=== PATIENT | female | born 1960 | race Caucasian/White ===

== ENCOUNTER 2020-06-05 14:05 | Outpatient (REF) | payer MEDICARE, MEDICAID, SELFPAY ==
--- NOTE | 2020-06-05 14:10 | XR_ITS ---
EXAMINATION: XR CHEST CLINICAL INFORMATION: Cough COMPARISON: CT chest noncontrast 01/25/2020, chest radiographs 05/04/2019 and 01/17/2018 TECHNIQUE: 2 views of the chest were obtained. FINDINGS: There is opacity right anterior medial base consistent with area of probable subsegmental atelectasis on CT 01/25/2020. Remainder of the lungs are clear with no lobar or segmental airspace consolidation. The heart is normal in size. The vascularity is normal. The costophrenic sulci are clear. The hilar and mediastinal contours are normal. No acute bony abnormality. XR/XR chest 2V IMPRESSION: 1. Opacity right anterior medial base consistent with probable subsegmental atelectasis on CT 01/25/2020. Recommend follow-up chest in 8 weeks to confirm resolution. If persistent, then follow-up CT chest without contrast. 2. Otherwise, no lobar or segmental airspace consolidation, vascular congestion, or effusion.
== END 2020-06-05 14:06 | disposition home or self-care (01) ==
LOC: HO.HMGCX 14:05
PROVIDERS: PCP Internal Medicine; Visit Provider Physician Assistant
DX: R05 Cough (principal); Z20.822 Contact with and (suspected) exposure to COVID-19; R07.81 Pleurodynia
CPT/HCPCS: 36415; 71046; U0003

== ENCOUNTER 2020-11-17 09:30 | Day surgery (SDC) | payer MEDICARE, MEDICAID, SELFPAY ==
[2020-11-13 15:50] VITALS: BMI 30.9
--- NOTE | 2020-11-16 10:43 | P.CONAN_ITS ---
HPI - Anesthesia Eval Consult details Narrative: 60yo F for Upper Endoscopy and Colonoscopy stable cardiac visit 11/2019 for incipient chf with 1 year f/u [facility] Active Problems Active Problems: All Active Problems (Updated 11/13/20 @ 16:05 by Dorothy Alvarez) Cough (Acute) Rib pain on left side (Acute) Past Medical History Medical History (HFpEF) heart failure with preserved ejection fraction Anxiety and depression Asthma Complex partial seizure disorder COVID-19 vaccine series started Dyskinesia Edema of both lower extremities Fatty liver History of seizure Low back pain PFO (patent foramen ovale) Surgical History Surgical History (Updated 11/13/20 @ 15:39 by Dorothy Alvarez) History of esophagogastroduodenoscopy (EGD) History of loop electrical excision procedure (LEEP) Hx of colonoscopy Social History Social History Patient Tobacco Use Status: Current everyday Tobacco user Tobacco use type: Cigarette Cigarette Packs Per Day: 1 Cigarettes Per Day: 20.0 Years Smoked: 30 Meds Allergies Allergy/AdvReac Type Severity Reaction Status Date / Time No Known Allergies Allergy Verified 11/13/20 15:39 [No Known Allergies*] Home Medications Medication Instructions Recorded Confirmed Last Taken Type alprazolam 0.5 mg tablet 0.5 mg PO BID PRN 06/05/20 11/13/20 11/17/20 08:00 History biotin 10,000 mcg capsule 10,000 mcg PO DAILY 06/05/20 11/13/20 Unknown History escitalopram oxalate 20 mg tablet 20 mg PO DAILY 06/05/20 11/13/20 11/17/20 08:00 History gabapentin 600 mg tablet 600 mg PO BEDTIME 06/05/20 11/13/20 Unknown History Anoro Ellipta INHALATION 11/13/20 Unknown History Ingrezza 1 cap PO DAILY 11/13/20 11/13/20 11/17/20 08:00 History albuterol sulfate 2 puff INHALATION Q4-6H PRN 11/13/20 11/13/20 Unknown History aspirin 81 mg PO DAILY 11/13/20 11/13/20 Unknown History cholecalciferol (vitamin D3) 50 mcg PO DAILY 11/13/20 11/13/20 Unknown History [Vitamin D3] gabapentin 300 mg PO BID 11/13/20 11/13/20 11/17/20 08:00 History oxcarbazepine 1 tab PO BID 11/13/20 11/13/20 11/17/20 08:00 History Exam Exam Date and Time: November 16, 2020 1043 Height,Weight and Vital Signs: Height 5 ft 4 in Weight 81.647 kg Narrative Narrative: Stress/Mibi nml perfusion 08/2019 Echo 07/2019 Mormal LV sys and diastolic function Mild MR Normal RV sys pressure No pericardial effusion No evidence of PFO EKG 06/2019 Normal sinus rhythm RBBB Cannot r/o inferior infarct (old) T wave abnormality, consider lateral ischemia No signif change from 04/2019 Assessment and Plan Assessment Anesthesia Assessment: Chart Reviewed
[2020-11-17 10:02] VITALS: BP 113/69; PULSE 77; RESP 16; TEMP 36.1; O2SAT 91
--- NOTE | 2020-11-17 10:08 | HO.ANESPROP2 ---
[facility] Active Problems Active Problems: All Active Problems (Updated 11/13/20 @ 16:05 by Dorothy Alvarez) Cough (Acute) Rib pain on left side (Acute) Past Medical History Medical History (HFpEF) heart failure with preserved ejection fraction Anxiety and depression Asthma Complex partial seizure disorder COVID-19 vaccine series started Dyskinesia Edema of both lower extremities Fatty liver History of seizure Low back pain PFO (patent foramen ovale) Surgical History Surgical History (Updated 11/13/20 @ 15:39 by Dorothy Alvarez) History of esophagogastroduodenoscopy (EGD) History of loop electrical excision procedure (LEEP) Hx of colonoscopy Social History Social History Patient Tobacco Use Status: Current everyday Tobacco user Tobacco use type: Cigarette Cigarette Packs Per Day: 1 Cigarettes Per Day: 20.0 Years Smoked: 30 Smoked in Last 30 Days: Yes Use of substances other than those prescribed or required for medical reasons: Yes Substance Use Frequency: Occasionally Are you DNR?: No Advance Directives: No Advance Directives Information Provided: No Advance Directives on File: No Meds Allergies Allergy/AdvReac Type Severity Reaction Status Date / Time No Known Allergies Allergy Verified 11/13/20 15:39 [No Known Allergies*] Active Medications: Current Medications Generic Name Dose Route Start Last Admin Trade Name Freq PRN Reason Stop Dose Admin Albuterol Sulfate 2.5 mg 11/17/20 06:17 Albuterol Sulfate (0.083%) 2.5 Mg/3 Ml Vial.Neb INHALE ONCE PRN Shortness of Breath/Wheezing Lactated Ringer's 500 mls @ 20 mls/hr 11/17/20 06:30 Lr IVCONT .Q24H KATHLEEN Home Medications Medication Instructions Recorded Confirmed Last Taken Type alprazolam 0.5 mg tablet 0.5 mg PO BID PRN 06/05/20 11/13/20 11/17/20 08:00 History biotin 10,000 mcg capsule 10,000 mcg PO DAILY 06/05/20 11/13/20 Unknown History escitalopram oxalate 20 mg tablet 20 mg PO DAILY 06/05/20 11/13/20 11/17/20 08:00 History gabapentin 600 mg tablet 600 mg PO BEDTIME 06/05/20 11/13/20 Unknown History albuterol sulfate 2 puff INHALATION Q4-6H PRN 11/13/20 11/13/20 Unknown History aspirin [Aspir-81] 81 mg PO DAILY 11/13/20 11/13/20 Unknown History cholecalciferol (vitamin D3) 50 mcg PO DAILY 11/13/20 11/13/20 Unknown History [Vitamin D3] gabapentin 300 mg PO BID 11/13/20 11/13/20 11/17/20 08:00 History oxcarbazepine 1 tab PO BID 11/13/20 11/13/20 11/17/20 08:00 History umeclidinium-vilanterol [Anoro INHALATION 11/13/20 Unknown History Ellipta] valbenazine [Ingrezza] 1 cap PO DAILY 11/13/20 11/13/20 11/17/20 08:00 History Exam Exam Date and Time: November 17, 2020 1008 Height,Weight and Vital Signs: Height 5 ft 4 in Weight 81.647 kg Last Vital Signs Temp 96.9 F 11/17/20 10:02 Pulse 77 11/17/20 10:02 Resp 16 11/17/20 10:02 BP 113/69 11/17/20 10:02 Pulse Ox 91 L 11/17/20 10:02 Airway Mallampati Class: III TM Dist: >3cm Heart: RRR Lungs: CTA
[2020-11-17] MEDS: Lactated Ringers 500 ML 20 ML IVCONT (10:17)
--- NOTE | 2020-11-17 10:23 | MHC.SHP ---
Pre-Procedural Eval Section A Date of Service: 11/17/20 The patient is an INPATIENT: No Changes since office visit: No Cold of Flu in the past 2 weeks, No New Medical Problems, No Changes in Medication and No Patient answered all questions The History & Physical has been completed within 30 days and I have reviewed it.: Yes Section B Chief Complaint: reflux disease,screening Allergies: Allergies Allergy/AdvReac Type Severity Reaction Status Date / Time No Known Allergies Allergy Verified 11/13/20 15:39 [No Known Allergies*] Plan I have reviewed the history and physical and performed a pertinent physical examination on my patient. No changes have occurred unless specified.
--- NOTE | 2020-11-17 11:00 | PM.OP ---
Brief Operative Note Date of Service: 11/17/20 Pre-op diagnosis: gerd screening Post-op diagnosis: same Procedure: egd, colonoscopy Surgeon: Angelito Adler Anesthesia: MAC Was an Chief Maintenance Supervisor used for this Procedure?: No Estimated blood loss (mL): 2 Pathology: other (bxs antrum,egj and icv) Condition: stable Disposition: PACU
[2020-11-17 11:02] VITALS: BP 98/64; PULSE 68; RESP 16; TEMP 36.5; O2SAT 95
[2020-11-17 11:17] VITALS: BP 116/68; PULSE 58; RESP 18; TEMP 36.2; O2SAT 94
--- NOTE | 2020-11-17 12:05 | OP_ITS ---
SURGEON: Angelito Adler MD INDICATIONS: Gastroesophageal reflux disease and colon cancer screening. PREOPERATIVE DIAGNOSIS: POSTOPERATIVE DIAGNOSIS: PROCEDURE PERFORMED: 1. Upper endoscopy with biopsy. 2. Colonoscopy to the terminal ileum with biopsy. ESTIMATED BLOOD LOSS: COMPLICATIONS: ANESTHESIA: ASSISTANTS: SPECIMENS: MEDICATIONS: Monitored anesthesia care. DESCRIPTION OF PROCEDURE: History and physical performed. The risks and benefits of the procedure were explained to the patient. Informed consent was obtained. The patient was placed in left lateral decubitus position. A digital rectal exam was performed prior to the colonoscopy. The Olympus video gastroscope was introduced into the esophagus, stomach, and duodenum. Examination was performed and the scope was removed. She was repositioned for colonoscopy. The Olympus pediatric video colonoscope was introduced into the rectum and advanced to the cecum without difficulty. The cecum was identified by transillumination, palpation, and identification of ileocecal valve. Abdominal wall pressure was used to assist in advancement of the scope due to looping in the sigmoid. Examination was performed and the scope was removed. She tolerated both procedures well and was taken to recovery area in stable condition. FINDINGS: UPPER ENDOSCOPY: Esophagus: The esophagus was normal. The EG junction showed no esophagitis. Biopsies were obtained from the EG junction, which was slightly irregular. Stomach: Stomach showed no evidence of masses, ulcers, or polyps. Antral biopsies were obtained to rule out H pylori. Duodenum: The bulb and second portion were normal. COLONOSCOPY: The terminal ileum appeared normal. There was some minor nonspecific inflammation at the ileocecal valve, which was biopsied. No polyps were identified. The quality of the prep was good. Retroflexed examination was normal. IMPRESSION: 1. Gastroesophageal reflux disease. 2. Essentially normal colonoscopy. RECOMMENDATIONS: 1. Follow up the biopsy results. 2. Repeat colonoscopy is recommended in 5 years because of family history of colon polyps. MD ILAN Daniels/ROXANNA / [id number]
== END 2020-11-17 11:48 | disposition home or self-care (01) ==
PROVIDERS: PCP Internal Medicine; Visit Provider Internal Medicine Gastroenterology
PROC: (CPT 43239; principal; 2020-11-17 10:40)
DX: Z12.11 Encounter for screening for malignant neoplasm of colon (principal); K21.9 Gastro-esophageal reflux disease without esophagitis; K76.0 Fatty (change of) liver, not elsewhere classified; I50.30 Unspecified diastolic (congestive) heart failure; G40.209 Localization-related (focal) (partial) symptomatic epilepsy and epileptic syndromes with complex partial seizures, not intractable, without status epilepticus; G24.9 Dystonia, unspecified; J45.909 Unspecified asthma, uncomplicated; F32.9 Major depressive disorder, single episode, unspecified; Q21.1 Atrial septal defect; F17.210 Nicotine dependence, cigarettes, uncomplicated; Z79.51 Long term (current) use of inhaled steroids; Z79.82 Long term (current) use of aspirin; Z79.899 Other long term (current) drug therapy; Z83.71 Family history of colonic polyps
CPT/HCPCS: 43239; G0105; 88305; 88342

== ENCOUNTER → 2020-11-23 10:25 | Outpatient (REF) | payer MEDICARE, MEDICAID, SELFPAY ==
--- NOTE | 2020-11-23 10:30 | CA_ITS ---
Transthoracic Echocardiogram Patient (Last, First, Middle): Kayleigh Grossman, Gender: Female Date of : 1960 Age: 60 Procedure Date: 11/23/2020 Procedure Type: Transthoracic Echocardiogram Location: OP Height: 165.1 cm Weight: 81.65 kg BSA: 1.89 m2 Heart Rate: bpm BP: 118 / 69 mmHg Inside Channel Account Manager: DONATO/YUNIEL Referring MD: Saad Bernal MD Symptoms: I51.89 DIASTOLIC DYSFUNCTION I50.30 HFpEF Study Quality: Fair ECG Rhythm: Sinus Conclusions: - The left ventricular systolic function is normal. The calculated ejection fraction is 62% by biplane method. - No obvious valvular pathology seen on this study. - There is mild dilatation of the ascending aorta measuring 4.00 cm. Findings Left Ventricle Normal left ventricular cavity size. There is normal left ventricular wall thickness. The left ventricular systolic function is normal. The calculated ejection fraction is 62% by biplane method. There is no evidence of regional wall motion abnormalities. E/E prime ratio is between 8 and 15 consistent with indeterminate filling pressures. Evidence suggests grade I (mild) diastolic dysfunction. Right Ventricle Normal right ventricular cavity size and systolic function. Atria Both atria are normal in size. Aortic Valve There is a normal trileaflet aortic valve. There is no aortic valve stenosis. There is no aortic valve regurgitation. Mitral Valve The mitral valve appears normal. There is no mitral valve stenosis. Trace to mild mitral regurgitation. Pulmonic Valve The pulmonic valve was not well visualized. Tricuspid Valve Normal tricuspid valve structure. There is mild tricuspid valve regurgitation. The pulmonary artery systolic pressure is normal. Great Vessels There is mild dilatation of the ascending aorta measuring 4.00 cm. Venous The inferior vena cava is normal in size and collapses greater than 50% with inspiration. Pericardium/Pleural There is no evidence of pericardial effusion. Prior Study Comparison Changes noted compared to prior study dated: 08/13/2019. See comments on ascending aorta. Recommendations, Care & Conclusions No obvious valvular pathology seen on this study. Measurements 2D Linear Measurements IVSd: 0.71 0.6-0.9/0.6-1.0 cm LVIDd: 4.75 3.9-5.3/4.2-5.9 cm LVIDd Index: 2.51 2.4-3.2/2.2-3.1 cm/m2 LVIDs: 3.38 2.0-3.6 cm LVPWd: 0.75 0.7-1.1 cm Ao Root: 2.90 2.1-3.5 cm LA Diam: 3.40 2.7-3.8/3.0-4.0 cm LAIDs Index: 1.80 1.5-2.3 cm/m2 LV Mass: 137.60 67-162/88-224 g LV Mass Index: 72.81 43-95/49-115 g/m2 LVOT Diam: 2.00 3.0+(-)1.3 cm 2D Systolic Function EF 4C: 59.10 >55% EF 2C: 65.80 >55% EF BiP: 61.60 >55% Mitral Valve MV Pk E: 0.71 MV PK A: 0.67 MV Decel Time: 289.00 E/A: 1.10 E'Lateral: 9.68 E'Medial: 5.87 E/E' Med: 12.10 E/E' Lat: 7.30 PHT: 85.00 MVA PHT: 2.59 Decel [place]: 2.46 Aortic Valve AoV Pk Rigoberto: 1.54 AoV Mn Rigoberto: 1.10 AoV VTI: 0.36 AoV Pk Grad: 9.00 Aov Mn Grad: 5.00 [place] Cont.VTI: 2.92 LVOT LVOT Pk Rigoberto: 1.50 LVOT Mn Rigoberto: 1.00 LVOT VTI: 0.33 LVOT Pk Grad: 9.00 LVOT Mn Grad: 5.00 LVOT Diam: 2.00 LVOT Area: 3.14 Diastolic Function MV Pk E: 0.71 MV Pk A: 0.67 E/A: 1.10 E'Medial: 5.87 E/E' Med: 12.10 E' Laterial: 9.68 E/E' Lat: 7.30 Tricuspid Valve TR Pk Rigoberto: 2.80 TR Pk Grad: 31.00 RA Press: 3.00 RVSP: 34.00 Great Vessels Aorta Ao Root-2D: 2.90 2.0-3.7 cm Ao Asc: 4.00 2.1-3.4 cm Ao Arch: 2.50 Updated in Other Vendor System with Status of Final Ag Cagle MD electronically signed on 11/24/2020 1:05:44 PM with status of Final
== END ==
LOC: HO.CARD 10:25
PROVIDERS: Visit Provider Internal Medicine Cardiovascular Disease
DX: I51.89 Other ill-defined heart diseases (principal); I50.30 Unspecified diastolic (congestive) heart failure
CPT/HCPCS: 93306

== ENCOUNTER → 2020-11-30 09:45 | Outpatient (BNVA) | payer MEDICARE, MEDICAID, SELFPAY | PROVIDERS: PCP Internal Medicine; Visit Provider Internal Medicine Cardiovascular Disease | DX: I50.30 Unspecified diastolic (congestive) heart failure (principal) | CPT/HCPCS: 93005; 99212 ==

== ENCOUNTER 2020-12-13 10:49 | Emergency (ER) | payer MEDICARE, MEDICAID, SELFPAY ==
--- NOTE | ~2020-12-13 | US_ITS ---
EXAMINATION: US VENOUS ULTRASOUND WITH DOPPLER LOWER EXTREMITY, RIGHT CLINICAL INFORMATION: Right lower extremity pain. Assess for occult DVT. COMPARISON: None TECHNIQUE: Ultrasound of the deep veins is performed from the hip to the calf with compression sonography and color and pulse Doppler assessment. Spectral analysis with color-flow imaging is performed. FINDINGS: There is normal venous compression and respiratory variation and augmented flow. The visualized common femoral vein, superficial femoral vein, profunda femoral vein, popliteal vein, and the trifurcation region shows no evidence of deep venous thrombosis. No popliteal fossa cyst demonstrated. US/US venous duplex LE RT IMPRESSION: No DVT demonstrated in the right lower extremity.
[2020-12-13 10:59] VITALS: BP 125/85; PULSE 69; RESP 17; TEMP 36.9; O2SAT 96; BMI 30.9
--- NOTE | 2020-12-13 11:55 | ED.LOWEXIN ---
HPI - Extremity Injury (Lower) General Chief Complaint: Extremity Injury, Lower Stated Complaint: R LEG PAIN Time Seen by Provider: 12/13/20 11:29 History of Present Illness HPI Narrative: Patient complains of right leg pain mostly in the back of the leg of both the thigh and the calf which began today, there is no injury there has been no fever there is no redness or rash, she has no difficulty ambulating there is no numbness weakness or tingling Related Data Home Medications Medication Instructions Recorded Confirmed alprazolam 0.5 mg tablet 0.5 mg PO BID PRN 06/05/20 11/30/20 biotin 10,000 mcg capsule 10,000 mcg PO DAILY 06/05/20 11/30/20 escitalopram oxalate 20 mg tablet 20 mg PO DAILY 06/05/20 11/30/20 gabapentin 600 mg tablet 600 mg PO BEDTIME 06/05/20 11/30/20 albuterol sulfate 90 mcg/actuation 2 puff INHALATION Q4-6H PRN 11/13/20 11/30/20 aerosol inhaler aspirin 81 mg tablet,delayed 81 mg PO DAILY 11/13/20 11/30/20 release cholecalciferol (vitamin D3) 50 50 mcg PO DAILY 11/13/20 11/30/20 mcg (2,000 unit) capsule (Vitamin D3) umeclidinium 62.5 mcg-vilanterol INHALATION 11/13/20 11/30/20 25 mcg/actuation powdr for inhalation (Anoro Ellipta) oxcarbazepine 300 mg tablet 300 mg PO BID 11/30/20 11/30/20 valbenazine 80 mg capsule 80 mg PO DAILY 11/30/20 11/30/20 (Ingrezza) Previous Rx's Medication Instructions Recorded furosemide 20 mg tablet (Lasix) 20 mg PO DAILY 90 Days #100 tab 12/06/20 Allergies Allergy/AdvReac Type Severity Reaction Status Date / Time No Known Allergies Allergy Verified 12/13/20 10:59 [No Known Allergies*] Review of Systems Review of Systems: Positive for right leg pain Negatives are no fever no chills no dizziness no weakness no fainting no chest pain no shortness of breath no pain with a deep breath no abdominal pain no nausea or vomiting no skin rash no numbness weakness or tingling no joint swelling no back pain Yes all other systems are reviewed and are negative PMFSH Past Medical History Source: nursing notes reviewed Medical History (Updated 12/13/20 @ 14:08 by MARGARITA Ray) (HFpEF) heart failure with preserved ejection fraction Anxiety and depression Asthma Complex partial seizure disorder COVID-19 vaccine series started Dyskinesia Edema of both lower extremities Fatty liver History of seizure Low back pain PFO (patent foramen ovale) Surgical History History of esophagogastroduodenoscopy (EGD) History of loop electrical excision procedure (LEEP) Hx of colonoscopy Social History Social History Patient Tobacco Use Status: Current everyday Tobacco user Tobacco use type: Cigarette Cigarette Packs Per Day: 1 Cigarettes Per Day: 20.0 Years Smoked: 30 Advance Directives: Yes Advance Directives Information Provided: Yes Advance Directives on File: No Physical Exam Vital Signs: Vital Signs: Last Vital Signs Temp 98.4 F 12/13/20 10:59 Pulse 69 12/13/20 10:59 Resp 17 12/13/20 10:59 BP 125/85 12/13/20 10:59 Pulse Ox 96 12/13/20 10:59 Body Mass Index 30.9 General appearance is no distress Head is normocephalic atraumatic Neck is supple The chest is clear to auscultation bilateral no pleuritic pain with deep breath Abdomen soft nontender Extremities full range of motion x4 The right leg exam there is no swelling no redness no wounds it is neurovascular intact distal, there is tenderness to the posterior lower and popliteal areas, the knee is not swollen there is full range of motion in hip knee and ankle and she is walking without a limp Course Course Course Narrative: Patient with normal exam of the right lower extremity complaining of a new onset of posterior leg pain is sent ultrasound to rule out DVT The ultrasound was negative patient is well-appearing walks easily no sign of any infection and she is discharged with no evidence of DVT, joint infection, ischemic limb, no evidence of cellulitis Discharge Plan Discharge Clinical Impression: Leg pain, right Patient Disposition: Home, Self-Care Additional Instructions: Your ultrasound was normal with no clot or no other emergent abnormality Your exam did not show any sign of joint infection or skin infection and no sign of any serious condition now Follow with primary doctor, if pain continues or specially of swelling develops you may need a 2nd ultrasound to confirm that there is no blood clot Prescriptions: No Action furosemide [Lasix] 20 mg tablet 20 mg PO DAILY 90 Days Qty: 100 RF: 1 Anoro Ellipta 62.5-25 mcg/actuation blister with device inhalation RF: 0 albuterol sulfate 90 mcg/actuation Hfa Aerosol Inhaler 2 puff inhalation Q4-6H PRN (Reason: Shortness Of Breath Or Wheezing) RF: 0 aspirin 81 mg Tablet,Delayed Release (Dr/Ec) 81 mg PO DAILY RF: 0 cholecalciferol (vitamin D3) [Vitamin D3] 50 mcg (2,000 unit) Capsule 50 mcg PO DAILY RF: 0 oxcarbazepine 300 mg tablet 300 mg PO BID RF: 0 Ingrezza 80 mg capsule 80 mg PO DAILY RF: 0 gabapentin 600 mg tablet 600 mg PO BEDTIME RF: 0 escitalopram oxalate 20 mg tablet 20 mg PO DAILY RF: 0 alprazolam 0.5 mg tablet 0.5 mg PO BID PRN (Reason: Anxiety) RF: 0 biotin 10,000 mcg capsule 10,000 mcg PO DAILY RF: 0 Interventions: ED Discharge Assessment Last Done: 12/13/20 14:12 Discharge Date/Time: 12/13/20 14:12
== END 2020-12-13 14:12 | disposition home or self-care (01) ==
PROVIDERS: Emergency Provider Emergency Medicine; PCP Internal Medicine
DX: M79.604 Pain in right leg (principal); I50.31 Acute diastolic (congestive) heart failure; Z79.82 Long term (current) use of aspirin; Z79.899 Other long term (current) drug therapy
CPT/HCPCS: 93971; 99283; 99284

== ENCOUNTER 2021-04-15 14:21 | Emergency (ER) | payer MEDICARE, MEDICAID, SELFPAY ==
--- NOTE | ~2021-04-15 | XR_ITS ---
EXAMINATION: XR RIBS, RIGHT CLINICAL INFORMATION: Trauma. COMPARISON: Chest x-ray 06/05/2020 TECHNIQUE: 3 views of the right ribs were obtained. Chest one view FINDINGS: Lungs are clear. No consolidation, pneumothorax, or pleural effusion. The cardiomediastinal silhouette and pulmonary vasculature are normal. Osseous structures are unremarkable. Ribs are intact. No fractures are identified. XR/XR ribs RT min 3V w CXR1V IMPRESSION: Unremarkable chest exam. No visible right rib fractures seen.
--- NOTE | ~2021-04-15 | XR_ITS ---
EXAMINATION: XR SHOULDER, RIGHT CLINICAL INFORMATION: Fall. Injury. COMPARISON: None TECHNIQUE: AP external rotation, Grashey, scapular Y, and axillary views of the right shoulder. FINDINGS: There is a displaced, comminuted distal clavicular fracture with multiple fracture fragments. A superior fracture fragment measures up to 1.8 cm. Associated widening of the acromioclavicular joint space. No glenohumeral fracture, joint space narrowing, or marginal osteophytes. No osseous erosion. XR/XR shoulder RT min 2V IMPRESSION: Displaced and comminuted distal right clavicular fracture.
[2021-04-15 14:30] VITALS: BP 121/65; PULSE 78; RESP 18; TEMP 36.9; O2SAT 96; BMI 30.9
--- NOTE | 2021-04-15 16:16 | ED.FALL ---
HPI - Fall General Chief Complaint: Fall Stated Complaint: fall r arm inj and r side Time Seen by Provider: 04/15/21 16:03 Source: patient Mode of arrival: ambulatory Limitations: no limitations History of Present Illness HPI Narrative: 61-year-old female with a history of congestive heart failure, seizure disorder, asthma, anxiety and depression here with complaints of fall. Patient tells me just prior to arrival she tripped going up the stairs striking her right shoulder and right chest wall. There was no head injury or loss of consciousness. She is here complaining of chest wall pain and shoulder pain. No neck pain, back pain, abdominal pain, headache, vision changes, vomiting or diarrhea. No anticoagulation use Related Data Home Medications Medication Instructions Recorded Confirmed alprazolam 0.5 mg tablet 0.5 mg PO BID PRN 06/05/20 11/30/20 biotin 10,000 mcg capsule 10,000 mcg PO DAILY 06/05/20 11/30/20 escitalopram oxalate 20 mg tablet 20 mg PO DAILY 06/05/20 11/30/20 gabapentin 600 mg tablet 600 mg PO BEDTIME 06/05/20 11/30/20 albuterol sulfate 90 mcg/actuation 2 puff INHALATION Q4-6H PRN 11/13/20 11/30/20 aerosol inhaler aspirin 81 mg tablet,delayed 81 mg PO DAILY 11/13/20 11/30/20 release cholecalciferol (vitamin D3) 50 50 mcg PO DAILY 11/13/20 11/30/20 mcg (2,000 unit) capsule (Vitamin D3) umeclidinium 62.5 mcg-vilanterol INHALATION 11/13/20 11/30/20 25 mcg/actuation powdr for inhalation (Anoro Ellipta) oxcarbazepine 300 mg tablet 300 mg PO BID 11/30/20 11/30/20 valbenazine 80 mg capsule 80 mg PO DAILY 11/30/20 11/30/20 (Ingrezza) Previous Rx's Medication Instructions Recorded furosemide 20 mg tablet (Lasix) 20 mg PO DAILY 90 Days #100 tab 02/27/21 oxycodone-acetaminophen 5 mg-325 1 tab PO Q8H PRN #10 tab 04/15/21 mg tablet (Percocet) Allergies Allergy/AdvReac Type Severity Reaction Status Date / Time No Known Allergies Allergy Verified 12/13/20 10:59 [No Known Allergies*] Review of Systems Review of Systems: Yes all other systems are reviewed and are negative Constitutional: Constitutional: Reports no additional constitutional complaints, Denies body ache(s), Denies chills, Denies fever(s), Denies headache(s) and Denies weakness Eyes: Eyes: Reports no additional eye complaints and Denies change in vision ENT: Reports system reviewed and no additional complaints, except as documented, Denies dizziness, Denies headache(s), Denies nasal congestion, Denies nasal discharge and Denies neck pain Cardiovascular: Cardiovascular: Reports no additional cardiovascular complaints, Reports chest pain, Denies leg edema and Denies dyspnea Respiratory: Respiratory: Reports no additional respiratory complaints, Denies cough and Denies dyspnea Gastrointestinal: Gastrointestinal: Reports no additional gastrointestinal complaints, Denies abdominal pain, Denies diarrhea, Denies nausea and Denies vomiting Genitourinary: Genitourinary: Reports no additional female genitourinary complaints and Denies urinary incontinence Musculoskeletal: Musculoskeletal: Reports no additional musculoskeletal complaints, Denies back pain, Reports arthralgias, Denies joint swelling, Denies neck pain, Denies numbness and Denies tingling Integumentary/Breasts: Skin/Breast: Reports system reviewed and no additional complaints, except as docu and Denies rash Neurologic: Reports system reviewed and no additional complaints, except as documented, Denies Abnormal speech present, Denies dizziness, Denies headache(s), Denies numbness, Denies tingling and Denies weakness PMFSH Past Medical History Attestation statement: The following information was validated with the patient. Source: old records reviewed and nursing notes reviewed Medical History (HFpEF) heart failure with preserved ejection fraction Anxiety and depression Asthma Complex partial seizure disorder COVID-19 vaccine series started Dyskinesia Edema of both lower extremities Fatty liver History of seizure Low back pain PFO (patent foramen ovale) Surgical History History of esophagogastroduodenoscopy (EGD) History of loop electrical excision procedure (LEEP) Hx of colonoscopy Social History Social History Patient Tobacco Use Status: Current everyday Tobacco user Tobacco use type: Cigarette Cigarette Packs Per Day: 1 Cigarettes Per Day: 20.0 Years Smoked: 30 Advance Directives: No Advance Directives Information Provided: No Physical Exam Vital Signs: Vital Signs: Last Vital Signs Temp 98.4 F 04/15/21 14:30 Pulse 78 04/15/21 14:30 Resp 18 04/15/21 14:30 BP 121/65 04/15/21 14:30 Pulse Ox 96 04/15/21 14:30 Body Mass Index 30.9 Const: General: cooperative, healthy appearing, comfortable and no acute distress Orientation/consciousness: patient oriented x3 Limitations: no limitations HENMT: Head: Yes normal to inspection Ears: hearing grossly normal bilaterally General nose exam: Normal external nose present Face and sinus: Yes normal facial exam Mouth: Normal oral and palatal mucosa present Throat: Yes posterior oropharynx normal Eyes: General: appearance normal, both eyes and all related structures Pupils: Equal, round and reactive pupils present Neck: Neck: Yes normal visual inspection Chest: Other: There is tenderness, mild the most is noted over the right upper chest wall and and teary or shoulder. There is also tenderness over the right proximal humerus. Limited range of motion of the right upper extremity due to pain. There is also tenderness to the right lateral chest wall with no ecchymosis or crepitus Chest palpation & inspection: normal inspection of the chest Resp: Effort & Inspection: normal respiratory effort Auscultation: clear to auscultation bilaterally Cardio: Rate: regular rate Rhythm: regular rhythm Peripheral pulses: Peripheral pulses 2+ throughout GI: Inspection: Yes normal to inspection Palpation (GI): Soft to palpation and nontender Auscultation: normal bowel sounds Back/Spine/Pelvis: Thoracic/Lumbar Spine: thoracic and lumbar spine normal to inspection Skin: General skin exam: no rashes or lesions noted Neuro: General: patient oriented x3, no focal motor deficits and normal sensation to monofilament Cranial nerves: Yes CN's II-XII intact bilaterally, Yes Equal, round and reactive pupils present, Yes Bilaterally intact EOM present, Yes Nystagmus not present and Yes Normal facial strength present Cognition (Neuro): normal cognition Speech: No Abnormal speech present Gait exam (Neuro): Normal gait present Motor exam (neuro): 5/5 motor strength present throughout Sensory Exam: Normal double simultaneous stimulation for sensation Extrem: General: Yes normal to inspection, Yes no pedal edema and Yes no calf tenderness Course Course Course Narrative: Mechanical fall here with right shoulder and right chest wall pain. Will check images, provide analgesia and reassess 1715- chest x-ray and ribs are normal. Right shoulder shows a distal comminuted right clavicle fracture. Patient was placed a sling. Will refer to Orthopedics as outpatient. Pain is better controlled. Reviewed worrisome signs and symptoms of when to return to the emergency department. Comfortable discharge home. Procedures Procedure Narrative Procedure Narrative: sling MDM - Fall Medical Records Attestation: I reviewed the patient's medical records. Lab Data Attestation: I reviewed the patient's lab results. Imaging Data right ribs/chest -xray: Attestation: I personally reviewed and interpreted this imaging study as follows: Radiologist's impression: [address] [address] XRay Report Signed Patient: Kayleigh Grossman MR#: [id number] : 1960 Acct:[id number] Age/Sex: 61 / F ADM Date: 04/15/21 Loc: .ED Attending Dr: Ordering Physician: Bridgett Herring NP Date of Service: 04/15/21 Procedure(s): XR ribs RT min 3V w CXR1V Accession Number(s): [id number] cc: Bridgett Herring NP~ EXAMINATION: XR RIBS, RIGHT CLINICAL INFORMATION: Trauma. COMPARISON: Chest x-ray 06/05/2020 TECHNIQUE: 3 views of the right ribs were obtained. Chest one view FINDINGS: Lungs are clear. No consolidation, pneumothorax, or pleural effusion. The cardiomediastinal silhouette and pulmonary vasculature are normal. Osseous structures are unremarkable. Ribs are intact. No fractures are identified. XR/XR ribs RT min 3V w CXR1V IMPRESSION: Unremarkable chest exam. No visible right rib fractures seen. right shoulder x-ray: Attestation: I personally reviewed and interpreted this imaging study as follows: Radiologist's impression: EXAMINATION: XR SHOULDER, RIGHT CLINICAL INFORMATION: Fall. Injury.? COMPARISON: None? TECHNIQUE: AP external rotation, Grashey, scapular Y, and axillary views of the right shoulder. FINDINGS: There is a displaced, comminuted distal clavicular fracture with multiple fracture fragments. A superior fracture fragment measures up to 1.8 cm. Associated widening of the acromioclavicular joint space. No glenohumeral fracture, joint space narrowing, or marginal osteophytes. No osseous erosion.? XR/XR shoulder RT min 2V IMPRESSION: Displaced and comminuted distal right clavicular fracture. Discharge Plan Discharge Clinical Impression: Chest wall contusion Fracture, clavicle Qualifiers: Encounter type: initial encounter Clavicle location: lateral end Fracture type: closed Fracture alignment: displaced Laterality: right Qualified Code(s): S42.031A - Displaced fracture of lateral end of right clavicle, initial encounter for closed fracture Patient Disposition: Home, Self-Care Instructions: Clavicle Fracture (ED), Rib Contusion (ED) Additional Instructions: sling for comfort ice to the area call Orthopedics for follow-up Prescriptions: New oxycodone-acetaminophen [Percocet] 5-325 mg tablet 1 tab PO Q8H PRN (Reason: pain) Qty: 10 RF: 0 No Action furosemide [Lasix] 20 mg tablet 20 mg PO DAILY 90 Days Qty: 100 RF: 1 Anoro Ellipta 62.5-25 mcg/actuation blister with device inhalation RF: 0 albuterol sulfate 90 mcg/actuation Hfa Aerosol Inhaler 2 puff inhalation Q4-6H PRN (Reason: Shortness Of Breath Or Wheezing) RF: 0 aspirin 81 mg Tablet,Delayed Release (Dr/Ec) 81 mg PO DAILY RF: 0 cholecalciferol (vitamin D3) [Vitamin D3] 50 mcg (2,000 unit) Capsule 50 mcg PO DAILY RF: 0 oxcarbazepine 300 mg tablet 300 mg PO BID RF: 0 Ingrezza 80 mg capsule 80 mg PO DAILY RF: 0 gabapentin 600 mg tablet 600 mg PO BEDTIME RF: 0 escitalopram oxalate 20 mg tablet 20 mg PO DAILY RF: 0 alprazolam 0.5 mg tablet 0.5 mg PO BID PRN (Reason: Anxiety) RF: 0 biotin 10,000 mcg capsule 10,000 mcg PO DAILY RF: 0 Referrals: Ian Means MD [Physician] - 2 days Discharge Date/Time: 04/15/21 17:13
[2021-04-15] MEDS: Acetaminophen 325 MG TABLET 650 MG PO (16:35)
[2021-04-15] MEDS: oxyCODONE HCl Immed Release 5 MG TABLET PO (16:36)
== END 2021-04-15 17:13 | disposition home or self-care (01) ==
PROVIDERS: Emergency Provider Internal Medicine; PCP Internal Medicine
DX: S42.031A Displaced fracture of lateral end of right clavicle, initial encounter for closed fracture (principal); S20.211A Contusion of right front wall of thorax, initial encounter; W10.8XXA Fall (on) (from) other stairs and steps, initial encounter; Y93.89 Activity, other specified; Y92.018 Other place in single-family (private) house as the place of occurrence of the external cause; Y99.9 Unspecified external cause status
CPT/HCPCS: 71101; 73030; 99283

== ENCOUNTER 2021-05-14 08:48 | Outpatient (REF) | payer MEDICARE, MEDICAID, SELFPAY ==
--- NOTE | ~2021-05-14 | XR_ITS ---
EXAMINATION: XR CLAVICLE, RIGHT CLINICAL INFORMATION: Fracture of unspecified clavicle. COMPARISON: XR right shoulder 04/15/2021. TECHNIQUE: AP and AP angled views of the right clavicle. XR/XR clavicle RT FINDINGS AND IMPRESSION: The displaced comminuted fracture of the distal clavicle with widening of the acromioclavicular joint is unchanged in appearance. There is no significant callus formation.
== END 2021-05-14 08:49 | disposition home or self-care (01) ==
LOC: HO.HOSX 08:48
PROVIDERS: Visit Provider Physician Assistant
DX: S42.031D Displaced fracture of lateral end of right clavicle, subsequent encounter for fracture with routine healing (principal)
CPT/HCPCS: 73000; 99202

== ENCOUNTER 2021-06-11 07:48 | Outpatient (REF) | payer MEDICARE, MEDICAID, SELFPAY ==
--- NOTE | ~2021-06-11 | XR_ITS ---
EXAMINATION: XR CLAVICLE, RIGHT CLINICAL INFORMATION: Fracture distal clavicle. Follow-up COMPARISON: Right clavicle 05/14/2021 TECHNIQUE: Two views of the right clavicle. FINDINGS: There is minimally displaced distal clavicular fracture with osteopenia. There is no callus formation or sclerosis seen yet. Mild widening of the AC joint is present. XR/XR clavicle RT IMPRESSION: There is no callus formation visualized in the comminuted distal clavicular fracture with mild AC separation.. There is osteopenia involving the fractured distal clavicle. No major change since 05/14/2021.
== END 2021-06-11 07:49 | disposition home or self-care (01) ==
LOC: HO.HOSX 07:48
PROVIDERS: Visit Provider Physician Assistant
DX: S42.031D Displaced fracture of lateral end of right clavicle, subsequent encounter for fracture with routine healing (principal)
CPT/HCPCS: 73000; 99212

== ENCOUNTER 2021-07-11 08:17 | Outpatient (REF) | payer MEDICARE, MEDICAID, SELFPAY ==
--- NOTE | ~2021-07-11 | US_ITS ---
EXAMINATION: US ABDOMEN COMPLETE CLINICAL INFORMATION: Right upper quadrant pain. COMPARISON: Ultrasound abdomen 11/18/2018. TECHNIQUE: Real-time imaging of the abdominal viscera. FINDINGS: PANCREAS: Normal. ABDOMINAL AORTA: The proximal, mid, and distal segments are normal in caliber. INFERIOR VENA CAVA: Visualized portions are normal. LIVER: The liver is normal in size. The liver contour is normal. Liver echotexture is slightly increased. No focal hepatic lesion. There is no intrahepatic biliary duct dilatation seen. GALLBLADDER: The gallbladder is physiologically distended. Multiple mobile gallstones are present. The gallbladder wall appears slightly thickened, focal area measuring up to 0.9 cm. The public health technologist does not report patient is tender the gallbladder. There is no pericholecystic fluid. COMMON BILE DUCT: Normal in caliber measuring 0.4 cm in diameter. RIGHT KIDNEY: There are small cysts, largest measuring 1 cm. No hydronephrosis or renal calculi. The kidney measures 9.9 cm in maximum dimension. LEFT KIDNEY: There are small cysts, largest measuring 1.9 x 1.1 x 1.3 cm. No hydronephrosis or renal calculi. The kidney measures 10.7 cm in maximum dimension. SPLEEN: Normal. The spleen measures 9.6 cm in maximum dimension. FREE FLUID: None. US/US abdomen complete IMPRESSION: Gallstones. Area of gallbladder wall thickening. Possible cholecystitis should be excluded. Slightly echogenic liver probably representing fatty infiltration. Bilateral renal cysts.
== END 2021-07-11 08:18 | disposition home or self-care (01) ==
LOC: HO.US 08:17
PROVIDERS: PCP Internal Medicine; Visit Provider Nurse Practitioner Adult Health
DX: R10.11 Right upper quadrant pain (principal)
CPT/HCPCS: 76700

== ENCOUNTER → 2021-08-10 10:43 | Outpatient (BNVA) | payer MEDICARE, MEDICAID, SELFPAY | PROVIDERS: PCP Internal Medicine; Referring Provider Internal Medicine; Visit Provider Surgery | DX: K80.00 Calculus of gallbladder with acute cholecystitis without obstruction (principal) | CPT/HCPCS: 99202 ==

== ENCOUNTER 2021-11-26 06:56 | Day surgery (SDC) | payer MEDICARE, MEDICAID, SELFPAY ==
--- NOTE | 2021-11-23 09:46 | HO.ANESPROP2 ---
Documented by User: Maia Waters NP 11/23/21 09:53 HPI - Anesthesia Eval Consult details Narrative: 61yo F for Cholecystectomy Laparoscopic possible open Follows [facility] [place], due 11/2021. Per Sherlyn Collins, ok to proceed with surgery if patient without new concerning cardiac symptoms. [facility] Active Problems Active Problems: All Active Problems (Updated 08/10/21 @ 15:43 by Heri Younger MD) Cholecystitis, acute with cholelithiasis (Acute) Closed fracture of distal clavicle (Acute) (HFpEF) heart failure with preserved ejection fraction (Acute) Cough (Acute) Rib pain on left side (Acute) Past Medical History Medical History (HFpEF) heart failure with preserved ejection fraction Anxiety and depression Asthma Complex partial seizure disorder COVID-19 vaccine series started Dyskinesia Edema of both lower extremities Fatty liver History of seizure Low back pain PFO (patent foramen ovale) Family History Family History Mother Pancreatic cancer Surgical History Surgical History History of esophagogastroduodenoscopy (EGD) History of loop electrical excision procedure (LEEP) Hx of colonoscopy Social History Social History Patient Tobacco Use Status: Current everyday Tobacco user Tobacco use type: Cigarette Cigarette Packs Per Day: 1 Cigarettes Per Day: 20.0 Years Smoked: 30 Patient Interested in Nicotine Replacement: Yes Patient Given Instructions on How to Stop Smoking: Yes Date Education Initiated: 11/26/21 Second Hand Smoke Exposure: Yes Use of substances other than those prescribed or required for medical reasons: Yes Substance Use Frequency: Weekly Are you DNR?: No Advance Directives: No Advance Directives Information Provided: Yes Recently lost weight without trying: No 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al status: 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 Meds Allergies Allergy/AdvReac Type Severity Reaction Status Date / Time No Known Allergies Allergy Verified 08/10/21 11:21 [No Known Allergies*] Home Medications Medication Instructions Recorded Confirmed Last Taken Type alprazolam 0.5 mg tablet 0.5 mg PO BID PRN Anxiety 06/05/20 08/10/21 11/17/20 08:00 History biotin 10,000 mcg capsule 10,000 mcg PO DAILY 06/05/20 08/10/21 Unknown History escitalopram oxalate 20 mg tablet 20 mg PO DAILY 06/05/20 08/10/21 11/17/20 08:00 History gabapentin 600 mg tablet 600 mg PO BEDTIME 06/05/20 08/10/21 Unknown History albuterol sulfate 90 mcg/actuation 2 puff inhalation Q4-6H PRN 11/13/20 08/10/21 Unknown History aerosol inhaler Shortness Of Breath Or Wheezing aspirin 81 mg tablet,delayed 81 mg PO DAILY 11/13/20 08/10/21 Unknown History release cholecalciferol (vitamin D3) 50 50 mcg PO DAILY 11/13/20 08/10/21 Unknown History mcg (2,000 unit) capsule (Vitamin D3) umeclidinium 62.5 mcg-vilanterol inhalation 11/13/20 08/10/21 Unknown History 25 mcg/actuation powdr for inhalation (Anoro Ellipta) oxcarbazepine 300 mg tablet 300 mg PO BID 11/30/20 08/10/21 Unknown History valbenazine 80 mg capsule 80 mg PO DAILY 11/30/20 08/10/21 Unknown History (Ingrezza) Exam Exam Date and Time: November 23, 2021 0946 Narrative Narrative: ECHO 11/2020 Conclusions: - The left ventricular systolic function is normal.? The ? calculated ejection fraction is 62% by biplane method. ? - No obvious valvular pathology seen on this study.? - There is mild dilatation of the ascending aorta measuring 4.00 cm.? ?? Assessment and Plan Assessment Anesthesia Assessment: Chart Reviewed Documented by User: Alexandra Babb MD 11/26/21 09:42 PMFSH Past Medical History Medical History (HFpEF) heart failure with preserved ejection fraction Anxiety and depression Asthma Complex partial seizure disorder COVID-19 vaccine series started Dyskinesia Edema of both lower extremities Fatty liver History of seizure Low back pain PFO (patent foramen ovale) Family History Family History Mother Pancreatic cancer Surgical History Surgical History History of esophagogastroduodenoscopy (EGD) History of loop electrical excision procedure (LEEP) Hx of colonoscopy History of Problems with Anesthesia: No Social History Social History Patient Tobacco Use Status: Current everyday Tobacco user Tobacco use type: Cigarette Cigarette Packs Per Day: 1 Cigarettes Per Day: 20.0 Years Smoked: 30 Patient Interested in Nicotine Replacement: Yes Patient Given Instructions on How to Stop Smoking: Yes Date Education Initiated: 11/26/21 Second Hand Smoke Exposure: Yes Use of substances other than those prescribed or required for medical reasons: Yes Substance Use Frequency: Weekly Are you DNR?: No Advance Directives: No Advance Directives Information Provided: Yes Recently lost weight without trying: No 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al status: 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 Meds Allergies Allergy/AdvReac Type Severity Reaction Status Date / Time No Known Allergies Allergy Verified 08/10/21 11:21 [No Known Allergies*] Home Medications Medication Instructions Recorded Confirmed Last Taken Type alprazolam 0.5 mg tablet 0.5 mg PO BID PRN Anxiety 06/05/20 08/10/21 11/17/20 08:00 History biotin 10,000 mcg capsule 10,000 mcg PO DAILY 06/05/20 08/10/21 Unknown History escitalopram oxalate 20 mg tablet 20 mg PO DAILY 06/05/20 08/10/21 11/17/20 08:00 History gabapentin 600 mg tablet 600 mg PO BEDTIME 06/05/20 08/10/21 Unknown History albuterol sulfate 90 mcg/actuation 2 puff inhalation Q4-6H PRN 11/13/20 08/10/21 Unknown History aerosol inhaler Shortness Of Breath Or Wheezing aspirin 81 mg tablet,delayed 81 mg PO DAILY 11/13/20 08/10/21 Unknown History release cholecalciferol (vitamin D3) 50 50 mcg PO DAILY 11/13/20 08/10/21 Unknown History mcg (2,000 unit) capsule (Vitamin D3) umeclidinium 62.5 mcg-vilanterol inhalation 11/13/20 08/10/21 Unknown History 25 mcg/actuation powdr for inhalation (Anoro Ellipta) oxcarbazepine 300 mg tablet 300 mg PO BID 11/30/20 08/10/21 Unknown History valbenazine 80 mg capsule 80 mg PO DAILY 11/30/20 08/10/21 Unknown History (Ingrezza) Exam Airway Mallampati Class: III TM Dist: >3cm Neck ROM: Full Partial: Upper Loose/Missing/Broken Teeth: Yes and Upper (Missing upper central and left incisors) Heart: RRR Lungs: CTA Assessment and Plan Assessment Anesthesia Assessment: Anesthesia Plan Discussed Final Anesthetic Review History of Problems with Anesthesia: No NPO: Yes ASA Class: III Final Preanesthetic Review: Meds/Allgs Chart Reviewed, Consent Obtained/Reviewed and Anes Risks/Benef Reviewed Patient Risk: Intermediate Procedure Risk: Intermediate Anesthetic Plan Anesthetic Plan: GA Disposition: Standard PACU
--- NOTE | 2021-11-26 | ECG_ITS ---
Test Reason : CHF ASTHMA Blood Pressure : / mmHG Vent. Rate : 065 BPM Atrial Rate : 065 BPM P-R Int : 158 ms QRS Dur : 138 ms QT Int : 450 ms P-R-T Axes : 029 001 004 degrees QTc Int : 468 ms Normal sinus rhythm Right bundle branch block Abnormal ECG When compared with ECG of 04-JUL-2019 21:00, QT has shortened Referred By: Maia Waters Electronically Signed By:LOLIS LORENZ MD
[2021-11-26 07:45] LABS: Hematocrit 44.5 % (37.0-47.0); Hemoglobin 14.4 g/dl (12.0-16.0); Mean Corpuscular HGB Conc 32.4 g/dl (31.0-35.0); Mean Corpuscular Hemoglobin 30.1 pg (27.0-33.0); Mean Corpuscular Volume 93.1 fL (80.0-98.0); Mean Platelet Volume 9.6 fL (9.4-12.3); Platelet Count 407 X10*3/uL (160-400); Red Blood Count 4.78 X10*6/uL (4.20-5.50); Red Cell Distribution Width 14.9 % (11.0-16.0); White Blood Count 7.2 X10*3/uL (4.8-10.8)
[2021-11-26 07:53] VITALS: BMI 32.5
[2021-11-26 07:56] VITALS: BP 133/77; PULSE 62; RESP 18; TEMP 36.6; O2SAT 97
[2021-11-26 08:00] LABS: Anion Gap 12 (12-20); Blood Urea Nitrogen 17 mg/dL (9-16); Calcium 8.8 mg/dL (8.4-10.2); Carbon Dioxide 28 mmol/L (22-29); Chloride 104 mmol/L (96-108); Estimated Glomerular Filt Rate 58; Glucose Fasting 98 mg/dL (60-99); Potassium 4.5 mmol/L (3.3-5.1); Sodium 139 mmol/L (135-145)
[2021-11-26] MEDS: Acetaminophen 325 MG TABLET 650 MG PO (08:36)
[2021-11-26] MEDS: Lactated Ringers 1,000 ML 50 ML IVCONT (08:37)
--- NOTE | 2021-11-26 09:12 | P.HPSUR_ITS ---
Pre-Procedural Eval Section A Date of Service: 11/26/21 The patient is an INPATIENT: No Changes since office visit: Yes Patient answered all questions; No Cold of Flu in the past 2 weeks, No New Medical Problems and No Changes in Medication The History & Physical has been completed within 30 days and I have reviewed it.: No Section B Chief Complaint: cholecystitis Details of Present Illness: Abdominal pain in the RUQ associated with fatty food intolerance, gallstones and thickened gallbladder wall consistent with cholecystitis Relevant Family History (Specify if Yes): No Relevant Social History: None Present Medications: see Short Stay Collaborative assessment Medical History: Significant History (HFpEF, Seizure disorder) History of Previous Operations: No relevant previous surgery Allergies: Allergies Allergy/AdvReac Type Severity Reaction Status Date / Time No Known Allergies Allergy Verified 08/10/21 11:21 [No Known Allergies*] Review of Systems Sugical H&P ROS: Negative: Constitution, Cardiovascular, Respiratory, Neurological, Psychiatric, Hem-Onc, Allergic/Immunologic, Genitourinary, Musculoskeletal, Integumentary, Endocrine and Eyes/Ears/Nose/Throat and Yes, Specify: Gastrointestinal (abdominal pain) Exam Surgical H&P Exam: Normal: HEENT, Normal: Heart, Normal: Lungs, Normal: Extre mities, Normal: Abdomen, Normal: Skin and Normal: Neurological Plan Diagnosis/Plan: Unchanged I have reviewed the history and physical and performed a pertinent physical examination on my patient. No changes have occurred unless specified.
--- NOTE | 2021-11-26 10:57 | W.PM.OPN ---
Operative Note Operative Note Date of Service: 11/26/21 Narrative: Preoperative diagnosis: Chronic cholecystitis, cholelithiasis Postoperative diagnosis: Same Procedure: Laparoscopic cholecystectomy Surgeon: Heri Younger MD Bisque Brusher: MORIS Bush, YOLIS Miles Anesthesia: General endotracheal Indications for procedure: 61-year-old female patient presenting with complaints of abdominal pain in the right upper quadrant and epigastrium found to have gallstones in the gallbladder. Patient exam reveals some mild tenderness in the right upper quadrant suggestive biliary colic, chronic cholecystitis. She presents today for laparoscopic cholecystectomy. Operative findings: Distended gallbladder with multiple small gallstones within the gallbladder. Specimen: gallbladder Estimated blood loss:<1 ml Complications: none Procedure details: Patient was brought to the OR and placed in a supine position. After administering general anesthesia the patient's abdomen was prepped with ChloraPrep and draped in a sterile fashion. Local anesthesia consisting of 0.75% Sensorcaine without epinephrine was infiltrated in a periumbilical region. A 5 mm incision was made above the umbilicus in a transverse fashion. The Veress needle was then inserted while elevating abdominal cavity with towel clips. After positive drop test the abdomen was insufflated to a pressure of 15 mm of mercury. The Veress needle was then removed and a 5 mm trocar inserted. The camera was inserted in the abdomen explored. A 12 mm trocar was then placed in the epigastrium. Two 5 mm trocars placed in the right upper quadrant by the group fitness assistant department head. The patient was placed in reverse Trendelenburg positioning and rotated to the left. The gallbladder was grasped with the fundus and retracted cephalad by the group fitness assistant department head. The infundibulum was then grasped and retracted away from the liver bed, also by the group fitness assistant department head. The Dolphin dissected was then used by the surgeon to dissect the peritoneum off the infundibulum to reveal the junction with the cystic duct. Cystic artery was noted slightly medial and posterior to the cystic duct. After obtaining a critical view the cystic duct was doubly clipped and divided. The cystic artery was then doubly clipped and divided. The gallbladder was then dissected off the liver bed using electrocautery with an L hook. Hemostasis was assured all times using the electrocautery. When the gallbladder is completely dissected off the liver bed was placed in an Endo-Catch bag and brought out through the epigastric incision. The gallbladder was sent to pathology for further examination. The abdomen was then re-examined. The liver bed was irrigated and suctioned dry. No bleeding or bile leak could be identified. CO2 was then evacuated and all trocars removed. Fascia was closed at the epigastric incision using a [id number] 0 Polysorb suture. Skin was closed in all incisions using a subcuticular 4 0 Polysorb suture by both the surgeon and group fitness assistant department head. Sterile dressings consisting of Steri-Strips, 2 x 2 gauze, and Tegaderm were then applied. The patient tolerated the procedure well. Sponge instrument and needle counts reported as correct. The patient was transferred to PACU in stable condition.
[2021-11-26 11:08] VITALS: BP 168/81; PULSE 72; RESP 20; TEMP 36.9; O2SAT 97
[2021-11-26 11:13] VITALS: BP 159/77; PULSE 82; RESP 18; O2SAT 94
[2021-11-26] MEDS: fentaNYL citrate/PF 100 MCG/2 ML VIAL 50 MCG IVPUSH (11:13)
[2021-11-26 11:18] VITALS: BP 149/74; PULSE 68; RESP 14; O2SAT 92
[2021-11-26 11:23] VITALS: BP 142/74; PULSE 67; RESP 16; O2SAT 93
[2021-11-26 11:38] VITALS: BP 129/75; PULSE 68; RESP 16; TEMP 36.9; O2SAT 96
== END 2021-11-26 11:59 | disposition home or self-care (01) ==
PROVIDERS: Nurse Practitioner; PCP Internal Medicine; Visit Provider Surgery
PROC: 0FT44ZZ Resection of Gallbladder, Percutaneous Endoscopic Approach (ICD-10-PCS; CPT 47562; principal; 2021-11-26 08:40)
DX: K80.10 Calculus of gallbladder with chronic cholecystitis without obstruction (principal); K76.0 Fatty (change of) liver, not elsewhere classified; G40.209 Localization-related (focal) (partial) symptomatic epilepsy and epileptic syndromes with complex partial seizures, not intractable, without status epilepticus; G24.9 Dystonia, unspecified; I50.30 Unspecified diastolic (congestive) heart failure; Q21.1 Atrial septal defect; F41.8 Other specified anxiety disorders; J45.909 Unspecified asthma, uncomplicated; Z79.899 Other long term (current) drug therapy; Z79.82 Long term (current) use of aspirin; F17.210 Nicotine dependence, cigarettes, uncomplicated
CPT/HCPCS: 47562; 36415; 80048; 85027; 88304; 93005; J0131; J1100; J1885; J2250; J2405; J3010

== ENCOUNTER → 2021-12-03 09:18 | Outpatient (REF) | payer MEDICARE, MEDICAID, SELFPAY ==
--- NOTE | 2021-12-03 09:21 | CA_ITS ---
Transthoracic Echocardiogram Patient (Last, First, Middle): Kayleigh Grossman, Gender: Female Date of : 1960 Age: 61 Procedure Date: 12/03/2021 Procedure Type: Transthoracic Echocardiogram Location: OP Height: 165.1 cm Weight: 81.65 kg BSA: 1.89 m2 Heart Rate: bpm BP: 120 / 70 mmHg Safety Trainer: TO Referring MD: Saad Bernal MD Student Accounts Coordinator: Saad Bernal MD Symptoms: I50.30 - Unspecified diastolic (congestive) heart failure Study Quality: Fair ECG Rhythm: Sinus Conclusions: - 1. Normal LV systolic function with impaired relaxation filling pattern next 2. Normal cardiac valvular Doppler 3. Mildly dilated ascending aorta at 4.1 cm 4. Normal RV systolic pressure 5. No gross pericardial effusion Findings Left Ventricle Normal left ventricular size, thickness, and systolic function. The visually estimated ejection fraction is between 60-65%. Spectral Doppler is indicative of an impaired relaxation filling pattern. E/E prime ratio is between 8 and 15 consistent with indeterminate filling pressures. Right Ventricle Normal right ventricular cavity size and systolic function. Atria The left atrium is likely dilated. There is no evidence of interatrial shunt. The right atrium is normal in size. Aortic Valve Normal aortic valve structure and function. There is no aortic valve stenosis. There is no aortic valve regurgitation. Mitral Valve Normal mitral valve structure and function. There is trace mitral valve regurgitation. There is no mitral valve stenosis. Pulmonic Valve The pulmonic valve is likely normal. There is trace to mild pulmonic valve regurgitation. Tricuspid Valve Normal tricuspid valve structure. There is mild tricuspid valve regurgitation. The right ventricular systolic pressure is normal. The right ventricular systolic pressure is 33 mmHg. Normal right atrial pressure. There is no evidence of pulmonary hypertension. Great Vessels The pulmonary artery was not well visualized. There is mild dilatation of the ascending aorta measuring 4.10 cm. Venous The inferior vena cava is normal in size and collapses greater than 50% with inspiration. Pericardium/Pleural There is no evidence of pericardial effusion. Prior Study Comparison No significant change compared to prior study dated: 11/23/2020. Measurements 2D Linear Measurements IVSd: 1.08 0.6-0.9/0.6-1.0 cm LVIDd: 4.81 3.9-5.3/4.2-5.9 cm LVIDd Index: 2.54 2.4-3.2/2.2-3.1 cm/m2 LVIDs: 2.99 2.0-3.6 cm LVPWd: 1.09 0.7-1.1 cm LA Diam: 3.30 2.7-3.8/3.0-4.0 cm LAIDs Index: 1.75 1.5-2.3 cm/m2 LV Mass: 237.94 67-162/88-224 g LV Mass Index: 125.89 43-95/49-115 g/m2 LVOT Diam: 2.00 3.0+(-)1.3 cm 2D Systolic Function EF 4C: 69.80 >55% EF 2C: 63.90 >55% EF BiP: 66.00 >55% Mitral Valve MV Pk E: 0.55 MV PK A: 0.55 MV Decel Time: 276.00 E/A: 1.00 E'Lateral: 9.36 E'Medial: 4.79 E/E' Med: 11.40 E/E' Lat: 5.90 PHT: 81.00 MVA PHT: 2.72 Decel [place]: 1.99 Aortic Valve AoV Pk Rigoberto: 1.78 AoV Mn Rigoberto: 1.10 AoV VTI: 0.34 AoV Pk Grad: 13.00 Aov Mn Grad: 6.00 CAMILLA Cont.VTI: 2.47 LVOT LVOT Pk Rigoberto: 1.31 LVOT Mn Rigoberto: 0.85 LVOT VTI: 0.27 LVOT Pk Grad: 7.00 LVOT Mn Grad: 3.00 LVOT Diam: 2.00 LVOT Area: 3.14 Diastolic Function MV Pk E: 0.55 MV Pk A: 0.55 E/A: 1.00 E'Medial: 4.79 E/E' Med: 11.40 E' Laterial: 9.36 E/E' Lat: 5.90 Right Ventricle TAPSE (mm): 23.00 TVS' Rigoberto: 12.10 Tricuspid Valve TR Pk Rigoberto: 2.76 TR Pk Grad: 30.00 RA Press: 3.00 RVSP: 33.00 Great Vessels Aorta Sinus of Valsalva: 3.44 2.0-3.[address] [place]: 2.77 1.7-3.4 cm Ao Asc: 4.10 2.1-3.4 cm Updated in Other Vendor System with Status of Final Saad Bernal MD electronically signed on 12/03/2021 12:09:12 PM with status of Final
== END ==
LOC: HO.CARD 09:18
PROVIDERS: PCP Internal Medicine; Visit Provider Internal Medicine Cardiovascular Disease
DX: I50.30 Unspecified diastolic (congestive) heart failure (principal)
CPT/HCPCS: 93306

== ENCOUNTER → 2021-12-13 08:33 | Outpatient (BNVA) | payer MEDICARE, MEDICAID, SELFPAY | PROVIDERS: PCP Internal Medicine; Referring Provider Internal Medicine; Visit Provider Internal Medicine Cardiovascular Disease | DX: I50.30 Unspecified diastolic (congestive) heart failure (principal); I45.10 Unspecified right bundle-branch block | CPT/HCPCS: 99212 ==

== ENCOUNTER → 2022-02-11 10:14 | Outpatient (BNVA) | payer MEDICARE, MEDICAID, SELFPAY | PROVIDERS: PCP Internal Medicine; Visit Provider Hospitalist | DX: J44.9 Chronic obstructive pulmonary disease, unspecified (principal); F17.200 Nicotine dependence, unspecified, uncomplicated; R91.8 Other nonspecific abnormal finding of lung field; Z71.6 Tobacco abuse counseling | CPT/HCPCS: 99202 ==

== ENCOUNTER 2022-02-14 08:08 | Outpatient (REF) | payer MEDICARE, MEDICAID, SELFPAY | END 2022-02-14 08:09 | disposition home or self-care (01) | LOC: HO.LNP 08:08 | PROVIDERS: Visit Provider Hospitalist | DX: J21.9 Acute bronchiolitis, unspecified (principal) | CPT/HCPCS: 87116 ==

== ENCOUNTER 2022-03-05 15:16 | Outpatient (REF) | payer MEDICARE, MEDICAID, SELFPAY ==
--- NOTE | ~2022-03-05 | US_ITS ---
EXAMINATION: US VENOUS ULTRASOUND WITH DOPPLER LOWER EXTREMITY, RIGHT CLINICAL INFORMATION: Right lower extremity edema COMPARISON: None TECHNIQUE: Ultrasound of the deep veins is performed from the hip to the calf with compression sonography and color and pulse Doppler assessment. Spectral analysis with color-flow imaging is performed. FINDINGS: There is normal venous compression and respiratory variation and augmented flow. The visualized common femoral vein, superficial femoral vein, profunda femoral vein, popliteal vein, and the trifurcation region shows no evidence of deep venous thrombosis. There is no significant popliteal fossa cyst. If the patient's symptoms persist, followup ultrasound in 5 days 7 days might be of value to exclude proximal propagation from a non-visualized calf vein. US/US venous duplex LE RT IMPRESSION: No DVT demonstrated in the right lower extremity.
== END 2022-03-05 15:17 | disposition home or self-care (01) ==
LOC: HO.US 15:16
PROVIDERS: PCP Internal Medicine; Visit Provider Emergency Medicine
DX: R60.0 Localized edema (principal)
CPT/HCPCS: 93971

== ENCOUNTER 2022-08-23 07:59 | Outpatient (RCR) | payer MEDICARE, MEDICAID, SELFPAY | END 2022-09-13 13:45 | disposition home or self-care (01) | LOC: HO.WCC 07:59 | PROVIDERS: PCP Internal Medicine; Referring Provider Nurse Practitioner Family; Visit Provider Physician Assistant | DX: E11.622 Type 2 diabetes mellitus with other skin ulcer (principal); L97.822 Non-pressure chronic ulcer of other part of left lower leg with fat layer exposed; L03.116 Cellulitis of left lower limb; L20.84 Intrinsic (allergic) eczema; R60.0 Localized edema; E11.22 Type 2 diabetes mellitus with diabetic chronic kidney disease; I13.0 Hypertensive heart and chronic kidney disease with heart failure and stage 1 through stage 4 chronic kidney disease, or unspecified chronic kidney disease; I50.22 Chronic systolic (congestive) heart failure; N18.30 Chronic kidney disease, stage 3 unspecified; F17.210 Nicotine dependence, cigarettes, uncomplicated; F10.90 Alcohol use, unspecified, uncomplicated; Z79.2 Long term (current) use of antibiotics; Z79.899 Other long term (current) drug therapy | CPT/HCPCS: 11042; 11045; 99212 ==

== ENCOUNTER 2022-10-15 11:00 | Outpatient (RCR) | payer MEDICARE, MEDICAID, SELFPAY | END 2022-12-05 15:01 | disposition home or self-care (01) | LOC: HO.PT 11:00 | PROVIDERS: PCP Internal Medicine; Visit Provider Physician Assistant | DX: Z98.890 Other specified postprocedural states (principal) | CPT/HCPCS: 97110; 97112; 97162; 97530 ==

== ENCOUNTER 2022-12-16 08:20 | Outpatient (AMB) | payer MEDICARE, MEDICAID, SELFPAY ==
--- NOTE | 2022-12-16 08:22 | A.OFFVIS_ITS ---
Intake Vital Signs 12/16/22 08:23 Height 5 ft 4 in Weight 189 lb 2.506 oz BMI 32.5 BP 104/74 Blood Pressure Location Lt brachial Position Sitting Pulse 69 Pulse Source Monitor Intake Visit Reasons: 1 yr w/ ekg Intake Note: 1 year follow up w/ EKG. Glycerin Operator Required: No Accompanied by: Self / Same As Patient Allergies latex Allergy (Mild, Verified 12/16/22 08:24) Rash Medication List - Last Reconciled 12/16/22 by Saad Bernal MD albuterol sulfate 90 mcg/actuation 2 puffs inhalation Q4-6H PRN alprazolam 0.5 mg PO BID PRN aspirin 81 mg PO DAILY biotin 10,000 mcg PO DAILY calcium carbonate (Calcium) 600 mg PO DAILY cholecalciferol (vitamin D3) (Vitamin D3) 50 mcg PO DAILY deutetrabenazine (Austedo) 36 mg PO ONCE diphenhydramine HCl (Benadryl Allergy) 25 mg PO BEDTIME PRN empagliflozin (Jardiance) 10 mg PO DAILY escitalopram oxalate 20 mg PO DAILY jrllvrjfety-vzeodluia-jlvwpxdp 100-62.5-25 mcg (Trelegy Ellipta) 1 inh inhalation DAILY 30 days furosemide 20 mg PO DAILY gabapentin mg PO TID mesalamine ER 1.5 grams PO DAILY oxcarbazepine 300 mg PO BID spironolactone 25 mg PO DAILY umeclidinium-vilanterol 62.5-25 mcg/actuation (Anoro Ellipta) inhalation HPI HPI Comments History of Present Illness Details Kayleigh comes for follow-up. She has been doing well from cardiac perspective. In May she had a accidental fall and fractured ankle, status post surgery. She is currently undergoing rehab and walking and has some pain. However she denies any worsening shortness of breath. Denies orthopnea, PND, worsening leg edema. Takes all medication. She was started recently on Aldactone therapy. She has had no hospitalization for heart failure. [facility] Medical History (HFpEF) heart failure with preserved ejection fraction Anxiety and depression Asthma Bronchiolitis Complex partial seizure disorder COPD (chronic obstructive pulmonary disease) COVID-19 vaccine series started Dyskinesia Edema of both lower extremities Fatty liver History of seizure Low back pain PFO (patent foramen ovale) Pulmonary nodules Tobacco dependence Surgical History History of ankle surgery History of esophagogastroduodenoscopy (EGD) History of loop electrical excision procedure (LEEP) Hx of colonoscopy Family History Mother Pancreatic cancer Social History Alcohol intake: current Alcohol intake frequency: holidays/special occasions only Patient Tobacco Use Status: Current everyday Tobacco user Tobacco use type: Cigarette Cigarette Packs Per Day: 1 Cigarettes Per Day: 20.0 Years Smoked: 30 +/- Second Hand Smoke Exposure: Yes Substance Use Type: Marijuana 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al status: 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 Review of Systems Const Denies weakness ENT Denies dizziness Card Denies chest pain, Denies chest pain with activity, Denies syncope, Denies rapid heart rate, Denies pedal edema, Denies edema, Denies leg edema, Denies lightheadedness, Denies palpitations, Denies dyspnea, Denies dyspnea on exertion and Denies orthopnea Resp Denies cough, Denies dyspnea and Denies dyspnea on exertion GI Denies hematochezia and Denies change in stool character Musc Denies abnormal gait, Denies muscle cramps, Denies muscle weakness, Denies numbness, Denies radiating pain into limb and Denies tingling Neuro Denies abnormal gait, Denies dizziness, Denies syncope, Denies numbness, Denies tingling and Denies weakness Endo Denies palpitations Physical Exam Vital Signs: Last Vital Signs Pulse 69 12/16/22 08:23 BP 104/74 12/16/22 08:23 BMI result Body Mass Index 32.5 Const General: cooperative, comfortable, no acute distress, alert and awake Nutritional Appearance: obese Orientation/consciousness: patient oriented x3 Limitations: no limitations Neck Neck: Yes trachea midline, Yes supple and Yes no JVD Resp Effort & Inspection: normal respiratory effort Auscultation: clear to auscultation bilaterally Cardio Jugular venous distension: no JVD Palpation: normal PMI Rate: regular rate Rhythm: regular rhythm Heart sounds: S1 normal heart sound present, S2 normal heart sound present, no click, no gallops, no murmurs and no rubs GI Auscultation: normal bowel sounds Skin General skin exam: no rashes or lesions noted Neuro General: patient oriented x3 and no focal motor deficits Extrem General: Yes no clubbing, cyanosis or edema, Yes pedal edema, Yes venous stasis dermatitis and Yes other (Bilateral mild varicosities) Psych Appearance: grossly normal Office Procedures EKG Details: EKG shows normal sinus rhythm with right bundle-branch block at 69 beats per minute [id number], Complete Assessment & Plan Assessment & Plan (1) (HFpEF) heart failure with preserved ejection fraction: Code(s): I50.30 - Unspecified diastolic (congestive) heart failure Plan: Heart failure preserved ejection fraction. Clinically euvolemic and well comp ensated. Continue current therapy. Continue manage her COPD aggressively as well. Clinically plan to continue current diuretic regimen on a daily basis. Daily weight monitoring avoidance of salt loading was discussed. Continue neurohormonal modulation with Jardiance as well as Aldactone therapy. Semi annual renal function test should be pursued. Recommend to participate in regular physical activity. Smoking cessation was discussed. Will follow up in the clinic in 1 year's time after an echocardiogram. Thank you for allowing me to partake in the care Orders: Orders CA echo transthoracic complete 50 Weeks I50.30 - Unspecified diastolic (congestive) heart failure Medications: Refilled empagliflozin (Jardiance) 10 mg PO DAILY 90 tabs 3RF I50.30 - Unspecified lincoln stolic (congestive) heart failure Coding Level of Care Code Est Pt Level 4 (74501) Diagnoses (HFpEF) heart failure with preserved ejection fraction I50.30 CPT Codes EKG - CPT: 76017-[id number], Complete ([id number])
[2022-12-16 08:23] VITALS: BP 104/74; PULSE 69; BMI 32.5
== END 2022-12-16 08:40 | disposition home or self-care (01) ==
PROVIDERS: Visit Provider Internal Medicine Cardiovascular Disease
DX: I50.30 Unspecified diastolic (congestive) heart failure (principal)
CPT/HCPCS: 93010; 99214

== ENCOUNTER → 2022-12-16 08:20 | Outpatient (BNVA) | payer MEDICARE, MEDICAID, SELFPAY | PROVIDERS: Visit Provider Internal Medicine Cardiovascular Disease | DX: I50.30 Unspecified diastolic (congestive) heart failure (principal) | CPT/HCPCS: 93005; 99212 ==

== ENCOUNTER 2023-01-01 09:46 | Outpatient (AMB) | payer MEDICARE, MEDICAID, SELFPAY ==
[2023-01-01 09:58] VITALS: BP 126/70; PULSE 74; O2SAT 95; BMI 31.8
--- NOTE | 2023-01-01 09:58 | A.OFFVIS_ITS ---
Intake Vital Signs 01/01/23 09:58 Height 5 ft 4 in Weight 185 lb BMI 31.8 BP 126/70 Blood Pressure Location Lt brachial Position Sitting Pulse 74 Pulse Source Pulse Oximeter Pulse Oximetry (%) 95 Oxygen Delivery Method Room Air Intake Visit Reasons: asthma Long Goods Drier Required: No Allergies latex Allergy (Mild, Verified 01/01/23 10:00) Rash HPI HPI Comments History of Present Illness Details The patient is a 62 year woman with a known history of tobacco dependency in addition to COPD who was referred to us for evaluation of an abnormal CT scan of the chest. Apparently the patient has had pulmonary nodules now for many years. Ultimately she was placed on Anoro with good response. She has a rescue inhaler that she does not use. More recently in January 14 she did undergo a repeat CT scan of the chest at [facility]. I personally reviewed the CT scan myself with the patient. It appears that she does have evidence of tree-in-bud which in this case appears to be bronchiolitis. This involving the upper lung zones in addition to the right middle lobe. The right middle lobe appears to have some degree of atelectasis in addition to more extensive airspace disease. We talked about the differential. The patient understands that smoking related interstitial lung conditions is in the differential. In addition to smoldering infections. The patient is not expectorating significant amount of mucus. The patient denies any weight loss or night sweats. Denies any hemoptysis. No evidence of any concerning findings suggest a malignant process. It also appears that the treating budding or bronchiolitis was also present last year. At this point will try to maximize her respiratory therapy by adding an inhaled cortical steroid to minimize the bronchiolitis component. The patient also needs to work on her smoking cessation. She is motivated to quitting although she understands that she is going to have a hard time. We did talk about the Nicotrol inhaler and she is willing to try that. Initially she can alternate a regular cigarette with the Nicotrol inhaler and hopefully wean off completely from the cigarette smoke. The patient also will try to provide us with a sputum sample for AFB in culture to further assess for non tuberculosis mycobacterial infections which can manifest in this form. 01/01/2023 the patient is here for pulmonary follow-up visit. She is still smoking. She has had a hard time because her psychiatric medications were changed. She also has significant stresses in her home. She was not able to quit. I did send of the Nicotrol inhaler although I am not sure is going to be covered. I do believe will be a good option for her since she likes the habit of holding on to the cigarette. The patient also had a recent CT scan of the chest at [facility]. I do not have the results as of yet. I am going to be able to look at him later on. The patient has had pulmonary nodules and has a question of smoldering infection. We were able to send a sputum culture for AFB back last year and was negative for AFB which is reassuring although not 100%. The patient has been using the Trelegy inhaler and this has been more effective for her breathing. She does take it with good adherence. At this point the patient did fall she hurt her right wrist. She did not have any x-rays. I did put in for some x-rays she can have that looked at. Otherwise patient is to follow-up with her primary care doctor regarding that. [facility] Medical History (Updated 01/01/23 @ 12:27 by Jerry Choi MD) (HFpEF) heart failure with preserved ejection fraction Anxiety and depression Asthma Bronchiolitis Complex partial seizure disorder COPD (chronic obstructive pulmonary disease) COVID-19 vaccine series started Dyskinesia Edema of both lower extremities Fatty liver History of seizure Low back pain PFO (patent foramen ovale) Pulmonary nodules Tobacco dependence Wrist fracture, right Surgical History History of ankle surgery History of esophagogastroduodenoscopy (EGD) History of loop electrical excision procedure (LEEP) Hx of colonoscopy Family History Mother Pancreatic cancer Social History Alcohol intake: current Alcohol intake frequency: holidays/special occasions only Patient Tobacco Use Status: Current everyday Tobacco user Tobacco use type: Cigarette Cigarette Packs Per Day: 1 Cigarettes Per Day: 20.0 Years Smoked: 30 +/- Second Hand Smoke Exposure: Yes Substance Use Type: Marijuana 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al status: 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 Review of Systems Const Denies fever(s) and Denies weight loss Eyes Denies change in vision and Denies itchy eyes ENT Denies change in voice and Denies lip swelling Card Denies chest pain and Denies dyspnea Resp Denies chest congestion, Reports cough, Denies hemoptysis and Denies dyspnea GI Reports no additional complaints Musc Reports as per HPI, Reports arthralgias and Reports joint swelling Skin/Breast Denies rash Neuro Reports no additional complaints Psych Reports anxiety Lucius/Lymph Denies easy bleeding, Denies easy bruising and Denies lymphadenopathy Aller/Immun Denies itchy eyes and Denies lip swelling Physical Exam Vital Signs: Last Vital Signs Pulse 74 01/01/23 09:58 BP 126/70 01/01/23 09:58 Pulse Ox 95 01/01/23 09:58 Oxygen Delivery Method Room Air 01/01/23 09:58 BMI result Body Mass Index 31.8 Const General: comfortable HEENT Head: Yes normal to inspection Eyes General: appearance normal, both eyes and all related structures Neck Neck: Yes supple Chest Chest palpation & inspection: normal inspection of the chest Resp Effort & Inspection: normal respiratory effort Auscultation: no rales, no rhonchi, no wheezes and diminished lung sounds Cardio Rate: regular rate Rhythm: regular rhythm Heart sounds: S1 normal heart sound present and S2 normal heart sound present GI Auscultation: normal bowel sounds Skin General skin exam: no rashes or lesions noted Extrem General: Yes no clubbing, cyanosis or edema Right upper extremity: wrist Details: tenderness, swelling and warmth; no deformity Assessment & Plan Assessment & Plan (1) Bronchiolitis: Code(s): J21.9 - Acute bronchiolitis, unspecified (2) COPD (chronic obstructive pulmonary disease): Code(s): J44.9 - Chronic obstructive pulmonary disease, unspecified (3) Tobacco dependence: Code(s): F17.200 - Nicotine dependence, unspecified, uncomplicated (4) Cough: Code(s): R05 - Cough (5) Pulmonary nodules: Code(s): R91.8 - Other nonspecific abnormal finding of lung field Plan continue Trelegy MAYTE as needed Start nicotrol inhaler Sputum for AFB negative x 1 wrist Xray noted a scafoid fracture, will refer to Ortho F/U 8-12 months Orders: Orders XR wrist RT 2V Today W19.XXXA - Unspecified fall, initial encounter Medications: New nicotine (Nicotrol) 1 inh inhalation Q2-4H 30 days PRN 168 ea 0RF nicotine cravings Coding Level of Care Code Est Pt Level 4 (88165) Diagnoses Bronchiolitis J21.9 COPD (chronic obstructive pulmonary disease) J44.9 Tobacco dependence F17.200 Cough R05 Pulmonary nodules R91.8 Time Spent (min) 18
== END 2023-01-01 10:10 | disposition home or self-care (01) ==
PROVIDERS: PCP Internal Medicine; Visit Provider Hospitalist
DX: J44.9 Chronic obstructive pulmonary disease, unspecified (principal); F17.200 Nicotine dependence, unspecified, uncomplicated; R05.9 Cough, unspecified; R91.8 Other nonspecific abnormal finding of lung field
CPT/HCPCS: 99214

== ENCOUNTER 2023-01-01 09:46 | Outpatient (REF) | payer MEDICARE, MEDICAID, SELFPAY ==
--- NOTE | ~2023-01-01 | XR_ITS ---
EXAMINATION: XR WRIST, RIGHT CLINICAL INFORMATION: Fall 3 weeks ago with wrist pain COMPARISON: None available. TECHNIQUE: PA, lateral, and oblique views of the right wrist. FINDINGS: There is a transverse fracture of the waist of the right scaphoid bone. The fracture does not extend to the proximal or distal articular surface. There is a normal volar tilt of the distal radial articular surface. XR/XR wrist RT 2V IMPRESSION: Transverse fracture of the waist of the right scaphoid bone. Close follow-up to confirm healing is needed, as this patient is at risk for osteonecrosis of the proximal pole of the right scaphoid.
== END 2023-01-01 09:47 | disposition home or self-care (01) ==
LOC: HO.XRAY 09:46
PROVIDERS: PCP Internal Medicine; Visit Provider Hospitalist
DX: J21.9 Acute bronchiolitis, unspecified (principal); R91.8 Other nonspecific abnormal finding of lung field; J44.9 Chronic obstructive pulmonary disease, unspecified; R05.9 Cough, unspecified; F17.210 Nicotine dependence, cigarettes, uncomplicated
CPT/HCPCS: 73100; 99212

== ENCOUNTER 2023-01-08 05:03 | Outpatient (REF) | payer MEDICARE, MEDICAID, SELFPAY ==
--- NOTE | ~2023-01-08 | XR_ITS ---
EXAMINATION: XR WRIST, RIGHT CLINICAL INFORMATION: Right wrist pain. COMPARISON: Right wrist 01/01/2023. TECHNIQUE: 4 views of the right wrist. FINDINGS: Again seen is a transverse fracture through the scaphoid. No new fracture is seen. No definite healing is seen when compared to the study of one week ago. XR/XR wrist RT w scaphoid IMPRESSION: Scaphoid fracture. No definite interval healing is seen.
== END 2023-01-08 05:04 | disposition home or self-care (01) ==
LOC: HO.HOSX 05:03
PROVIDERS: Visit Provider Orthopaedic Surgery
DX: S62.001A Unspecified fracture of navicular [scaphoid] bone of right wrist, initial encounter for closed fracture (principal); W17.2XXA Fall into hole, initial encounter; Y93.9 Activity, unspecified; Y92.9 Unspecified place or not applicable; Y99.9 Unspecified external cause status
CPT/HCPCS: 73110

== ENCOUNTER 2023-01-08 10:34 | Outpatient (AMB) | payer MEDICARE, MEDICAID, SELFPAY ==
--- NOTE | 2023-01-08 10:49 | A.OFFVIS_ITS ---
Intake Vital Signs 01/08/23 11:09 Height 5 ft 4 in Weight 184 lb BMI 31.6 Intake Visit Reasons: FC- FX wrist RT scaphoid Intake Note: Kayleigh is a 62 yr old left hand dominant female who presents today for a new problem visit for evaluation of her right scaphoid fracture from approx the beginning of December. States she fell in a hole her dog had dug, injuring her hand/wrist. States she did not seek medical help at the time. States she was seen by her supervisor model making who ordered xrays of her hand. Currently states she has persistent aches and soreness. Reports she purchased a brace and had also been taking advil and tylenol. Patient mentioned she also has numbness that started after falling. Allergies latex Allergy (Mild, Verified 01/08/23 11:11) Rash HPI FC- FX wrist RT scaphoid HPI Details Kayleigh is a 62 year old right hand dominant woman who presents with a right scaphoid fracture, from tripping in a hole her dog had dug, DOI: ~3-4 weeks ago, around the beginning of December She says she did not initially seek medical attention following this. Her supervisor model making ordered a wrist X-ray on 01/01/23. She is a smoker and has Osteoporosis. She says she just received medication to help her stop smoking. She sees her supervisor model making for COPD and bronchiolitis She complains of a persistent aching pain and stiffness in her wrist. She is seen today wearing a brace she purchased herself OTC. She reports having anxiety and Tardive dyskinesia [facility] Medical History (Updated 01/08/23 @ 11:37 by Duc Jessica) (HFpEF) heart failure with preserved ejection fraction Anxiety and depression Asthma Bronchiolitis Complex partial seizure disorder COPD (chronic obstructive pulmonary disease) COVID-19 vaccine series started Dyskinesia Edema of both lower extremities Fatty liver History of seizure Low back pain PFO (patent foramen ovale) Pulmonary nodules Tobacco dependence Wrist fracture, right Surgical History History of ankle surgery History of esophagogastroduodenoscopy (EGD) History of loop electrical excision procedure (LEEP) Hx of colonoscopy Family History Mother Pancreatic cancer Social History Alcohol intake: current Alcohol intake frequency: holidays/special occasions only Patient Tobacco Use Status: Current everyday Tobacco user Tobacco use type: Cigarette Cigarette Packs Per Day: 1 Cigarettes Per Day: 20.0 Years Smoked: 30 +/- Second Hand Smoke Exposure: Yes Substance Use Type: Marijuana 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al status: 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 Review of Systems Const All systems reviewed & are unremarkable except as noted in HPI and below Physical Exam Vital Signs: BMI result Body Mass Index 31.6 Const General: cooperative, healthy appearing and no acute distress Orientation/consciousness: patient oriented x3 HEENT Head: Yes normocephalic and Yes atraumatic Eyes EOM: EOMs intact bilaterally Resp Effort & Inspection: normal respiratory effort and able to speak in complete sentences Cardio Jugular venous distension: no JVD Skin General skin exam: turgor normal Rashes: no rashes Neuro General: patient oriented x3 Extrem Other: Evaluation of Right Upper Extremity: The patient is alert, oriented, and in no acute distress Neuro: Median, Ulnar, Radial nerves motor and sensory intact and sensation is normal to the tips of all digits Vascular: Cap refill brisk ROM: She can make a fist and extend all her digits Skin: No lacerations or abrasions. General: No Erythema or evidence of infection. Mild snuffbox tenderness No scaphoid tubercle tenderness She is see today in [facility] velcro wrist splint she purchased OTC Minimal swelling No tenderness over the distal radius DRUJ or distal ulna. Radiographs: 3 views of the right wrist + a scaphoid view were taken and viewed by me today in clinic. They show a right scaphoid waste fracture, minimally displaced with satisfactory fracture alignment and no change in fracture alignment since 01/01/23. Psych Appearance: grossly normal Affect: normal affect Attitude: cooperative Office Procedures Fracture Care Details: Scaphoid fracture care 65693 Fracture Billing Code: Fracture Billing Code Assessment & Plan Assessment & Plan (1) Fracture of scaphoid of right wrist: Code(s): S62.001A - Unspecified fracture of navicular [scaphoid] bone of right wrist, initial encounter for closed fracture Plan Assessment & Plan: 1. Right scaphoid waste fracture, minimally displaced From a fall, DOI: early 12/2022 She is seen today wearing an OTC brace she purchased herself I educated her about this condition. She is a smoker and has a hx of COPD, anxiety, & Osteoporosis. She reports having recently seen her supervisor model making and just received medication to help her quit smoking I discussed the risks of smoking and its effects on fracture healing, she says she will do her best to stop smoking at this time He discussed operative and non operative treatment options length. She very much would like to try to avoid surgery. We will try treating this non operatively, but she does understand there is a risk that she may ultimately come to operative treatment of this fracture. She was placed in a short arm thumb spica cast I discussed activity modifications, she is to lift nothing heavier than a cellphone until fracture healing She is to avoid any heavy lifting activities, activities prone to falling, or placing her wrist under load She will do her best to stop smoking effective immediately She will follow up in 4 weeks, with X-rays 3V R wrist + scaphoid, OOP I explained that she will likely need at least 10-12 weeks until fracture healing, and possibly longer. Scribed for Candie Dudley MD by Duc Jessica, ophthalmic medical technician, on 01/08/23 at 11:35 AM, EST. Orders: Orders XR wrist RT w scaphoid Today M25.531 - Pain in right wrist Coding Level of Care Code New Pt Level 4 (63822) Diagnoses Fracture of scaphoid of right wrist S62.001A CPT Codes Fracture Care - Fracture Billing Code: Fracture Billing Code ([id number])
[2023-01-08 11:09] VITALS: BMI 31.6
== END 2023-01-08 12:12 | disposition home or self-care (01) ==
PROVIDERS: PCP Internal Medicine; Visit Provider Orthopaedic Surgery
DX: S62.001A Unspecified fracture of navicular [scaphoid] bone of right wrist, initial encounter for closed fracture (principal)
CPT/HCPCS: 25622; 99214

== ENCOUNTER 2023-02-04 09:10 | Outpatient (AMB) | payer MEDICARE, MEDICAID, SELFPAY ==
--- NOTE | 2023-02-04 09:21 | MHC.OFFVIS ---
Intake Vital Signs 02/04/23 09:23 Height 5 ft 4 in Weight 184 lb BMI 31.6 Intake Visit Reasons: ov-FX wrist RT scaphoid Intake Note: Kayleigh 62 yr old female presents today for her follow up visit for her Right scaphoid waste fracture, minimally displaced, from a fall, DOI: early 12/2022. Cast removed and Xrays updated in office. States she has soreness since cast was removed. Allergies latex Allergy (Mild, Verified 02/04/23 09:26) Rash HPI ov-FX wrist RT scaphoid HPI Details The patient is a 62-year-old jopai-boxn-ewxwuiix woman with COPD. She has a right nondisplaced scaphoid waist fracture from the beginning of December 2022 which she sustained in a fall after stepping into a hole. This was 1st diagnosed with us on 01/08/2023. She also has COPD and is a 1 [id number]-umn-znn smoker. She is being treated non operatively and was placed in a short-arm thumb spica cast as she very much would like to avoid surgery. I counseled her at last visit about the importance of smoking cessation. However she feels very stressed out about events in her life and is still a 1 pack per day smoker. She has tardive dyskinesia, which she says is improving since her medications were changed. She is pleased about that. [facility] Medical History (Updated 01/08/23 @ 11:37 by Duc Jessica) Wrist fracture, right Pulmonary nodules Tobacco dependence COPD (chronic obstructive pulmonary disease) Bronchiolitis Dyskinesia Complex partial seizure disorder History of seizure (HFpEF) heart failure with preserved ejection fraction Edema of both lower extremities PFO (patent foramen ovale) Anxiety and depression Low back pain Fatty liver Asthma COVID-19 vaccine series started Surgical History History of ankle surgery History of loop electrical excision procedure (LEEP) History of esophagogastroduodenoscopy (EGD) Hx of colonoscopy Family History Mother Pancreatic cancer Social History (Reviewed 02/04/23 @ 09:26 by Fariha Galvez [facility]) Alcohol intake: current Alcohol intake frequency: holidays/special occasions only Patient Tobacco Use Status: Current everyday Tobacco user Tobacco use type: Cigarette Cigarette Packs Per Day: 1 Cigarettes Per Day: 20.0 Years Smoked: 30 +/- Second Hand Smoke Exposure: Yes Substance Use Type: Marijuana 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al status: 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 Sensation was intact to all digits. She can make a fist and extend all of her digits. Her skin is in good condition, though her cast had gotten wet. She is not particularly tender over the scaphoid tubercle, proximally over the scaphoid or in the snuffbox. Radiographs three views of the patient's right wrist plus a scaphoid view were reviewed by me today in clinic. These are new radiographs. They still show evidence of a minimally displaced scaphoid waist fracture. Office Procedures Fracture Care Details: Fracture care [id number] if not already done. Fracture Billing Code: Fracture Billing Code Assessment & Plan Assessment & Plan (1) Fracture of scaphoid of right wrist: Code(s): S62.001A - Unspecified fracture of navicular [scaphoid] bone of right wrist, initial encounter for closed fracture Plan Assessment & Plan: 1. Right scaphoid waste fracture, minimally displaced From a fall, DOI: early 12/2022 For seen in our office on 01/08/2023 and placed in a short-arm cast at that time. I educated her about this condition. She is a smoker and has a hx of COPD, anxiety, & Osteoporosis. She is very discouraged and stressed out. She says she is still smoking a pack a day. I discussed the risks of smoking and its effects on fracture healing, she says she will do her best to stop smoking at this time He discussed operative and non operative treatment options length. She very much would like to try to avoid surgery. We will try treating this non operatively, but she does understand there is a risk that she may ultimately come to operative treatment of this fracture. She was placed in a short arm cast I discussed activity modifications, she is to lift nothing heavier than a cellphone until fracture healing She is to avoid any heavy lifting activities, activities prone to falling, or placing her wrist under load She will do her best to stop smoking effective immediately She will follow up in 4 weeks, with X-rays 3V R wrist + scaphoid, OOP I explained that she will likely need at least 10-12 weeks until fracture healing, and possibly longer. Again I also explained this ultimately may not go on to heal with her active smoking. Screw fixation would be helpful. Orders: Orders XR wrist RT w scaphoid Today M25.531 - Pain in right wrist Coding Level of Care Code Global (39315) Diagnoses Fracture of scaphoid of right wrist S62.001A CPT Codes Fracture Care - Fracture Billing Code: Fracture Billing Code ([id number])
[2023-02-04 09:23] VITALS: BMI 31.6
== END 2023-02-04 10:39 | disposition home or self-care (01) ==
PROVIDERS: PCP Internal Medicine; Visit Provider Orthopaedic Surgery
DX: S62.001A Unspecified fracture of navicular [scaphoid] bone of right wrist, initial encounter for closed fracture (principal)
CPT/HCPCS: 99024

== ENCOUNTER 2023-02-04 11:15 | Outpatient (REF) | payer MEDICARE, MEDICAID, SELFPAY ==
--- NOTE | ~2023-02-04 | XR_ITS ---
EXAMINATION: XR WRIST, RIGHT CLINICAL INFORMATION: Right wrist pain. COMPARISON: Right wrist 01/08/2023, 01/01/2023. TECHNIQUE: 4 views of the right wrist. FINDINGS: Redemonstration of a transverse fracture through the scaphoid, similar in appearance with mild sclerosis along the fracture line. Moderate degenerative changes first carpometacarpal joint with joint space narrowing and hypertrophic change. XR/XR wrist RT w scaphoid IMPRESSION: Healing transverse fracture of the scaphoid.
== END 2023-02-04 11:16 | disposition home or self-care (01) ==
LOC: HO.HOSX 11:15
PROVIDERS: Visit Provider Orthopaedic Surgery
DX: S62.001D Unspecified fracture of navicular [scaphoid] bone of right wrist, subsequent encounter for fracture with routine healing (principal); M25.531 Pain in right wrist; J44.9 Chronic obstructive pulmonary disease, unspecified; F17.210 Nicotine dependence, cigarettes, uncomplicated; Z71.6 Tobacco abuse counseling; X58.XXXD Exposure to other specified factors, subsequent encounter
CPT/HCPCS: 73110

== ENCOUNTER 2023-03-12 12:51 | Outpatient (REF) | payer MEDICARE, MEDICAID, SELFPAY ==
--- NOTE | ~2023-03-12 | XR_ITS ---
EXAMINATION: XR wrist RT w scaphoid CLINICAL INFORMATION: Reason for Exam M25.531 - Pain in right wrist COMPARISON: Wrist radiographs 02/04/2023 TECHNIQUE: Four views of the wrist FINDINGS: Redemonstration of a mildly displaced fracture through the waist of the scaphoid without definite bridging bony callus formation. Joint spaces are maintained without significant degenerative change. No soft tissue abnormality. XR/XR wrist RT w scaphoid IMPRESSION: Redemonstration of a mildly displaced fracture through the waist of the scaphoid without definite bridging bony callus formation.
== END 2023-03-12 12:52 | disposition home or self-care (01) ==
LOC: HO.HOSX 12:51
PROVIDERS: Visit Provider Orthopaedic Surgery
DX: S62.001D Unspecified fracture of navicular [scaphoid] bone of right wrist, subsequent encounter for fracture with routine healing (principal); M25.531 Pain in right wrist; X58.XXXD Exposure to other specified factors, subsequent encounter
CPT/HCPCS: 73110

== ENCOUNTER 2023-03-12 14:39 | Outpatient (AMB) | payer MEDICARE, MEDICAID, SELFPAY ==
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
[2023-03-12 14:52] VITALS: BMI 31.6
== END 2023-03-12 15:38 | disposition home or self-care (01) ==
PROVIDERS: PCP Internal Medicine; Visit Provider Orthopaedic Surgery
DX: S62.001A Unspecified fracture of navicular [scaphoid] bone of right wrist, initial encounter for closed fracture (principal)
CPT/HCPCS: 99024

== ENCOUNTER 2023-06-24 10:08 | Outpatient (AMB) | payer MEDICARE, MEDICAID, SELFPAY ==
--- NOTE | 2023-06-24 10:11 | MHC.OFFVIS ---
Intake Vital Signs 06/24/23 10:13 Height 5 ft 4 in Weight 185 lb BMI 31.8 Pulse 84 Pulse Source Pulse Oximeter Pulse Oximetry (%) 93 Oxygen Delivery Method Room Air Intake Visit Reasons: asthma Operator Supply Required: No Allergies latex Allergy (Mild, Verified 06/24/23 10:14) Rash HPI HPI Comments History of Present Illness Details The patient is a 63 year woman with a known history of tobacco dependency in addition to COPD who was referred to us for evaluation of an abnormal CT scan of the chest. Apparently the patient has had pulmonary nodules now for many years. Ultimately she was placed on Anoro with good response. She has a rescue inhaler that she does not use. More recently in January 14 she did undergo a repeat CT scan of the chest at [facility]. I personally reviewed the CT scan myself with the patient. It appears that she does have evidence of tree-in-bud which in this case appears to be bronchiolitis. This involving the upper lung zones in addition to the right middle lobe. The right middle lobe appears to have some degree of atelectasis in addition to more extensive airspace disease. We talked about the differential. The patient understands that smoking related interstitial lung conditions is in the differential. In addition to smoldering infections. The patient is not expectorating significant amount of mucus. The patient denies any weight loss or night sweats. Denies any hemoptysis. No evidence of any concerning findings suggest a malignant process. It also appears that the treating budding or bronchiolitis was also present last year. At this point will try to maximize her respiratory therapy by adding an inhaled cortical steroid to minimize the bronchiolitis component. The patient also needs to work on her smoking cessation. She is motivated to quitting although she understands that she is going to have a hard time. We did talk about the Nicotrol inhaler and she is willing to try that. Initially she can alternate a regular cigarette with the Nicotrol inhaler and hopefully wean off completely from the cigarette smoke. The patient also will try to provide us with a sputum sample for AFB in culture to further assess for non tuberculosis mycobacterial infections which can manifest in this form. 01/01/2023 the patient is here for pulmonary follow-up visit. She is still smoking. She has had a hard time because her psychiatric medications were changed. She also has significant stresses in her home. She was not able to quit. I did send of the Nicotrol inhaler although I am not sure is going to be covered. I do believe will be a good option for her since she likes the habit of holding on to the cigarette. The patient also had a recent CT scan of the chest at [facility]. I do not have the results as of yet. I am going to be able to look at him later on. The patient has had pulmonary nodules and has a question of smoldering infection. We were able to send a sputum culture for AFB back last year and was negative for AFB which is reassuring although not 100%. The patient has been using the Trelegy inhaler and this has been more effective for her breathing. She does take it with good adherence. At this point the patient did fall she hurt her right wrist. She did not have any x-rays. I did put in for some x-rays she can have that looked at. Otherwise patient is to follow-up with her primary care doctor regarding that. 06/24/2023 the patient is here for a pulmonary follow-up visit. The patient has been struggling with smoking. She still enjoying the smoking. She gets very anxious when she stops smoking. She did try the Nicotrol inhaler but that was not helpful. She is tried multiple prescription medications for smoking cessation without any benefit. I did provide her with a pamphlet where she can call and seek further smoking cessation counseling through a [facility] program. She also recently was diagnosed with tardive dyskinesia and she is struggling with the diagnosis. The patient did have a CT scan done at [facility] which we personally reviewed. The patient does have evidence of numerous micronodular densities in distribution consistent with respiratory bronchiolitis. Likely respiratory bronchiolitis interstitial lung disease which is interstitial lung disease related to her smoking. The patient understands that if this is capped untreated by her continues smoking then she can develop inflammation of the lungs and potentially lung fibrosis. Will continue to evolve monitor the evolution of this process. She is participating in the screening CT scans at [facility]. The patient is responding well to Trelegy inhaler. She does use it once a day. She also has a rescue inhaler. She does have a cough productive in nature typically in the morning consistent with her smoker's cough. [facility] Medical History (Updated 02/06/24 @ 12:27 by Jerry Choi MD) Wrist fracture, right Pulmonary nodules Tobacco dependence COPD (chronic obstructive pulmonary disease) Bronchiolitis Dyskinesia Complex partial seizure disorder History of seizure (HFpEF) heart failure with preserved ejection fraction Edema of both lower extremities PFO (patent foramen ovale) Anxiety and depression Low back pain Fatty liver Asthma COVID-19 vaccine series started Surgical History History of ankle surgery History of loop electrical excision procedure (LEEP) History of esophagogastroduodenoscopy (EGD) Hx of colonoscopy Family History Mother Pancreatic cancer Social History Alcohol intake: current Alcohol intake frequency: holidays/special occasions only Comment: hematoma mid chest & broken collar bone Patient Tobacco Use Status: Current everyday Tobacco user Tobacco use type: Cigarette Cigarette Packs Per Day: 1 Cigarettes Per Day: 20.0 Years Smoked: 30 +/- Second Hand Smoke Exposure: Yes Substance Use Type: Marijuana 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al status: 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 Review of Systems Const Denies fever(s) and Denies weight loss Eyes Denies change in vision and Denies itchy eyes ENT Denies change in voice and Denies lip swelling Card Denies chest pain and Denies dyspnea Resp Reports chest congestion, Reports cough, Denies hemoptysis and Denies dyspnea GI Reports no additional complaints Musc Reports as per HPI, Reports abnormal gait, Reports arthralgias and Reports joint swelling Skin/Breast Denies rash Neuro Reports no additional complaints and Reports abnormal gait Psych Reports anxiety Lucius/Lymph Denies easy bleeding, Denies easy bruising and Denies lymphadenopathy Aller/Immun Denies itchy eyes and Denies lip swelling Physical Exam Vital Signs: Last Vital Signs Pulse 84 06/24/23 10:13 Pulse Ox 93 06/24/23 10:13 Oxygen Delivery Method Room Air 06/24/23 10:13 BMI result Body Mass Index 31.8 Const General: comfortable HEENT Head: Yes normal to inspection Eyes General: appearance normal, both eyes and all related structures Neck Neck: Yes supple Chest Chest palpation & inspection: normal inspection of the chest Resp Effort & Inspection: normal respiratory effort Auscultation: no rales, no rhonchi, no wheezes and diminished lung sounds Cardio Rate: regular rate Rhythm: regular rhythm Heart sounds: S1 normal heart sound present and S2 normal heart sound present GI Auscultation: normal bowel sounds Skin General skin exam: no rashes or lesions noted Extrem General: Yes no clubbing, cyanosis or edema Right upper extremity: wrist Details: tenderness, swelling and warmth; no deformity Assessment & Plan Assessment & Plan (1) Bronchiolitis: Comment: RB ILD related to smoking Code(s): J21.9 - Acute bronchiolitis, unspecified (2) COPD (chronic obstructive pulmonary disease): Code(s): J44.9 - Chronic obstructive pulmonary disease, unspecified Qualifiers: COPD type: chronic bronchitis Chronic bronchitis type: mixed simple and mucopurulent Qualified Code(s): J41.8 - Mixed simple and mucopurulent chronic bronchitis (3) Tobacco dependence: Code(s): F17.200 - Nicotine dependence, unspecified, uncomplicated (4) Cough: Code(s): R05 - Cough Qualifiers: Cough type: chronic Qualified Code(s): R05.3 - Chronic cough (5) Pulmonary nodules: Code(s): R91.8 - Other nonspecific abnormal finding of lung field Plan continue Trelegy MAYTE as needed stopped nicotrol inhaler infotmation provided for smoking cessation program CT chest 12/2023 as per [facility] F/U 8-10 months Coding Level of Care Code Est Pt Level 4 (76015) Diagnoses Bronchiolitis J21.9 Mixed simple and mucopurulent chronic bronchitis J41.8 COPD type: chronic bronchitis Chronic bronchitis type: mixed simple and mucopurulent Tobacco dependence F17.200 Chronic cough R05.3 Cough type: chronic Pulmonary nodules R91.8 Time Spent (min) 18
[2023-06-24 10:13] VITALS: PULSE 84; O2SAT 93; BMI 31.8
== END 2023-06-24 10:52 | disposition home or self-care (01) ==
PROVIDERS: PCP Internal Medicine; Visit Provider Hospitalist
DX: J21.9 Acute bronchiolitis, unspecified (principal); J41.8 Mixed simple and mucopurulent chronic bronchitis; F17.200 Nicotine dependence, unspecified, uncomplicated; R05.3 Chronic cough; R91.8 Other nonspecific abnormal finding of lung field
CPT/HCPCS: 99214

== ENCOUNTER → 2023-06-24 10:08 | Outpatient (BNVA) | payer MEDICARE, MEDICAID, SELFPAY | PROVIDERS: PCP Internal Medicine; Visit Provider Hospitalist | DX: J21.9 Acute bronchiolitis, unspecified (principal); J41.8 Mixed simple and mucopurulent chronic bronchitis; R91.8 Other nonspecific abnormal finding of lung field; R05.3 Chronic cough; F17.210 Nicotine dependence, cigarettes, uncomplicated | CPT/HCPCS: 99212 ==

== ENCOUNTER 2023-07-07 09:26 | Outpatient (AMB) | payer MEDICARE, MEDICAID, SELFPAY ==
--- NOTE | 2023-07-07 10:43 | AM.OFFWIN_ITS ---
Intake Vital Signs 07/07/23 11:00 Height 5 ft 4 in Weight 177 lb BMI 30.4 BP 130/86 Blood Pressure Location Lt brachial Position Sitting Pulse 71 Pulse Source Pulse Oximeter Temp 97.4 F Temp Source Temporal Artery Scan Pulse Oximetry (%) 96 Oxygen Delivery Method Room Air Intake Visit Reasons: EP ?Bladder Infection Intake Note: pt is here today for bladder infection started 2 weeks ago Patient Tobacco Use Status: Current everyday Tobacco user Allergies latex Allergy (Mild, Verified 07/07/23 11:03) Rash Do you need a note to return to daycare/school/sports/work: No HPI HPI Comments History of Present Illness Details Patient presents to the walk-in today for sick visit Complaining of 2 weeks of suprapubic abdominal pain and urgency. History of UTI and states this feels same. She also reports that she had been taking amoxicillin for the last 3 weeks for dental work. She just completed the amoxicillin. She reports 2 weeks of vaginal itching consistent with previous yeast infections. She has been using [id number] vaginal suppositories and creams without improvement of her symptoms. She reports that she takes diuretics and pees frequently therefore she is losing the vaginal suppositories before they can be effective. She denies fevers, chills, body aches. Denies vaginal bleeding or hematuria. [facility] Medical History (Updated 07/07/23 @ 11:34 by Tena Mckeon APRN, FELT WASHING MACHINE TENDER) Wrist fracture, right Pulmonary nodules Tobacco dependence COPD (chronic obstructive pulmonary disease) Bronchiolitis Dyskinesia Complex partial seizure disorder History of seizure (HFpEF) heart failure with preserved ejection fraction Edema of both lower extremities PFO (patent foramen ovale) Anxiety and depression Low back pain Fatty liver Asthma COVID-19 vaccine series started Surgical History History of ankle surgery History of loop electrical excision procedure (LEEP) History of esophagogastroduodenoscopy (EGD) Hx of colonoscopy Family History Mother Pancreatic cancer Social History Alcohol intake: current Alcohol intake frequency: holidays/special occasions only Comment: hematoma mid chest & broken collar bone Patient Tobacco Use Status: Current everyday Tobacco user Tobacco use type: Cigarette Cigarette Packs Per Day: 1 Cigarettes Per Day: 20.0 Years Smoked: 30 +/- Second Hand Smoke Exposure: Yes Substance Use Type: Marijuana 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al status: 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 Answers questions appropriately. Fully engaged in examination. Skin: warm, dry, intact HEENT: Normocephalic. Hearing intact. Cardiac: External chest normal in appearance. Respiratory: No cough, audible wheezing or stridor. Abdomen: without gross distension. Soft, nontender in all quadrants MS: No obvious swelling or deformities. No CVA tenderness Neurological: Oriented to person, place, time and situation. Thought process intact. Psychiatric: Appropriate mood and affect. Good judgment and insight. Patient declines vaginal exam Results AMB Urinalysis, Automated UA Leukoctes 15 Jerome/uL Last Edit by Letha Cartagena CMA on 07/07/23 10:44 UA Nitrite Positive Last Edit by Letha Cartagena CMA on 07/07/23 10:44 UA Urobilinogen 0.2 mg/dL Last Edit by Letha Cartagena CMA on 07/07/23 10:44 UA Protein 30 mg/dL Last Edit by Letha Cartagena CMA on 07/07/23 10:44 UA pH 6.0 Last Edit by Letha Cartagena CMA on 07/07/23 10:44 UA Blood 10 Jaydon/uL Last Edit by Letha Cartagena CMA on 07/07/23 10:44 UA Specific [place] 1.020 Last Edit by Letha Cartagena CMA on 07/07/23 10:44 UA Ketone Negative Last Edit by Letha Cartagena CMA on 07/07/23 10:44 UA Bilirubin 0 mg/dL Last Edit by Letha Cartagena CMA on 07/07/23 10:44 UA Glucose 500 mg/dL Last Edit by Letha Cartagena CMA on 07/07/23 10:44 Results Reviewed Results Reviewed: Laboratory Last Values Urine pH (Auto) 6.0 07/07/23 10:43 Specific [place] (Auto) 1.020 07/07/23 10:43 Urine Protein (Auto) 30 mg/dL 07/07/23 10:43 Glucose (UA)(Auto) 500 mg/dL 07/07/23 10:43 Urine Ketones (Auto) Negative 07/07/23 10:43 Urine Blood (Auto) 10 [place]/uL 07/07/23 10:43 Urine Nitrite (Auto) Positive 07/07/23 10:43 Urine Bilirubin (Auto) 0 mg/dL 07/07/23 10:43 Urine Urobilinogen (Auto) 0.2 mg/dL 07/07/23 10:43 Leukocyte Esterase (Auto) 15 Jerome/uL 07/07/23 10:43 Assessment & Plan Assessment & Plan (1) UTI (urinary tract infection): Code(s): N39.0 - Urinary tract infection, site not specified Plan Patient presents to the walk-in for complaints of UTI symptoms and yeast infection, no signs of systemic illness. UA reviewed, consistent with UTI. Urine sent for culture and sensitivity. Keflex 500 mg p.o. b.i.d. x7 days Fluconazole 150 mg Q 3 days x2 doses. All questions and concerns are answered, patient agrees with plan. Follow up with PCP or return here for any new or worsening symptoms Orders: Orders AMB Urinalysis Automated Today Z13.9 - Encounter for screening, unspecified UA CC w/rflx Micro + Cult Today N39.0 - Urinary tract infection, site not specified Medications: New phenazopyridine (Pyridium) 100 mg PO TID PRN 20 tabs 0RF pain cephalexin 500 mg PO BID 14 caps 0RF fluconazole 150 mg PO Q3D 2 tabs 0RF 2 doses Coding Level of Care Code Est Pt Level 3 (93858) Diagnoses UTI (urinary tract infection) N39.0
[2023-07-07 11:00] VITALS: BP 130/86; PULSE 71; TEMP 36.3; O2SAT 96; BMI 30.4
== END 2023-07-07 12:19 | disposition home or self-care (01) ==
PROVIDERS: PCP Internal Medicine; Visit Provider Registered Nurse Emergency
DX: N39.0 Urinary tract infection, site not specified (principal)
CPT/HCPCS: 81003; 99213

== ENCOUNTER 2023-07-07 14:05 | Outpatient (REF) | payer MEDICARE, MEDICAID, SELFPAY ==
[2023-07-07 14:15] LABS: Appearance Urine Cloudy; Color Urine Yellow; Glucose Urine UA 500 mg/dL (Negative); Leukocyte Esterase Urine Small (1+) (Negative); Nitrite Urine Positive (Negative); UMIC TRIGGER UACC YES; Urine Blood Trace (Negative); Urine Ketones Negative (Negative); Urine Protein 30 (1+) mg/dL (Neg-Trace)
[2023-07-07 14:22] LABS: Bacteria Urine 4+ (None Seen); Hyaline Casts Urine 0-2 /LPF (0-2); UACC Culture Trigger YES; WBC Urine >50 /HPF (0-5)
== END 2023-07-07 14:06 | disposition home or self-care (01) ==
LOC: HO.LNP 14:05
PROVIDERS: Visit Provider Registered Nurse Emergency
DX: N39.0 Urinary tract infection, site not specified (principal)
CPT/HCPCS: 81001; 87086; 87088; 87186

== ENCOUNTER 2023-07-24 08:53 | Outpatient (AMB) | payer MEDICARE, MEDICAID, SELFPAY ==
--- NOTE | 2023-07-24 08:54 | AM.OFFWIN_ITS ---
Intake Vital Signs 07/24/23 08:55 Height 5 ft 4 in Weight 183 lb BMI 31.4 BP 118/72 Blood Pressure Location Rt brachial Position Sitting Pulse 73 Pulse Source Pulse Oximeter Temp 98.4 F Temp Source Oral Pulse Oximetry (%) 95 Oxygen Delivery Method Room Air Intake Visit Reasons: EST/left foot/ankle swelling (lobby) Intake Note: Pt is here c/o left foot discomfort. Pt states a chair fell on her three days ago which caused her to trip and fall. Patient Tobacco Use Status: Current everyday Tobacco user Allergies latex Allergy (Mild, Verified 07/24/23 08:56) Rash Do you need a note to return to daycare/school/sports/work: No HPI HPI Comments History of Present Illness Details 63 y/o female patient who presents to [facility] clinic with c/o left lower extremity swelling and pain-full. The swelling started Friday, she had a wooden chair fell on her foot Friday. She noticed the swelling then and believes it might be getting worse. Denies SOB, CP. Rates the pain at 9/10 on pain scale. Pt with h/o Heart Failure and currently managed by Cardiology. She is also takin g Furosemide daily. [facility] Medical History (Updated 07/07/23 @ 11:34 by Tena Mckeon APRN, FRONT END DEVELOPER) Wrist fracture, right Pulmonary nodules Tobacco dependence COPD (chronic obstructive pulmonary disease) Bronchiolitis Dyskinesia Complex partial seizure disorder History of seizure (HFpEF) heart failure with preserved ejection fraction Edema of both lower extremities PFO (patent foramen ovale) Anxiety and depression Low back pain Fatty liver Asthma COVID-19 vaccine series started Surgical History History of ankle surgery History of loop electrical excision procedure (LEEP) History of esophagogastroduodenoscopy (EGD) Hx of colonoscopy Family History Mother Pancreatic cancer Social History Alcohol intake: current Alcohol intake frequency: holidays/special occasions only Comment: hematoma mid chest & broken collar bone Patient Tobacco Use Status: Current everyday Tobacco user Tobacco use type: Cigarette Cigarette Packs Per Day: 1 Cigarettes Per Day: 20.0 Years Smoked: 30 +/- Second Hand Smoke Exposure: Yes Substance Use Type: Marijuana 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al status: 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 Review of Systems Const All systems reviewed & are unremarkable except as noted in HPI and below Physical Exam Vital Signs: Last Vital Signs Temp 98.4 F 07/24/23 08:55 Pulse 73 07/24/23 08:55 BP 118/72 07/24/23 08:55 Pulse Ox 95 07/24/23 08:55 Oxygen Delivery Method Room Air 07/24/23 08:55 BMI result Body Mass Index 31.4 Const Orientation/consciousness: patient oriented x3 Cardio Rate: regular rate Rhythm: regular rhythm Neuro General: patient oriented x3 and gait normal Extrem Left lower extremity: lower leg Details: erythema, tenderness, pitting edema Details: 3+ and warmth and ankle (ROM limited with pain) Details: tenderness, swelling and pitting edema Details: pitting and 3+ Psych Speech and movement: Clear speech present Attitude: cooperative Assessment & Plan Assessment & Plan (1) Peripheral edema: Code(s): R60.0 - Localized edema Plan: - Continue on Lasix - Elevate (2) Left leg pain: Code(s): M79.605 - Pain in left leg Plan: - Clutches - wrapped on Dago bandage - If Fx present, will place STAT referral to Orthopedics. Orders: Orders XR foot LT 2V Today M79.605 - Pain in left leg XR ankle LT 2V Today M79.672 - Pain in left foot Coding Level of Care Code Est Pt Level 3 (29803) Diagnoses Peripheral edema R60.0 Left leg pain M79.605 Time Spent (min) 15
[2023-07-24 08:55] VITALS: BP 118/72; PULSE 73; TEMP 36.9; O2SAT 95; BMI 31.4
== END 2023-07-24 09:53 | disposition home or self-care (01) ==
PROVIDERS: PCP Internal Medicine; Visit Provider Nurse Practitioner Family
DX: R60.0 Localized edema (principal); M79.605 Pain in left leg
CPT/HCPCS: 99213

== ENCOUNTER 2023-07-24 09:12 | Outpatient (REF) | payer MEDICARE, MEDICAID, SELFPAY ==
--- NOTE | ~2023-07-24 | XR_ITS ---
EXAMINATION: XR LEFT ANKLE XR LEFT FOOT CLINICAL INFORMATION: Left ankle and left foot pain. History of trauma. COMPARISON: None. TECHNIQUE: AP and oblique views of the left ankle were obtained. AP, lateral and oblique views of the left foot were obtained. FINDINGS: There is a displaced impacted likely comminuted fracture involving the midshaft of the fifth metatarsal. There is 8 mm displacement at the fracture site and 5 mm overlap of fracture fragments. No intra-articular extension or dislocation. There is surrounding soft tissue swelling. Ankle mortise is maintained. Talar dome is intact. No ankle joint effusion. Diffuse subcutaneous edema of the lower leg and ankle. XR/XR foot LT 2V IMPRESSION: Displaced impacted fracture involving mid shaft of the fifth metatarsal.
--- NOTE | ~2023-07-24 | XR_ITS ---
EXAMINATION: XR LEFT ANKLE XR LEFT FOOT CLINICAL INFORMATION: Left ankle and left foot pain. History of trauma. COMPARISON: None. TECHNIQUE: AP and oblique views of the left ankle were obtained. AP, lateral and oblique views of the left foot were obtained. FINDINGS: There is a displaced impacted likely comminuted fracture involving the midshaft of the fifth metatarsal. There is 8 mm displacement at the fracture site and 5 mm overlap of fracture fragments. No intra-articular extension or dislocation. There is surrounding soft tissue swelling. Ankle mortise is maintained. Talar dome is intact. No ankle joint effusion. Diffuse subcutaneous edema of the lower leg and ankle. XR/XR ankle LT 2V IMPRESSION: Displaced impacted fracture involving mid shaft of the fifth metatarsal.
== END 2023-07-24 09:13 | disposition home or self-care (01) ==
LOC: HO.HMGCX 09:12
PROVIDERS: PCP Internal Medicine; Visit Provider Nurse Practitioner Family
DX: M79.605 Pain in left leg (principal); M79.672 Pain in left foot
CPT/HCPCS: 73600; 73620

== ENCOUNTER 2023-08-01 12:13 | Outpatient (REF) | payer MEDICARE, MEDICAID, SELFPAY ==
--- NOTE | ~2023-08-01 | XR_ITS ---
EXAMINATION: XR FOOT, LEFT CLINICAL INFORMATION: Pain in left foot. COMPARISON: 07/24/2023. TECHNIQUE: AP, lateral, and oblique views of the left foot. FINDINGS: Redemonstration of a displaced, impacted, likely comminuted fracture of the mid shaft of the fifth metatarsal with displacement and overlap of fracture fragments redemonstrated. Fracture does not appear to extend to articular surfaces. Surrounding soft tissue swelling. XR/XR foot LT min 3V IMPRESSION: Redemonstration of displaced, impacted, likely comminuted fracture of the mid shaft of the fifth metatarsal with displacement and overlap of fracture fragments redemonstrated.
== END 2023-08-01 12:14 | disposition home or self-care (01) ==
LOC: HO.HOSX 12:13
PROVIDERS: Visit Provider Physician Assistant
DX: M79.672 Pain in left foot (principal); S92.352D Displaced fracture of fifth metatarsal bone, left foot, subsequent encounter for fracture with routine healing; W20.8XXA Other cause of strike by thrown, projected or falling object, initial encounter; Y93.9 Activity, unspecified; Y92.9 Unspecified place or not applicable; Y99.9 Unspecified external cause status
CPT/HCPCS: 73630; 99212

== ENCOUNTER 2023-08-01 14:21 | Outpatient (AMB) | payer MEDICARE, MEDICAID, SELFPAY ==
--- NOTE | 2023-08-01 14:41 | A.OFFVIS_ITS ---
Intake Vital Signs 08/01/23 14:42 Height 5 ft 4 in Weight 183 lb BMI 31.4 Intake Visit Reasons: FC- LT Foot fx Intake Note: [place]rell 63 yr old female presents today for a new patient visit for her left foot fracture. States on 07/26/23 a chair fell on her foot. [place] pain, seen in ED and was told she has a fracture. States she was given crutches however she has a balance problem and feels she will fall again due to use of crutches. Currently states she has pain 2/10. States she has purchased a cane to help her walk. Allergies latex Allergy (Mild, Verified 08/01/23 14:46) Rash HPI FC- LT Foot fx HPI Details 63-year-old female who presents to the [facility] today for evaluation of left foot injury . She states she was pulling a blanket when a chair fell on her foot, 07/26/23. She was seen at ED where she was given crutches. She currently states she has pain and swelling in her foot and rates the pain as 2 on the scale of 0-10. She uses Aleve and elevation for her pain. She reports she had imbalance with using the crutches and feels as if she will fall again due to them. She is using a cane to ambulate. [facility] Medical History (Updated 08/05/23 @ 16:15 by Pricila Pérez PA-C) Wrist fracture, right Pulmonary nodules Tobacco dependence COPD (chronic obstructive pulmonary disease) Bronchiolitis Dyskinesia Complex partial seizure disorder History of seizure (HFpEF) heart failure with preserved ejection fraction Edema of both lower extremities PFO (patent foramen ovale) Anxiety and depression Low back pain Fatty liver Asthma COVID-19 vaccine series started Surgical History History of ankle surgery History of loop electrical excision procedure (LEEP) History of esophagogastroduodenoscopy (EGD) Hx of colonoscopy Family History Mother Pancreatic cancer Social History Alcohol intake: current Alcohol intake frequency: holidays/special occasions only Comment: hematoma mid chest & broken collar bone Patient Tobacco Use Status: Current everyday Tobacco user Tobacco use type: Cigarette Cigarette Packs Per Day: 1 Cigarettes Per Day: 20.0 Years Smoked: 30 +/- Second Hand Smoke Exposure: Yes Substance Use Type: Marijuana 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al status: 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 Review of Systems Const All systems reviewed & are unremarkable except as noted in HPI and below Physical Exam Vital Signs: BMI result Body Mass Index 31.4 Const General: cooperative, healthy appearing, comfortable, no acute distress, well developed and alert Orientation/consciousness: patient oriented x3 HEENT Head: Yes normal to inspection, Yes normocephalic and Yes atraumatic Eyes General: appearance normal, both eyes and all related structures Resp Effort & Inspection: normal respiratory effort and able to speak in complete sentences Cardio Rate: regular rate Peripheral pulses: Peripheral pulses 2+ throughout GI Palpation (GI): Soft to palpation Skin Lesions: no lesions Rashes: no rashes Neuro General: patient oriented x3 Extrem Other: Left foot: Skin intact. There is some bruising of the lateral edge of the left foot. There is tenderness at the base of the 5th metatarsal. Sensation intact. EHL intact. No pain along the mediolateral malleolus. Neurovascularly intact. Office Procedures Fracture Care Fracture Billing Code: Fracture Billing Code Results Reviewed Results Reviewed: Xrays were obtained in the office today and personally reviewed by me of the left show fracture involving mid shaft of the fifth metatarsal. Assessment & Plan Assessment & Plan (1) Fracture of 5th metatarsal: Code(s): S92.353A - Displaced fracture of fifth metatarsal bone, unspecified foot, initial encounter for closed fracture Qualifiers: Encounter type: initial encounter Fracture type: closed Fracture alignment: displaced Laterality: left Qualified Code(s): S92.352A - Displaced fracture of fifth metatarsal bone, left foot, initial encounter for closed fracture Plan She was fit for a short boot which she will weight bear as tolerated. She can remove the boot for hygiene and resting. I did stress the importance of icing and elevating and how smoking can delay bone healing which she does express understanding. I would like to see her back in 6 weeks with x-rays, sooner if needed. Orders: Orders XR foot LT min 3V 08/01/23 M79.672 - Pain in left foot Patient Instructions: Scribed for Telly-Sole Pérez PA-C, by Jax Abhang, manager medical writing, on 08/01/2023 at 2:30 PM Pricila VILLASENOR PA-C, have personally reviewed and agree with the information entered by the scribe. Coding Level of Care Code New Pt Level 3 (17217) Diagnoses Closed displaced fracture of fifth metatarsal bone of left foot, initial encounter S92.352A Encounter type: initial encounter Fracture type: closed Fracture alignment: displaced Laterality: left CPT Codes Fracture Care - Fracture Billing Code: Fracture Billing Code ([id number])
[2023-08-01 14:42] VITALS: BMI 31.4
== END 2023-08-01 14:57 | disposition home or self-care (01) ==
PROVIDERS: PCP Internal Medicine; Visit Provider Physician Assistant
DX: S92.352A Displaced fracture of fifth metatarsal bone, left foot, initial encounter for closed fracture (principal); W20.8XXA Other cause of strike by thrown, projected or falling object, initial encounter
CPT/HCPCS: 99214

== ENCOUNTER → 2023-11-21 07:40 | Outpatient (REF) | payer MEDICARE, MEDICAID, SELFPAY ==
--- NOTE | 2023-11-21 07:46 | CA_ITS ---
Transthoracic Echocardiogram Patient (Last, First, Middle): Kayleigh Grossman, Gender: Female Date of : 1960 Age: 63 Procedure Date: 11/21/2023 Procedure Type: Transthoracic Echocardiogram Location: OP Height: 162.56 cm Weight: 83.01 kg BSA: 1.88 m2 Heart Rate: 57 bpm BP: 122 / 70 mmHg Bundle Sorter: SB Referring MD: Saad Bernal MD Symptoms: I50.30 - Unspecified diastolic (congestive) heart failure Study Quality: Adequate w contrast ECG Rhythm: Bradycardia Conclusions: - The left ventricular systolic function is normal. The visually estimated ejection fraction is between 65-70%. - No obvious valvular pathology seen on this study. - There is mild dilatation of the ascending aorta measuring 4.10 cm. Findings Procedure Information Contrast agent, definity, is being given per protocol without apparent complications. The quality of the study was technically difficult. The study quality is limited by lung artifact. Left Ventricle Normal left ventricular cavity size. There is mildly increased left ventricular wall thickness. The left ventricular systolic function is normal. The visually estimated ejection fraction is between 65-70%. There is no evidence of regional wall motion abnormalities. Diastolic function is normal for age. Right Ventricle Mildly increased right ventricular cavity size. There is normal right ventricular systolic function. Atria Both atria are normal in size. Aortic Valve There is a normal trileaflet aortic valve. There is no aortic valve stenosis. There is no aortic valve regurgitation. Mitral Valve The mitral valve appears normal. There is trace mitral valve regurgitation. There is no mitral valve stenosis. Pulmonic Valve There is trace to mild pulmonic valve regurgitation. Tricuspid Valve There is mild tricuspid valve regurgitation. There is no evidence of pulmonary hypertension. Great Vessels The aortic arch is normal in size. There is mild dilatation of the ascending aorta measuring 4.10 cm. Venous The inferior vena cava is normal in size and collapses greater than 50% with inspiration. Pericardium/Pleural There is a trivial pericardial effusion. Prior Study Comparison No significant change compared to prior study dated: 12/03/2021. Recommendations, Care & Conclusions No obvious valvular pathology seen on this study. Measurements 2D Linear Measurements IVSd: 1.16 0.6-0.9/0.6-1.0 cm LVIDd: 4.71 3.9-5.3/4.2-5.9 cm LVIDd Index: 2.51 2.4-3.2/2.2-3.1 cm/m2 LVIDs: 2.71 2.0-3.6 cm LVPWd: 1.03 0.7-1.1 cm LA Diam: 3.30 2.7-3.8/3.0-4.0 cm LAIDs Index: 1.76 1.5-2.3 cm/m2 LV Mass: 232.98 67-162/88-224 g LV Mass Index: 123.93 43-95/49-115 g/m2 LVOT Diam: 1.90 3.0+(-)1.3 cm 2D Systolic Function EF 4C: 63.70 >55% EF 2C: 80.40 >55% EF BiP: 73.70 >55% Mitral Valve MV Pk E: 0.54 MV PK A: 0.40 MV Decel Time: 259.00 E/A: 1.30 E'Lateral: 7.51 E'Medial: 5.22 E/E' Med: 10.30 E/E' Lat: 7.10 PHT: 76.00 MVA PHT: 2.89 Decel Wharton: 2.07 Aortic Valve AoV Pk Rigoberto: 1.33 AoV Pk Grad: 7.00 CAMILLA: 2.58 LVOT LVOT Pk Rigoberto: 1.23 LVOT Mn Rigoberto: 0.81 LVOT VTI: 0.26 LVOT Pk Grad: 6.00 LVOT Mn Grad: 3.00 LVOT Diam: 1.90 LVOT Area: 2.84 Diastolic Function MV Pk E: 0.54 MV Pk A: 0.40 E/A: 1.30 E'Medial: 5.22 E/E' Med: 10.30 E' Laterial: 7.51 E/E' Lat: 7.10 Right Ventricle TAPSE (mm): 19.50 TVS' Rigoberto: 10.20 Tricuspid Valve TR Pk Rigoberto: 2.42 TR Pk Grad: 23.00 RA Press: 3.00 RVSP: 26.00 Great Vessels Aorta Sinus of Valsalva: 3.10 2.0-3.5 cm Ao Asc: 4.10 2.1-3.4 cm Ao Arch: 3.30 Pulmonary Valve PV Pk Rigoberto: 1.15 Peak PV Grad: 5.00 Updated in Other Vendor System with Status of Final Ag Cagle MD electronically signed on 11/22/2023 1:53:15 PM with status of Final
== END ==
LOC: HO.CARD 07:40
PROVIDERS: PCP Internal Medicine; Visit Provider Internal Medicine Cardiovascular Disease
DX: I50.30 Unspecified diastolic (congestive) heart failure (principal)
CPT/HCPCS: 93306; Q9957

== ENCOUNTER → 2023-11-21 07:46 | Outpatient (BNV) | payer MEDICARE, MEDICAID, SELFPAY | PROVIDERS: PCP Internal Medicine; Visit Provider Internal Medicine | DX: I36.1 Nonrheumatic tricuspid (valve) insufficiency (principal) | CPT/HCPCS: 93306 ==

== ENCOUNTER 2023-11-26 09:48 | Outpatient (AMB) | payer MEDICARE, MEDICAID, SELFPAY ==
[2023-11-26 09:51] VITALS: BP 128/84; PULSE 62; BMI 31.6
--- NOTE | 2023-11-26 09:51 | A.OFFVIS_ITS ---
Vital Signs 11/26/23 09:51 Height 5 ft 4 in Weight 184 lb 1.376 oz BMI 31.6 BP 128/84 Blood Pressure Location Lt brachial Position Sitting Pulse 62 Pulse Source Pulse Oximeter Intake Visit Reasons: Osteoporosis/confirmed Intake Note: Patient present today for Osteoporosis follow up visit. 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 Accompanied by: Self / Same As Patient Allergies latex Allergy (Mild, Verified 11/26/23 09:57) Rash Medication List - Last Reconciled 11/26/23 by Filiberto Alonso MD albuterol sulfate 90 mcg/actuation 2 puffs inhalation Q4-6H PRN alprazolam 0.5 mg PO BID PRN aspirin 81 mg PO DAILY biotin 10,000 mcg PO DAILY calcium carbonate (Calcium 600) 600 mg PO DAILY cephalexin 500 mg PO BID cholecalciferol (vitamin D3) (Vitamin D3) 50 mcg PO DAILY diphenhydramine HCl (Benadryl Allergy) 25 mg PO BEDTIME PRN escitalopram oxalate 20 mg PO DAILY Farxiga (dapagliflozin propanediol) 5 mg PO DAILY NS fluconazole 150 mg PO Q3D 2 doses lcjbrjpmiwe-qaukzmrzk-qefpkmmw 100-62.5-25 mcg (Trelegy Ellipta) 1 inh inhalation DAILY 30 days hecyeogcdjr-yttoryjfo-sdmrqrbs 100-62.5-25 mcg (Trelegy Ellipta) 1 ea inhalation DAILY furosemide 20 mg PO DAILY gabapentin mg PO TID ketoconazole 2% 1 appl topical mesalamine ER 1.5 grams PO DAILY nicotine (Nicotrol) 1 inh inhalation Q2-4H PRN 30 days oxcarbazepine 300 mg PO BID phenazopyridine (Pyridium) 100 mg PO TID PRN spironolactone 25 mg PO DAILY valbenazine (Ingrezza) 80 mg PO DAILY HPI Comments Details: 63 YO Female withis seen in consultation at the request of PCP for Osteoporosis. First diagnosed in 4 yrs ago . Patient was previously seen at [facility] endocrine. She was seen by Dr. Lockett who did a very extensive secondary workup which was negative Received treatment in the past with Reclast , 2 yrs ago Tolerated treatment well without complication. There is a history of pathologic fracture compression fractures of the lumbar thoracic junction. There also was a history of fracture of the clavicle 1 yr ago after falling . No ONJ. Has several servings of dietary calcium per day in the form of cheese, milk OJ . Takes Calcium supplement 600 mg BID in divided doses. Takes 2000 IU of Vitamin D daily. Denies ever using PPI, anticoagulant, antiepileptic or glucocorticoid medication. 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 UTD on dental cleanings and sees dentist every 6 months. No planned upcoming dental work or extractions.Extractions completed DXA dated >4 yrs ago : Labs: [facility] Medical History (Updated 11/26/23 @ 09:58 by Filiberto Alonso MD) Osteoporosis Wrist fracture, right Pulmonary nodules Tobacco dependence COPD (chronic obstructive pulmonary disease) Bronchiolitis Dyskinesia Complex partial seizure disorder History of seizure (HFpEF) heart failure with preserved ejection fraction Edema of both lower extremities PFO (patent foramen ovale) Anxiety and depression Low back pain Fatty liver Asthma COVID-19 vaccine series started Surgical History History of ankle surgery History of loop electrical excision procedure (LEEP) History of esophagogastroduodenoscopy (EGD) Hx of colonoscopy Family History Mother Pancreatic cancer Social History Alcohol intake: current Alcohol intake frequency: holidays/special occasions only Comment: hematoma mid chest & broken collar bone Patient Tobacco Use Status: Current everyday Tobacco user Tobacco use type: Cigarette Cigarette Packs Per Day: 1 Cigarettes Per Day: 20.0 Years Smoked: 30 +/- Second Hand Smoke Exposure: Yes Substance Use Type: Marijuana 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al status: 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 Absence of blue sclera. Absence of kyphosis. Thyroid gland is of nl size and weighs 15 gms. There are no thyroid nodules palpated. Lungs CTA. Heart S1 S2 Reg R/R Abdominal exam benign. Muscle strength 5/5 . Examination of spine reveals absence of tenderness on palpation Assessment & Plan Assessment & Plan (1) Osteoporosis: Code(s): M81.0 - Age-related osteoporosis without current pathological fracture Category: Medical Plan: This 63-year-old white female with a history of multiple fragility fractures in the setting of normal bone density suggesting disruption of micro architecture of the bone. By virtue of multiple fragility fractures, patient has severe osteoporosis regardless for bone density. Secondary workup has been negative. Patient is currently on calcium and vitamin-D supplementation. Plan is to talk to the patient about potentially starting anabolic therapy should just with Antony Boss or Oxana. In light of the multiple fragility fractures, patient is a very high risk for subsequent fracture would benefit from anabolic therapy initially to strength in bone followed by anti resorptive therapy in the form of an oral or intravenous bisphosphonate. For now, we will repeat DEXA bone density of hip, spine distal forearm as well as obtain repeat urine NTX. She will continue with the calcium and vitamin-D supplementation Orders: Orders XR DEXA appendicular skeleton Today M81.0 - Age-related osteoporosis without current pathological fracture Collagen Crosslinks NTX Today M81.0 - Age-related osteoporosis without current pathological fracture XR DEXA axial skeleton Today M81.0 - Age-related osteoporosis without current pathological fracture Coding Level of Care Code New Pt Level 4 (18164) Diagnoses Osteoporosis M81.0
== END 2023-11-26 10:38 | disposition home or self-care (01) ==
PROVIDERS: PCP Internal Medicine; Visit Provider Internal Medicine Endocrinology, Diabetes & Metabolism
DX: M81.0 Age-related osteoporosis without current pathological fracture (principal)
CPT/HCPCS: 99204

== ENCOUNTER → 2023-11-26 09:48 | Outpatient (BNVA) | payer MEDICARE, MEDICAID, SELFPAY | PROVIDERS: PCP Internal Medicine; Visit Provider Internal Medicine Endocrinology, Diabetes & Metabolism | DX: M81.0 Age-related osteoporosis without current pathological fracture (principal) | CPT/HCPCS: 99202 ==

== ENCOUNTER 2023-12-04 10:19 | Outpatient (REF) | payer MEDICARE, MEDICAID, SELFPAY ==
[2023-12-10 02:18] LABS: N-Telopeptide 29 (see note); NTXCreaRU 67 mg/dL (20-275)
== END 2023-12-04 10:20 | disposition home or self-care (01) ==
LOC: HO.10HDLNP 10:19
PROVIDERS: Visit Provider Internal Medicine Endocrinology, Diabetes & Metabolism
DX: M81.0 Age-related osteoporosis without current pathological fracture (principal)
CPT/HCPCS: 82523

== ENCOUNTER 2023-12-10 09:15 | Outpatient (REF) | payer MEDICARE, MEDICAID, SELFPAY ==
[2023-12-10 12:11] LABS: B Type Natriuretic Peptide 59 pg/mL (<100)
[2023-12-10 12:19] LABS: Anion Gap 14 (12-20); Blood Urea Nitrogen 14 mg/dL (9-16); Calcium 9.9 mg/dL (8.4-10.2); Carbon Dioxide 27 mmol/L (22-29); Chloride 104 mmol/L (96-108); Estimated Glomerular Filt Rate 53; Glucose Random 84 mg/dL (60-115); Sodium 141 mmol/L (135-145)
== END 2023-12-10 09:16 | disposition home or self-care (01) ==
LOC: HO.LAB 09:15
PROVIDERS: PCP Internal Medicine; Visit Provider Internal Medicine Cardiovascular Disease
DX: I50.30 Unspecified diastolic (congestive) heart failure (principal); I77.810 Thoracic aortic ectasia
CPT/HCPCS: 36415; 80048; 83880; 93005; 99212

== ENCOUNTER 2023-12-10 09:15 | Outpatient (AMB) | payer MEDICARE, MEDICAID, SELFPAY ==
[2023-12-10 09:18] VITALS: BP 120/58; PULSE 71; BMI 31.0
--- NOTE | 2023-12-10 09:18 | A.OFFVIS_ITS ---
Vital Signs 12/10/23 09:18 Height 5 ft 4 in Weight 180 lb 12.465 oz BMI 31.0 BP 120/58 L Blood Pressure Location Lt brachial Position Sitting Pulse 71 Pulse Source Monitor Intake Visit Reasons: fu (rs) Allergies latex Allergy (Mild, Verified 11/26/23 09:57) Rash Medication List - Last Reconciled 12/10/23 by Saad Bernal MD albuterol sulfate 90 mcg/actuation 2 puffs inhalation Q4-6H PRN alprazolam 0.5 mg PO BID PRN aspirin 81 mg PO DAILY biotin 10,000 mcg PO DAILY calcium carbonate (Calcium 600) 600 mg PO DAILY cholecalciferol (vitamin D3) (Vitamin D3) 25 mcg PO DAILY diphenhydramine HCl (Benadryl Allergy) 25 mg PO BEDTIME PRN escitalopram oxalate 20 mg PO DAILY Farxiga (dapagliflozin propanediol) 5 mg PO DAILY NS fluconazole 150 mg PO Q3D 2 doses cqflhwhkrsn-prjknvpwl-fwklyely 100-62.5-25 mcg (Trelegy Ellipta) 1 inh inhalation DAILY 30 days aremfwlmrzx-scwttaoao-ssycfial 100-62.5-25 mcg (Trelegy Ellipta) 1 ea inhalation DAILY furosemide 20 mg PO DAILY gabapentin mg PO TID ketoconazole 2% 1 appl topical mesalamine ER 1.5 grams PO DAILY oxcarbazepine 300 mg PO BID phenazopyridine (Pyridium) 100 mg PO TID PRN spironolactone 25 mg PO DAILY valbenazine (Ingrezza) 80 mg PO DAILY HPI Comments Details: Kayleigh comes for follow-up. She has been doing very well from cardiac perspective. No hospitalization related to heart failure. She does not monitor weight on a regular basis but takes salt her medications. Denies any orthopnea, PND. Unfortunately she continues to smoke and has exertional shortness of breath. No worsening leg edema. No abdominal distension. Denies any exertional chest pain. Recent echocardiogram shows normal LV ejection fraction but with mildly dilated ascending aorta at 4.1 cm. [facility] Medical History (Updated 12/10/23 @ 09:45 by Saad Bernal MD) Osteoporosis Wrist fracture, right Pulmonary nodules Tobacco dependence COPD (chronic obstructive pulmonary disease) Bronchiolitis Dyskinesia Complex partial seizure disorder History of seizure (HFpEF) heart failure with preserved ejection fraction Edema of both lower extremities PFO (patent foramen ovale) Anxiety and depression Low back pain Fatty liver Asthma COVID-19 vaccine series started Surgical History History of ankle surgery History of loop electrical excision procedure (LEEP) History of esophagogastroduodenoscopy (EGD) Hx of colonoscopy Family History Mother Pancreatic cancer Social History Alcohol intake: current Alcohol intake frequency: holidays/special occasions only Comment: hematoma mid chest & broken collar bone Patient Tobacco Use Status: Current everyday Tobacco user Tobacco use type: Cigarette Cigarette Packs Per Day: 1 Cigarettes Per Day: 20.0 Years Smoked: 30 +/- Second Hand Smoke Exposure: Yes Substance Use Type: Marijuana 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al status: 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 Review of Systems Const Denies weakness ENT Denies dizziness Card Denies chest pain, Denies chest pain with activity, Denies syncope, Denies rapid heart rate, Denies pedal edema, Denies edema, Denies leg edema, Denies lightheadedness, Denies palpitations, Denies dyspnea, Denies dyspnea on exertion and Denies orthopnea Resp Denies cough, Denies dyspnea and Denies dyspnea on exertion GI Denies hematochezia and Denies change in stool character Musc Denies abnormal gait, Denies muscle cramps, Denies muscle weakness, Denies numbness, Denies radiating pain into limb and Denies tingling Neuro Denies abnormal gait, Denies dizziness, Denies syncope, Denies numbness, Denies tingling and Denies weakness Endo Denies palpitations Physical Exam Vital Signs: Last Vital Signs Pulse 71 12/10/23 09:18 BP 120/58 L 12/10/23 09:18 BMI result Body Mass Index 31.0 Const General: cooperative, comfortable, no acute distress, alert and awake Nutritional Appearance: obese Orientation/consciousness: patient oriented x3 Limitations: no limitations Neck Neck: Yes trachea midline, Yes supple and Yes no JVD Resp Effort & Inspection: normal respiratory effort Auscultation: clear to auscultation bilaterally Cardio Jugular venous distension: no JVD Palpation: normal PMI Rate: regular rate Rhythm: regular rhythm Heart sounds: S1 normal heart sound present, S2 normal heart sound present, no click, no gallops, no murmurs and no rubs GI Auscultation: normal bowel sounds Skin General skin exam: no rashes or lesions noted Neuro General: patient oriented x3 and no focal motor deficits Extrem General: Yes no clubbing, cyanosis or edema, Yes pedal edema, Yes venous stasis dermatitis and Yes other (Bilateral mild varicosities) Psych Appearance: grossly normal Office Procedures EKG Details: EKG shows normal sinus rhythm with right bundle-branch block [id number], Complete Assessment & Plan Assessment & Plan (1) (HFpEF) heart failure with preserved ejection fraction: Code(s): I50.30 - Unspecified diastolic (congestive) heart failure Category: Medical Plan: Heart failure preserved ejection fraction, has done well with the last year with no worsening heart failure syndrome and/or no hospitalizations. Continue current therapy with Lasix, Farxiga as well as spironolactone therapy. Importance of heart failure management discussed. Daily weight monitoring avoidance of salt loading was discussed. Additional diuretics as need be. Impo rtance of smoking cessation to reduce risk of progressive pulmonary disease which can affect her heart failure syndrome was discussed with her. She is currently not interested. (2) Ascending aorta dilatation: Code(s): I77.810 - Thoracic aortic ectasia Category: Medical Plan: Ascending aortic dilatation 4.1 cm most likely related to multiple risk factors including age as well as smoking and most likely atherosclerotic in nature. Will require echocardiogram on a yearly basis. Smoking cessation was discussed. Avoidance of sudden strenuous isometric exercise was discussed. Follow up in the clinic in 1 year's time, sooner p.r.n.. Thank you for allowing me to partake in her care Orders: Orders B Type Natriuretic Peptide Today I50.30 - Unspecified diastolic (congestive) heart failure CA echo transthoracic complete 1 Year I50.30 - Unspecified diastolic (congestive) heart failure Basic Metabolic Panel Today I50.30 - Unspecified diastolic (congestive) heart failure Coding Level of Care Code Est Pt Level 4 (70995) Diagnoses (HFpEF) heart failure with preserved ejection fraction I50.30 Ascending aorta dilatation I77.810 CPT Codes EKG - CPT: 16332-[id number], Complete ([id number])
== END 2023-12-10 09:45 | disposition home or self-care (01) ==
PROVIDERS: PCP Internal Medicine; Visit Provider Internal Medicine Cardiovascular Disease
DX: I50.30 Unspecified diastolic (congestive) heart failure (principal); I77.810 Thoracic aortic ectasia
CPT/HCPCS: 93010; 99214

== ENCOUNTER 2023-12-31 09:04 | Outpatient (REF) | payer MEDICARE, MEDICAID, SELFPAY ==
--- NOTE | ~2023-12-31 | MM_ITS ---
EXAMINATION: BONE DENSITOMETRY CLINICAL INDICATION: Age-related osteoporosis without current pathological fracture. COMPARISON: This is the patient's baseline examination. TECHNIQUE: Using a [employer] DXA System (software version: 13.1) manufactured by [employer], dual-energy x-ray absorptiometry was performed of the lumbar spine, left hip, and left forearm radius 33%. The images are of good technical quality. Summary results are attached. FINDINGS: LEFT FEMUR, NECK: BMD 0.981 g/cm2, Z-score 0.7, T-score -0.4, normal. LEFT FEMUR, TOTAL: BMD 0.932 g/cm2, Z-score 0.2, T-score -0.6, normal. AP SPINE L1-L3 (excluding L4): The data of L1-L4 has been changed to exclude the L4 vertebral body, because at this level may cause overestimation of lumbar spine density. BMD 1.223 g/cm2, Z-score 1.5, T-score 0.4, normal. LEFT FOREARM RADIUS 33%: BMD 0.819 g/cm2, Z-score 0.8, T-score -0.7, normal. IDENTIFIED RISK FACTORS: Menopause, height loss, history of fracture (adult), osteoporosis, recurrent falls. HISTORY OF FRACTURE: Wrist, other. MEDICATIONS: Calcium, vitamin D. MM/XR DEXA appendicular skeleton IMPRESSION: 1. DIAGNOSIS: Normal bone density based on the lowest T-score value of -0.7 in the forearm radius 33% applying World Health Organization criteria. 2. 10-YEAR FRACTURE RISK PREDICTION, FRAX: According to the guidelines, FRAX calculation should only be performed on patients in the osteopenia bone density category. Therefore, FRAX was not performed on this patient. 3. Treatment Recommendations: NOF guidelines recommend consideration for treatment in postmenopausal women and men age 50 and older presenting with the following: -A hip or vertebral (clinical or morphometric) fracture. -T-score less than or equal to -2.5 at the femoral neck or spine after appropriate evaluation to exclude secondary causes. -Low bone mass at the hip or spine and a 10-year fracture probability by FRAX of greater than or equal to 3% for hip fracture or greater than or equal to 20% for major osteoporotic fracture based on the [place] adapted WHO algorithm. 4. Other Recommendations: All treatment decisions require clinical judgment and consideration of individual patient factors, including patient preferences, comorbidities, previous drug use, risk factors not captured in the FRAX model (e.g. frailty, falls, vitamin D deficiency, increased bone turnover, interval significant decline in bone density) and possible under or overestimation of fracture risk by FRAX. FUTURE SCAN RECOMMENDATION: People with diagnosed cases of osteoporosis or at high risk for fracture should have regular bone mineral density tests. For patients eligible for Medicare, routine testing is allowed once every 2 years. The testing frequency can be increased to one year for patients who have rapidly progressing disease, those who are receiving or discontinuing medical therapy to restore bone mass, or have additional risk factors.
== END 2023-12-31 09:05 | disposition home or self-care (01) ==
LOC: HO.MAMMO 09:04
PROVIDERS: PCP Internal Medicine; Visit Provider Family Medicine
DX: M81.0 Age-related osteoporosis without current pathological fracture (principal)
CPT/HCPCS: 77081

== ENCOUNTER 2024-02-04 10:39 | Outpatient (AMB) | payer MEDICARE, MEDICAID, SELFPAY ==
[2024-02-04 10:43] VITALS: BP 118/70; PULSE 72; O2SAT 96; BMI 32.0
--- NOTE | 2024-02-04 10:43 | A.OFFVIS_ITS ---
Vital Signs 02/04/24 10:43 Height 5 ft 4 in Weight 186 lb 4.65 oz BMI 32.0 BP 118/70 Blood Pressure Location Lt brachial Position Sitting Pulse 72 Pulse Source Pulse Oximeter Pulse Oximetry (%) 96 Oxygen Delivery Method Room Air Intake Visit Reasons: asthma Allergies latex Allergy (Mild, Verified 02/04/24 10:46) Rash HPI Comments Details: The patient is a 63 year woman with a known history of tobacco dependency in addition to COPD who was referred to us for evaluation of an abnormal CT scan of the chest. Apparently the patient has had pulmonary nodules now for many years. Ultimately she was placed on Anoro with good response. She has a rescue inhaler that she does not use. More recently in January 14 she did undergo a repeat CT scan of the chest at [facility]. I personally reviewed the CT scan myself with the patient. It appears that she does have evidence of tree-in-bud which in this case appears to be bronchiolitis. This involving the upper lung zones in addition to the right middle lobe. The right middle lobe appears to have some degree of atelectasis in addition to more extensive airspace disease. We talked about the differential. The patient understands that smoking related interstitial lung conditions is in the differential. In addition to smoldering infections. The patient is not expectorating significant amount of mucus. The patient denies any weight loss or night sweats. Denies any hemoptysis. No evidence of any concerning findings suggest a malignant process. It also appears that the treating budding or bronchiolitis was also present last year. At this point will try to maximize her respiratory therapy by adding an inhaled cortical steroid to minimize the bronchiolitis component. The patient also needs to work on her smoking cessation. She is motivated to quitting although she understands that she is going to have a hard time. We did talk about the Nicotrol inhaler and she is willing to try that. Initially she can alternate a regular cigarette with the Nicotrol inhaler and hopefully wean off completely from the cigarette smoke. The patient also will try to provide us with a sputum sample for AFB in culture to further assess for non tuberculosis mycobacterial infections which can manifest in this form. 01/01/2023 the patient is here for pulmonary follow-up visit. She is still smoking. She has had a hard time because her psychiatric medications were changed. She also has significant stresses in her home. She was not able to quit. I did send of the Nicotrol inhaler although I am not sure is going to be covered. I do believe will be a good option for her since she likes the habit of holding on to the cigarette. The patient also had a recent CT scan of the chest at [facility]. I do not have the results as of yet. I am going to be able to look at him later on. The patient has had pulmonary nodules and has a question of smoldering infection. We were able to send a sputum culture for AFB back last year and was negative for AFB which is reassuring although not 100%. The patient has been using the Trelegy inhaler and this has been more effective for her breathing. She does take it with good adherence. At this point the patient did fall she hurt her right wrist. She did not have any x-rays. I did put in for some x-rays she can have that looked at. Otherwise patient is to follow-up with her primary care doctor regarding that. 06/24/2023 the patient is here for a pulmonary follow-up visit. The patient has been struggling with smoking. She still enjoying the smoking. She gets very anxious when she stops smoking. She did try the Nicotrol inhaler but that was not helpful. She is tried multiple prescription medications for smoking cessation without any benefit. I did provide her with a pamphlet where she can call and seek further smoking cessation counseling through a [facility] program. She a lso recently was diagnosed with tardive dyskinesia and she is struggling with the diagnosis. The patient did have a CT scan done at [facility] which we personally reviewed. The patient does have evidence of numerous micronodular densities in distribution consistent with respiratory bronchiolitis. Likely respiratory bronchiolitis interstitial lung disease which is interstitial lung disease related to her smoking. The patient understands that if this is capped untreated by her continues smoking then she can develop inflammation of the lungs and potentially lung fibrosis. Will continue to evolve monitor the evolution of this process. She is participating in the screening CT scans at [facility]. The patient is responding well to Trelegy inhaler. She does use it once a day. She also has a rescue inhaler. She does have a cough productive in nature typically in the morning consistent with her smoker's cough. 02/04/2024 the patient is here for a pulmonary follow-up visit. Overall she is doing okay. Unfortunately she has not been able to quit smoking. She still motivated does want to quit. She did try Chantix in the past twice. The 1st time was very effective. Then the 2nd time she got nauseous and she could not tolerate it. She never really got depression from. She does have a diagnosed the depression she does have a psychiatrist. Therefore, I do feel comfortable sending the prescription of the Chantix to the pharmacy started pack. However, I did request that she can call her psychiatrist to make sure that is okay with them. In the meantime the patient continues with respiratory therapy. She is responding well to the Trelegy. She has not had to use her rescue inhaler. In addition to that she continues to participate in the lung cancer screening program. However, she no longer going to [facility] since [facility] no longer takes her insurance. Will go ahead and refer her to our program here. The patient follow-up in 6 months. If she develops any issues prior to that she will call for an earlier assessment. She also needs to call to make sure that she continues on the maintenance Chantix when she completes the starter pack. [facility] Medical History (Updated 12/10/23 @ 09:45 by Saad Bernal MD) Osteoporosis Wrist fracture, right Pulmonary nodules Tobacco dependence COPD (chronic obstructive pulmonary disease) Bronchiolitis Dyskinesia Complex partial seizure disorder History of seizure (HFpEF) heart failure with preserved ejection fraction Edema of both lower extremities PFO (patent foramen ovale) Anxiety and depression Low back pain Fatty liver Asthma COVID-19 vaccine series started Surgical History History of ankle surgery History of loop electrical excision procedure (LEEP) History of esophagogastroduodenoscopy (EGD) Hx of colonoscopy Family History Mother Pancreatic cancer Social History Alcohol intake: current Alcohol intake frequency: holidays/special occasions only Comment: hematoma mid chest & broken collar bone Patient Tobacco Use Status: Current everyday Tobacco user Tobacco use type: Cigarette Cigarette Packs Per Day: 1 Cigarettes Per Day: 20.0 Years Smoked: 30 +/- Second Hand Smoke Exposure: Yes Substance Use Type: Marijuana 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al status: 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 Review of Systems Const Denies fever(s) and Denies weight loss Eyes Denies change in vision and Denies itchy eyes ENT Denies change in voice and Denies lip swelling Card Denies chest pain, Denies dyspnea and Reports dyspnea on exertion Resp Denies chest congestion, Reports cough, Denies hemoptysis, Denies dyspnea and Reports dyspnea on exertion GI Reports no additional complaints Musc Reports as per HPI, Reports abnormal gait, Reports arthralgias and Reports joint swelling Skin/Breast Denies rash Neuro Reports no additional complaints and Reports abnormal gait Psych Reports anxiety Lucius/Lymph Denies easy bleeding, Denies easy bruising and Denies lymphadenopathy Aller/Immun Denies itchy eyes and Denies lip swelling Physical Exam Vital Signs: Last Vital Signs Pulse 72 02/04/24 10:43 BP 118/70 02/04/24 10:43 Pulse Ox 96 02/04/24 10:43 Oxygen Delivery Method Room Air 02/04/24 10:43 BMI result Body Mass Index 32.0 Const General: comfortable HEENT Head: Yes normal to inspection Eyes General: appearance normal, both eyes and all related structures Neck Neck: Yes supple Chest Chest palpation & inspection: normal inspection of the chest Resp Effort & Inspection: normal respiratory effort Auscultation: no rales, no rhonchi, no wheezes and diminished lung sounds Cardio Rate: regular rate Rhythm: regular rhythm Heart sounds: S1 normal heart sound present and S2 normal heart sound present GI Auscultation: normal bowel sounds Skin General skin exam: no rashes or lesions noted Extrem General: Yes no clubbing, cyanosis or edema Right upper extremity: wrist Details: tenderness, swelling and warmth; no deformity Assessment & Plan Assessment & Plan (1) Bronchiolitis: Comment: RB ILD related to smoking Code(s): J21.9 - Acute bronchiolitis, unspecified Category: Medical (2) COPD (chronic obstructive pulmonary disease): Code(s): J44.9 - Chronic obstructive pulmonary disease, unspecified Category: Medical Qualifiers: COPD type: chronic bronchitis Chronic bronchitis type: mixed simple and mucopurulent Qualified Code(s): J41.8 - Mixed simple and mucopurulent chronic bronchitis (3) Tobacco dependence: Code(s): F17.200 - Nicotine dependence, unspecified, uncomplicated Category: Medical (4) Cough: Code(s): R05 - Cough Category: Medical Qualifiers: Cough type: chronic Qualified Code(s): R05.3 - Chronic cough (5) Pulmonary nodules: Code(s): R91.8 - Other nonspecific abnormal finding of lung field Category: Medical Plan continue Trelegy MAYTE as needed stopped nicotrol inhaler infotmation provided for smoking cessation program start chantix, she will call her psychiatrist prior to starting it CT chest 12/2023 as per [facility] ont done, will refer to the [facility] LDCT program F/U 6 months Orders: Referrals Lung Cancer Screening Referral R91.8 - Other nonspecific abnormal finding of lung field, W19.XXXA - Unspecified fall, initial encounter Medications: New varenicline (Chantix Starting Month Box) PO PER PKG DIR 42 ea 0RF Coding Level of Care Code Est Pt Level 4 (93414) Diagnoses Bronchiolitis J21.9 Mixed simple and mucopurulent chronic bronchitis J41.8 COPD type: chronic bronchitis Chronic bronchitis type: mixed simple and mucopurulent Tobacco dependence F17.200 Chronic cough R05.3 Cough type: chronic Pulmonary nodules R91.8 Time Spent (min) 16
== END 2024-02-04 11:07 | disposition home or self-care (01) ==
PROVIDERS: PCP Internal Medicine; Visit Provider Hospitalist
DX: J21.9 Acute bronchiolitis, unspecified (principal); J41.8 Mixed simple and mucopurulent chronic bronchitis; F17.200 Nicotine dependence, unspecified, uncomplicated; R05.3 Chronic cough; R91.8 Other nonspecific abnormal finding of lung field
CPT/HCPCS: 99214

== ENCOUNTER → 2024-02-04 10:39 | Outpatient (BNVA) | payer MEDICARE, MEDICAID, SELFPAY | PROVIDERS: PCP Internal Medicine; Visit Provider Hospitalist | DX: J21.9 Acute bronchiolitis, unspecified (principal); J41.8 Mixed simple and mucopurulent chronic bronchitis; R05.3 Chronic cough; R91.8 Other nonspecific abnormal finding of lung field; F17.210 Nicotine dependence, cigarettes, uncomplicated | CPT/HCPCS: 99212 ==

== ENCOUNTER 2024-02-26 09:46 | Outpatient (AMB) | payer MEDICARE, MEDICAID, SELFPAY ==
[2024-02-26 10:08] VITALS: BP 118/80; PULSE 60; BMI 31.7
--- NOTE | 2024-02-26 10:08 | A.OFFVIS_ITS ---
Vital Signs 02/26/24 10:08 Height 5 ft 4 in Weight 184 lb 8.43 oz BMI 31.7 BP 118/80 Blood Pressure Location Lt brachial Position Sitting Pulse 60 Pulse Source Pulse Oximeter Intake Visit Reasons: Osteoporosis-conf Intake Note: Patient present today for Osteoporosis office visit. Procurement Intern Required: No Accompanied by: Self / Same As Patient Allergies latex Allergy (Mild, Verified 02/26/24 10:13) Rash HPI Comments Details: 63 YO Female withis seen in consultation at the request of PCP for Osteoporosis. First diagnosed in 4 yrs ago . Patient was previously seen at [facility] endocrine. She was seen by Dr. Lockett who did a very extensive secondary workup which was negative Received treatment in the past with Reclast , 2 yrs ago Tolerated treatment well without complication. There is a history of pathologic fracture compression fractures of the lumbar thoracic junction. There also was a history of fracture of the clavicle 1 yr ago after falling . No ONJ. Has several servings of dietary calcium per day in the form of cheese, milk OJ . Takes Calcium supplement 600 mg BID in divided doses. Takes 2000 IU of Vitamin D daily. Denies ever using PPI, anticoagulant, antiepileptic or glucocorticoid medication. 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 UTD on dental cleanings and sees dentist every 6 months. No planned upcoming dental work or extractions.Extractions completed DXA dated >4 yrs ago : Labs: Recent DEXA showed normal bone density. Urine NTX is suppressed. No fx since last visit. Does not want phrmacologic treatment [facility] Medical History (Updated 02/26/24 @ 10:39 by Amrita Irwin PA-C) Nicotine dependence, cigarettes, uncomplicated Osteoporosis Wrist fracture, right Pulmonary nodules COPD (chronic obstructive pulmonary disease) Bronchiolitis Dyskinesia Complex partial seizure disorder History of seizure (HFpEF) heart failure with preserved ejection fraction Edema of both lower extremities PFO (patent foramen ovale) Anxiety and depression Low back pain Fatty liver Asthma COVID-19 vaccine series started Surgical History History of ankle surgery History of loop electrical excision procedure (LEEP) History of esophagogastroduodenoscopy (EGD) Hx of colonoscopy Family History Mother Pancreatic cancer Social History Alcohol intake: current Alcohol intake frequency: holidays/special occasions only Comment: hematoma mid chest & broken collar bone Patient Tobacco Use Status: Current everyday Tobacco user Tobacco use type: Cigarette Cigarette Packs Per Day: 1 Cigarettes Per Day: 20.0 Years Smoked: 30 +/- Second Hand Smoke Exposure: Yes Substance Use Type: Marijuana 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al status: 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 Physical Exam Vital Signs: Last Vital Signs Pulse 60 02/26/24 10:08 BP 118/80 02/26/24 10:08 BMI result Body Mass Index 31.7 Assessment & Plan Assessment & Plan (1) Osteoporosis: Code(s): M81.0 - Age-related osteoporosis without current pathological fracture Category: Medical Plan: This 63-year-old white female with a history of multiple fragility fractures in the setting of normal bone density suggesting disruption of micro architecture of the bone. By virtue of multiple fragility fractures, patient has severe osteoporosis regardless for bone density. Secondary workup has been negative. Patient is currently on calcium and vitamin-D supplementation. Plan is to continue the calcium and vitamin-D supplementation. We had a long discussion about pharmacologic therapy considering the previous history of fractures with other present bone density is normal and the bone turnover markers suppressed. At this point, patient returned to the care of her primary care provider who could recheck a bone density in about 2 years time. If there is recurrent fracture or significant decline in the bone density, patient returned back to endocrinology for further discussion about pharmacologic treatment Coding Level of Care Code Est Pt Level 3 (51889) Diagnoses Osteoporosis M81.0
== END 2024-02-26 10:40 | disposition home or self-care (01) ==
PROVIDERS: PCP Internal Medicine; Visit Provider Internal Medicine Endocrinology, Diabetes & Metabolism
DX: M81.0 Age-related osteoporosis without current pathological fracture (principal)
CPT/HCPCS: 99213

== ENCOUNTER → 2024-02-26 09:46 | Outpatient (BNVA) | payer MEDICARE, MEDICAID, SELFPAY | PROVIDERS: PCP Internal Medicine; Visit Provider Internal Medicine Endocrinology, Diabetes & Metabolism | DX: M81.0 Age-related osteoporosis without current pathological fracture (principal) | CPT/HCPCS: 99212 ==

== ENCOUNTER 2024-03-26 09:13 | Outpatient (AMB) | payer MEDICARE, MEDICAID, SELFPAY ==
--- NOTE | 2024-03-26 07:53 | A.OFFVIS_ITS ---
Intake Visit Reasons: Current Smoker Allergies latex Allergy (Mild, Verified 02/26/24 10:13) Rash HPI HPI Current Smoker: Details: Initial visit for this 63yo smoker with a 20PYH. Patient started smoking at age 16 for 47 years at 1/2ppd. . Reports occasional marijuana use. Denies second hand smoke exposure. Denies exposure to chemicals or substances like asbestos. . Denies known family history of lung cancer. Denies personal history of cancers. . Denies chest CT in last year. 12/27/[address] [facility] showed innumerable micronodules stable to a 2021 scan . Denies recent travel outside the [place]. Denies recent respiratory illness or recent hospitalization for respiratory issues. Reports testing positive for COVID. Admits receiving COVID Vaccine. x3. . Denies fever, chills, new/worsening cough, hemoptysis, hoarseness or dysphagia. Denies significant chest pain, significant dyspnea or unintentional weight loss. Patient Lung Cancer Screening Questionnaire reviewed with patient by provider. . Shared Decision Making Completed. Patient meets criteria. Discussed in detail with patient, the risk vs benefit of LDCT screening. Patient consents to proceed with scan. Discussed smoking cessation. [facility] Medical History (Updated 03/26/24 @ 09:22 by Amrita Irwin PA-C) Ascending aorta dilatation Nicotine dependence, cigarettes, uncomplicated Osteoporosis Wrist fracture, right Pulmonary nodules COPD (chronic obstructive pulmonary disease) Bronchiolitis Dyskinesia Complex partial seizure disorder History of seizure (HFpEF) heart failure with preserved ejection fraction Edema of both lower extremities PFO (patent foramen ovale) Anxiety and depression Low back pain Fatty liver Asthma COVID-19 vaccine series started Surgical History (Updated 03/26/24 @ 09:17 by Amrita Irwin PA-C) History of cholecystectomy History of colonoscopy History of ankle surgery History of loop electrical excision procedure (LEEP) History of esophagogastroduodenoscopy (EGD) Family History Mother Pancreatic cancer Social History (Updated 03/26/24 @ 09:22 by Amrita Irwin PA-C) Alcohol intake: current Alcohol intake frequency: holidays/special occasions only Comment: hematoma mid chest & broken collar bone Patient Tobacco Use Status: Current everyday Tobacco user Tobacco use type: Cigarette Cigarettes Per Day: 10 Years Smoked: (onset 16yo, 1/2ppd x 47yrs 20+PYH) Second Hand Smoke Exposure: Yes Substance Use Type: Marijuana 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al status: 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 - Patient meets criteria for LDCT for lung cancer screening purposes and is asymptomatic. - Smoking cessation counseling offered. Patients can always call [phone]. - Will arrange for a LDCT scan of the chest for screening purposes at [facility]. - Risks, benefits, and alternatives were discussed in detail and the patient agrees to proceed. - Risks discussed include but are not limited to: radiation exposure, anxiety during testing and while awaiting results, false negatives, false positives and possibility of additional intervention such as further imaging or surgical procedures for benign disease. - Benefits are obviously detection of lung cancer at an early stage which can lead to improved outcomes. - Discussed the importance of screening program compliance with adherence to yearly LDCT scan as scheduled - or sooner interval scans for personalized screening regimen. - Discussed follow up plan. Our office will send a letter discussing results and if needed set up phone call and office visit based on CT findings. - Patient educated on results categorization and the management decisions for suspicious findings potentially found on the screening LDCT scan. Any patient with a Lung RADS score of 3 or 4 will be reviewed by a multidisciplinary team at [facility] to form a plan of action in regards to scan findings. - If further work up is warranted for a suspicious lung finding this will be followed by the Lung Cancer Screening program in conjunction with the Thoracic Surgery Department at [facility]. - A copy of the office note and LDCT will be sent to the patient's PCP - as well as documentation on any associated further plans of care. - Incidental findings on LDCT are the PCP's responsibility. These findings are indicated with an S finding on the LDCT Assessment. A note discussing the findings will be sent to the PCP who is then responsible for further management. - All questions answered.? Coding Level of Care Code Lung Cancer Screening G0296 Diagnoses Nicotine dependence, cigarettes, uncomplicated F17.210
== END 2024-03-26 09:30 | disposition home or self-care (01) ==
PROVIDERS: PCP Internal Medicine; Visit Provider Physician Assistant Medical
DX: F17.210 Nicotine dependence, cigarettes, uncomplicated (principal)
CPT/HCPCS: G0296

== ENCOUNTER 2024-03-26 09:21 | Outpatient (REF) | payer MEDICARE, MEDICAID, SELFPAY | END 2024-03-26 09:22 | disposition home or self-care (01) | LOC: HO.CT 09:21 | PROVIDERS: PCP Internal Medicine; Visit Provider Physician Assistant Medical | DX: Z12.2 Encounter for screening for malignant neoplasm of respiratory organs (principal); F17.210 Nicotine dependence, cigarettes, uncomplicated | CPT/HCPCS: 71271; G0296 ==

== ENCOUNTER 2024-07-12 14:10 | Outpatient (AMB) | payer MEDICARE, MEDICAID, SELFPAY ==
--- NOTE | 2024-07-12 14:14 | MHC.OFFVIS ---
Vital Signs 07/12/24 14:15 Height 5 ft 4 in Weight 189 lb BMI 32.4 BP 122/80 Blood Pressure Location Rt brachial Position Sitting Intake Visit Reasons: ENP-Movement disorder Intake Note: Patient referred by mike parekh for movement disorder Allergies latex Allergy (Mild, Verified 07/12/24 14:16) Rash Medication List - Last Reconciled 07/12/24 by Madelaine Mccarthy MD albuterol sulfate 90 mcg/actuation 2 puffs inhalation Q4-6H PRN alprazolam 0.5 mg PO BID PRN biotin 10,000 mcg PO DAILY calcium carbonate (Calcium 600) 600 mg PO DAILY cholecalciferol (vitamin D3) (Vitamin D3) 25 mcg PO DAILY diphenhydramine HCl (Benadryl Allergy) 25 mg PO BEDTIME PRN escitalopram oxalate 20 mg PO DAILY Farxiga (dapagliflozin propanediol) 5 mg PO DAILY 90 days NS wmtnayhdwrs-jopshpdea-fppdqyme 100-62.5-25 mcg (Trelegy Ellipta) 1 ea inhalation DAILY furosemide 20 mg PO DAILY gabapentin mg PO TID ketoconazole 2% 1 appl topical mesalamine ER 1.5 grams PO DAILY oxcarbazepine 300 mg PO BID phenazopyridine (Pyridium) 100 mg PO TID PRN spironolactone 25 mg PO DAILY valbenazine (Ingrezza) 80 mg PO DAILY varenicline tartrate (Chantix Starting Month Box) PO PER PKG DIR HPI Comments Details: 64y/o with abnormal movements comes for further evaluation . she has h/o major depression and was on aripiprazole and brexpiprazole. she started noticing abnormal mouth , tongue movements about 5 years ago. Her brexpiprazole was stopped, the movements improved initially .But later it worsened and she was tried on autedo which she did not tolerate. She is currently on ingrezza - 80 mg qd and she does not think it helps. she also reports poor balance and gait and has had multiple falls she has h/o seizures and follows up with . Her last seizure was 5 years ago. she also has hypersomnia. [facility] Medical History (Updated 07/12/24 @ 14:51 by Madelaine Mccarthy MD) Gait disturbance Neuroleptic-induced tardive dyskinesia Ascending aorta dilatation Nicotine dependence, cigarettes, uncomplicated Osteoporosis Wrist fracture, right Pulmonary nodules COPD (chronic obstructive pulmonary disease) Bronchiolitis Dyskinesia Complex partial seizure disorder History of seizure (HFpEF) heart failure with preserved ejection fraction Edema of both lower extremities PFO (patent foramen ovale) Anxiety and depression Low back pain Fatty liver Asthma COVID-19 vaccine series started Surgical History History of cholecystectomy History of colonoscopy History of ankle surgery History of loop electrical excision procedure (LEEP) History of esophagogastroduodenoscopy (EGD) Family History Mother Pancreatic cancer Social History Alcohol intake: current Alcohol intake frequency: holidays/special occasions only Comment: hematoma mid chest & broken collar bone Patient Tobacco Use Status: Current everyday Tobacco user Tobacco use type: Cigarette Cigarettes Per Day: 10 Years Smoked: (onset 16yo, 1/2ppd x 47yrs 20+PYH) Second Hand Smoke Exposure: Yes Substance Use Type: Marijuana 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al status: 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 General: patient oriented x3, moves all extremities and no focal motor deficits Cranial nerves: Yes Facial sensation intact/muscles of mastication intact, Yes Equal, round and reactive pupils present, Yes Bilaterally intact EOM present, Yes Nystagmus not present, Yes Normal facial strength present and Yes Midline tongue present Cognition (Neuro): normal cognition Gait exam (Neuro): Shuffling gait present Motor exam (neuro): 5/5 motor strength present throughout and Normal motor muscle tone present throughout Deep tendon reflexes (DTR's): Right triceps reflex intensity grade: 2+, Left triceps reflex intensity grade: 2+, Rt Biceps (C5, C6): 2+, Left biceps reflex intensity grade: 2+, Right brachioradialis reflex intensity grade: 2+, Left brachioradialis reflex intensity grade: 2+, Right patellar reflex intensity grade: 2+ and Left patellar reflex intensity grade: 2+ Coordination: [id number]-am-[id number] test normal Assessment & Plan Assessment & Plan (1) Neuroleptic-induced tardive dyskinesia: Code(s): G24.01 - Drug induced subacute dyskinesia; T43.505A - Adverse effect of unspecified antipsychotics and neuroleptics, initial encounter Category: Medical (2) Gait disturbance: Comment: dyskinesia, polypharmacy Code(s): R26.9 - Unspecified abnormalities of gait and mobility Category: Medical Plan I will evaluate her with MRI brain Continue ingrezza 80mg qd D/c gabapentin ( was gievn for menopausal hot flashes ) to improve balance Clonazepam 0.25mg qhs Orders: Orders MR head/brain wo con Today R25.9 - Unspecified abnormal involuntary movements Comprehensive Met. Panel Today R26.9 - Unspecified abnormalities of gait and mobility Vitamin B12 and Folate Today R26.9 - Unspecified abnormalities of gait and mobility Complete Blood Count Auto Diff Today R26.9 - Unspecified abnormalities of gait and mobility Vitamin D 25-OH (D2 and D3) Today R26.9 - Unspecified abnormalities of gait and mobility Medications: New clonazepam administer 30 minutes before bedtime 0.5 mg PO BEDTIME 30 tabs 2RF Coding Level of Care Code New Pt Level 4 (33922) Complex EM visit Add On G2211 Diagnoses Neuroleptic-induced tardive dyskinesia G24.01; T43.505A Gait disturbance R26.9 AIMS Questionnaire Abnormal Involuntary Movement Scale Muscles or Facial Expressions (movements of forehead, eyebrows, periorbital area, cheeks, including frowning, blinking, smiling, grimacing): 2 - Mild Lips and Perioral Area (puckering, pouting, smacking): 2 - Mild Jaw (biting, clenching, chewing, mouth opening, lateral movement): 3 - Moderate Tongue (rate only increases in movement both in and out of mouth. NOT inability to sustain movement. Darting in and out of mouth): 3 - Moderate Upper-arms, wrists, hands, fingers (Include choreic movements; rapid, objectively purposeless, irregular, spontaneous. Athetoid movements; slow, irregular, complex, serpentine. DO NOT INCLUDE TREMOR: 1 - Minimal, may be extreme normal Lower- legs, knees, ankles, toes (lateral knee movement, foot tapping, heel dropping, foot squirming, inversion and eversion of foot: 1 - Minimal, may be extreme normal Neck, shoulders, hips (rocking, twisting, squirming, pelvic gyrations: 3 - Moderate Severity of abnormal movements overall: 3 - Moderate Incapacitation due to abnormal movements: 3 - Moderate Patient's awareness of abnormal movements: Aware, moderate distress Current problems with teeth and/or dentures?: Yes Are dentures usually worn?: Yes Edentia?: No Do movements disappear in sleep?: Yes AIMS Score: 27
[2024-07-12 14:15] VITALS: BP 122/80; BMI 32.4
--- OUTSIDE RECORDS SUMMARY | 2024-07-12 16:18 | XMS_ITS | Continuity of Care Document ---
Author Organization [facility] Teddy lt Address [address] [place] [address]- Care Team Providers Care Lacquer Machine Feeder Name Role Phone Heavenly STEARNS, Charbel Pemberton Primary Care Physician [place] [facility] [place](s): 05/21/24 - 06/20/24 [facility] [address], [place] [id number] Encounter Type: Triage Allergies, Adverse Reactions, Alerts Substance Criticality Severity Reaction Reaction Severity Status thiazide diuretics hypercalcemia Active angiotensin converting enzyme inhibitors ANKLE SWELLING Active Latex RASH Active Immunizations Given and Recorded Vaccine Date Status Refusal Reason pneumococcal 20-valent conjugate vaccine 10/18/22 Given [id number] 12y+ bivalent booster vax 05/31/22 Recorded tetanus/diphtheria/pertussis, acel(Tdap) 1 09/05/21 Given tetanus/diphtheria/pertussis, acel(Tdap) 03/20/12 Given SARS-CoV-2 mRNA (usolbjt-dvac-fatsf) vax 09/05/21 Given SARS-CoV-2 (COVID-19) mRNA BNT-162b2 vac 2 05/04/21 Given influenza virus vaccine, inactivated 03/02/21 Bob rded influenza virus vaccine, inactivated 04/20/20 Give n influenza virus vaccine, inactivated 02/25/19 Give n influenza virus vaccine, inactivated 04/06/18 Give n influenza virus vaccine, inactivated 3 02/20/17 Gi mari influenza virus vaccine, inactivated 03/06/16 Give n influenza virus vaccine, inactivated 03/03/14 Give n influenza virus vaccine, inactivated 02/04/13 Give n influenza virus vaccine, inactivated 02/04/13 Give n SARS-CoV-2 (COVID-19) mRNA-1273 vaccine 12/07/20 R ecorded SARS-CoV-2 (COVID-19) mRNA-1273 vaccine 11/03/20 R ecorded pneumococcal 23-valent vaccine 05/04/19 Recorded pneumococcal 23-valent vaccine 06/21/16 Given zoster vaccine, inactivated 09/21/18 Recorded hepatitis B adult vaccine 04/06/18 Given hepatitis B adult vaccine 01/15/18 Given Hepatitis A Adult Vaccine 01/15/18 Given FluLaval (oldterm) 03/20/12 Given FluLaval (oldterm) 4 02/21/10 Given influ virus vac, H1N1, inactive(oldterm) 5 02/20/11 Given Influenza Virus Vaccine (oldterm) 02/14/09 Given Pneumococcal Vaccine (oldterm) 06/18/06 Given tetanus-diphtheria toxoids (Td) 12/11/05 Given 1Result Comment: [facility]-[id number] 2Result Comment: [facility]-[id number] 3Result Comment: [02/20/2017] [facility] [id number] 4Admin Note: Zeenoh CASSIA 5Admin Note: historical Medications aspirin 81 mg oral delayed release tablet 81 mg, 1, tablet, By Mouth, Daily, Maintenance, 05/27/22 2:27:00 PM EST, Partial fill upon patient request if the prescription is for a schedule II opioid drug. Start Date: 05/27/22 Status: Ordered Repeat number: 1 Benadryl 25 mg oral capsule 3 capsule = 75 mg, By Mouth, Daily at bedtime, and 1 capsule in the AM as needed, 0 Refills, Maintenance, 09/05/21 8:47:00 AM EDT, Capsule, Partial fill upon patient request if the prescription is fora schedule II opioid drug. Start Date: 09/05/21 Status: Ordered Repeat number: 1 Compression Stockings See Instructions, # 4 pair, Refills 2, Tot. Refills 2, Maintenance, calf length 20-30 mm Hg dx: symptomatic varicose veins, 01/09/18 9:40:03 AM EDT, Compound Start Date: 01/09/18 Status: Ordered Quantity: 4.0 Unit: pair Repeat number: 3 escitalopram 20 mg oral tablet 1 tablet = 20 mg, By Mouth, Daily, Maintenance, 05/27/22 2:39:00 PM EST, Tablet, Partial fill upon patient request if the prescription is for a schedule II opioid drug. Start Date: 05/27/22 Status: Ordered Repeat number: 1 furosemide 20 mg oral tablet 1, tablet, By Mouth, Daily, # 90 tablet, Refills 3, Maintenance, 04/29/23 10:21:00 AM EST, Route toPharmacy Electronically, [id number], 163, cm, 04/24/23 11:22:00 EST, Height, 86.5, kg, 05/27/22 12:50:00 EST, Dry Weight Start Date: 04/29/23 Status: Ordered Quantity: 90.0 Unit: tablet Repeat number: 1 gabapentin 300 mg oral capsule 600 mg, 2, capsule, By Mouth, 2 times a day, Refills 0, Maintenance, 05/27/22 1:51:00 AM EST, Partialfill upon patient request if the prescription is for a schedule II opioid drug. Start Date: 05/27/22 Status: Ordered Repeat number: 1 Ingrezza 80 mg oral capsule 30 capsule, 0 Refill(s), 0 Refills, 01/14/23 7:34:00 AM EDT, Partial fill upon patient request if the prescription is for a schedule II opioid drug. Start Date: 01/14/23 Status: Ordered Repeat number: 1 Jardiance 10 mg oral tablet 1 tablet = 10 mg, By Mouth, Daily in AM, 0 Refills, Maintenance, 01/10/22 8:58:00 AM EDT, Tablet, Partial fill upon patient request if the prescription is for a schedule II opioid drug. Start Date: 01/10/22 Status: Ordered Repeat number: 1 ketoconazole 2% topical cream 0 Refills, Maintenance, 04/24/23 11:48:00 AM EST, Partial fill upon patient request if the prescription is for a schedule II opioid drug. Start Date: 04/24/23 Status: Ordered Repeat number: 1 mesalamine 0.375 g oral capsule, extended release 4 capsule = 1.5 Gm, By Mouth, Daily in AM, 0 Refills, Maintenance, 05/27/22 1:50:00 AM EST, CR Capsule, Partial fill upon patient request if the prescription is for a schedule II opioid drug. Start Date: 05/27/22 Status: Ordered Repeat number: 1 Nicotine = 21 mg, Topically, Daily, 0 Refills, Maintenance, 05/30/22 8:55:00 AM EST, Patch, Partial fill uponpatient request if the prescription is for a schedule II opioid drug. Start Date: 05/30/22 Status: Ordered Repeat number: 1 OXcarbazepine 300 mg oral tablet 300 mg, 1, tablet, By Mouth, 2 times a day, Refills 0, Maintenance, 07/15/19 10:24:00 AM EST Start Date: 07/15/19 Status: Ordered Repeat number: 1 Oyster [place] 500 mg oral tablet 1 tablet = 500 mg, By Mouth, 2 times a day, Maintenance, 05/27/22 2:28:00 PM EST, Partial fill upon patient request if the prescription is for a schedule II opioid drug. Start Date: 05/27/22 Status: Ordered Repeat number: 1 spironolactone 25 mg oral tablet 1, tablet, By Mouth, Daily, # 30 tablet, Refills 2, Maintenance, 01/29/24 9:07:00 AM EDT, Route to Pharmacy Electronically, [facility]-, 163, cm, 04/24/23 11:22:00 EST, Height, 86.5, kg, 05/27/22 12:50:00 EST, Dry Weight Start Date: 01/29/24 Status: Ordered Quantity: 30.0 Unit: tablet Repeat number: 1 Trelegy Ellipta inhalation powder 1 puffs, Inhalation, Daily, at the same time every day, 0 Refills, Maintenance, 05/27/22 1:50:00 AM EST, Powder, Partial fill upon patient request if the prescription is for a schedule II opioid drug. Start Date: 05/27/22 Status: Ordered Repeat number: 1 Ventolin HFA 108 mcg/inh inhalation aerosol with adapter 2 puffs, Inhalation, Every 4 hours, PRN NEEDED FOR WHEEZING, # 18 Gm, 11 Refills, Maintenance, 05/21/24 10:24:00 AM EST, [facility]-, 163, cm, 04/24/23 11:22:00 EST, Height, 86.5, kg, 05/27/22 12:50:00 EST, Dry Weight Start Date: 05/21/24 Status: Ordered Quantity: 18.0 Unit: g Repeat number: 1 Vitamin D3 1000 intl units oral capsule 1 capsule = 25 mcg, By Mouth, Daily, 0 Refills, Maintenance, 08/24/20 11:00:00 AM EDT, Partial fill upon patient request if the prescription is for a schedule II opioid drug. Start Date: 08/24/20 Status: Ordered Repeat number: 1 Problem List Condition Confirmation Course Effective Dates Status Health Status Informant Arnold-Chiari malformation 1 Confirmed Active Mild ascending aorta dilatation Confirmed Active Benign Essential Hypertension Confirmed Active Chronic dermatitis Confirmed 06/20/09 Active Chronic diastolic heart failure Confirmed Active Cigarette smoker Confirmed Active Closed right trimalleolar fracture Confirmed Active Complex partial seizures DR Emerson Confirmed 12/01/18 Active Alcohol use Confirmed Active Low serum vitamin D Confirmed 07/15/19 Active Diabetes mellitus Confirmed Active Ectatic thoracic aorta 2 Confirmed 11/12/16 Active Xiphoiditis Confirmed Active Lumbar disc disease l4-5 xray 2018 Confirmed Active Diverticulosis, sigmoid 3 Confirmed Active Abnormal electrocardiogram 4 Confirmed Active Essential thrombocytosis Confirmed Active Family history of colon canceruncle colonoscopy /polyps brother akatav8673/2021 5 Confirmed Active GERD (gastroesophageal reflux disease) Confirmed Active Gastroesophageal reflux disease without esophagitis egd 2020 Confirmed Active Generalized anxiety disorder Confirmed Active History of compression fracture of vertebral column/endocrinology reclast 2021 Confirmed Active History of cholecystectomy Confirmed 11/26/21 Active Hyperlipemia Confirmed Active Periorbital dermatitis Confirmed Active Asthma, mild persistent/ ICS intolerant 6, 7 Confirmed Active Mixed simple and mucopurulent chronic bronchitis 8 Confirmed Active Multiple lung nodules /tree bud [facility] 9, 10, 11, 12 Confirmed Active Obese class I Confirmed Active Osteoporosis/Endocrinol ogy Confirmed Active Depression, major, recurrent, in remission panic agoraphobia 13 Confirmed 07/21/07 Active Fatty liver 14, 15, 16, 17, 18 Confirmed 01/10/18 Active Tardive dyskinesia Confirmed Active Tobacco use Confirmed Active 1prior mri brain 2monitor 3colonoscopy FE 16 4QS lead three chronic 5uncle 6intolerant ICS 7mild internmt vs mild persistent; depends upon time of year 8Per pulmonology notes. 9stable no f/u 10stable 2016 11stable recheck 12 mnths 12stable;recheck 12months 13in therapy 14neg ama,sma 15HEP A,B neg 16normal AAT,iron,cerukloplasmin 17hepm c neg 18normal ggt Social History Social History Type Response Smoking Status 10 or more cigarette s (1/2 pack or more)/day in last 30 days; Type: Cigarettes; Previous treatment: Nicotine replacement; Other: 1 ppd; Tobacco use times per day: 1 ppd- previously smoked less . quit several times in between; Started at age: 18; entered on: 05/11/19 Sex Sex Representation Female (finding) Patient Care team information Care Team Personnel Name: Karina BIOMEDICAL ENGINEERING TECHNICIAN, Kirstine Fletcher Position: [facility] PCO Associate Professional Member Role: Lifetime Consulting Provider Address: [address] [place] [id number] Telecom: Name: Charbel Burdick MD Position: [facility] Physician - Primary Care Member Role: PCP Address: [address] [place] [id number] Telecom: Name: Rosmery Schofield RN Position: [facility] AMB Nurse Member Role: Primary Care Nurse Care Team Related Persons Name: DUSTY JIMENEZ OR ANUP Name: ANUP JIMENEZ Insurance Providers Guarantor name: DIDIER JIMENEZ Health Plan Information #: 1 Payer: MEDICARE PART B OUTPT Member Number: NA Policy Number: NA Group Number: NA Health Plan Information #: 2 Payer: [facility] Member Number: NA Policy Number: NA Group Number: NA
--- OUTSIDE RECORDS SUMMARY | 2024-07-12 16:18 | XMS_ITS | Patient Health Record ---
Author Organization [facility] Address [address] [place] [id number] Care Team Providers Care Social Contact Worker Name Role Phone Lala Myers Primary Care Provider Angelito Vergara Jr Unavailable ALLERGIES No Known Allergies REASON FOR REFERRAL No Information MEDICATIONS Medication SIG (Take, Route, Frequency, Duration) Notes Start Date End Date Status MiraLax (colon prep) 8.3 ounce ((238) grams mixed with Gatorade or Crystal Light orally begin at 5:00 p.m. the day before the procedure for 1 day 11/01/2020 Active Ingrezza 80 MG Orally Activ e Potassimin Active Furosemide 20 MG Oral for 60 A ctive Escitalopram Oxalate 20 MG TAKE 1 TABLET BY MOUTH DAILY Oral for 90 Active Trelegy Ellipta 100-62.5-25 MCG/ACT Inhalation for 30 Active Gabapentin 600 MG TAKE 1 TABLET BY CHUYITA TH EVERYDAY AT BEDTIME Oral for 90 Active Anoro Ellipta 62.5-25 MCG/INH INHALE 1 PUFF BY MOUTH DAILY Inhalation for 60 Active Jardiance 10 MG Oral for 36 Ac tive OXcarbazepine 300 MG TAKE 1 TABLET BY MO [facility] TWICE A DAY Oral for 90 Active ALPRAZolam 0.5 MG (Schedule IV Drug) T MASOOD 1 TO 2 TABLETS TWICE A DAY NEEDED Oral for 90 Active Aspirin 81 81 MG 1 tablet Orally Once a day for 30 day(s) Active Biotin Active Vitamin D Active Mesalamine ER 0.375 GM TAKE 4 CAPSULES B Y MOUTH IN THE MORNING ONCE A DAY for 30 Active IMMUNIZATIONS Vaccine Route Administration Date Status Comme nts Influenza Unknown 03/01/2020 Administered Influenza Unknown 04/18/2022 Administered Influenza Unknown 07/28/2023 Refused SOCIAL HISTORY Tobacco Use: Social History Observation Description Date Details (start date - stop date) Current Smoker NA - NA Sex Assigned At : Social History Observation Description Sex Assigned At Unknown Tobacco Use/Smoking Question Answer Notes Patient is a current smoker When did you start smoking? 18 years old How often do you smoke cigarettes? every day How many cigarettes a day do you smoke? 11-20 How soon after you wake up do you smoke your fir st cigarette? within 5 minutes Are you interested in quitting? Not ready to krystal t Alcohol Screen Question Answer Notes Did you have a drink contain ing alcohol in the past year? Yes How often did you have a dri nk containing alcohol in the past year? Never (0 point) How many drinks did you have on a typical day when you were drinking in the past year? 1 or 2 drinks (0 point) How often did you have 6 or more drinks on one occasion in the past year? Never (0 point) Points 0 Interpretation Negative PROBLEMS Problem Type ICD Code Onset Dates Problem Status W/U Status Risk SNOMED Code Notes Problem Colon cancer screening (Z12.11) Active confirmed 502170688 Problem Dysphagia (R13.10) Active confirmed Dys phagia (27349257) Problem Gastroesophageal reflux disease without esophagitis (K21.9) Active confirmed 549649439 Problem GERD (gastroesophageal reflux disease) (K21.9) Active confirmed Gastroesophagea l reflux disease (806405495) Problem Dysphagia, unspecified type (R13.10) Active confirmed 57725889 Problem Diarrhea, unspecified type (R19.7) Active confirmed 95711307 Problem Gastroesophageal reflux disease, unspecified whether esophagitis present (K21.9) Active confirmed 203168247 VITAL SIGNS Temperature 97.7 degrees Fahrenheit 07/28/2023 Blood pressure diastolic 00 mm Hg 07/28/2023 Height 64.5 in 07/28/2023 Blood pressure systolic 000 mm Hg 07/28/2023 Weight 182 lb 8 oz lbs 07/28/2023 BMI 30.84 kg/m2 07/28/2023 Encounters Encounter Location Date Provider Diagnosis [facility] [address] [place] [address] 07/28/2023 Angelito Adler Jr Gastroesophageal reflux disease without esophagitis K21.9 and Diarrhea, unspecified type R19.7 ASSESSMENTS Encounter Date Diagnosis Assessment Notes Treatment Notes Treatment Clinical Notes 07/28/2023 Gastroesophageal ref lux disease without esophagitis (ICD-10 - K21.9) COVID-19 vaccines - what to expect material was printed 07/28/2023 Diarrhea, unspecifie d type (ICD-10 - R19.7) PLAN OF TREATMENT Future Test Test Name Order Date UPPER GI ENDOSCOPY 11/01/2020 COLONOSCOPY 11/01/2020 Next Appt Details Provider Name:Angelito Deena frausto Jr, 07/28/2024 09:40:00 AM, [address] [place] [address], [address], [place], [address], Insurance Providers Payer Name Payer Address Payer Phone Subscriber Number Group Number Insured Name Patient Relationship to Insured Coverage Start Date Coverage End Date MEDICARE OF [place] [address] [place] [address] [phone] [id number] DIDIER JIMENEZ Self - patient is the insured MEDICAID OF [facility] [address] [place] [address] [id number] DIDIER JIMENEZ Self - patient is the insured MEDICAL (GENERAL) HISTORY Medical History History ICD Code Tardive dyskinesia Anxiety/depression asthma Seizure disorder GERD gallstones fatty liver diverticulosis memory loss lumbar disc disease lung nodule - multiple irritable bowel syndrome Hiatal hernia Ascending Aorta Dilatation Arnold- Chiari malformation Chronic diastolic heart failure Agorophobia Essential Thrombocytosis Vitamin D deficiency Prolonged QT interval Subclinical Hypothyroidism Colonoscopy, 12/06, mild active colitis, current therapy mesalamine. EGD 12/06, no H. pylori or Ruelas's esop hagus. Surgical History Surgery Date(Month/Year) ORIF ankle 06/10 Laparoscopic cholecystectomy 12/07
--- OUTSIDE RECORDS SUMMARY | 2024-07-12 16:18 | XMS_ITS ---
Author Organization [facility] Address [address] [place] [address] Care Team Providers Care Loss Claim Clerk Name Role Phone Lala Myers Primary Care Provider UnavailAngelito Kent Jr Unavailable [phone] ALLERGIES No Known Allergies REASON FOR VISIT Patient presents today for gerd MEDICATIONS Medication SIG (Take, Route, Frequency, Duration) Notes Start Date End Date Status MiraLax (colon prep) 8.3 ounce ((238) grams mixed with Gatorade or Crystal Light orally begin at 5:00 p.m. the day before the procedure for 1 day 11/01/2020 Active Furosemide 20 MG Oral for 60 A ctive Trelegy Ellipta 100-62.5-25 MCG/ACT Inhalation for 30 Active Mesalamine ER 0.375 GM TAKE 4 CAPSULES B Y MOUTH IN THE MORNING ONCE A DAY for 30 Active Jardiance 10 MG Oral for 36 Ac tive Vitamin D Active Ingrezza 80 MG Orally Activ e ALPRAZolam 0.5 MG (Schedule IV Drug) T MSAOOD 1 TO 2 TABLETS TWICE A DAY NEEDED Oral for 90 Active Aspirin 81 81 MG 1 tablet Orally Once a day for 30 day(s) Active Biotin Active Potassimin Active Escitalopram Oxalate 20 MG TAKE 1 TABLET BY MOUTH DAILY Oral for 90 Active Gabapentin 600 MG TAKE 1 TABLET BY CHUYITA TH EVERYDAY AT BEDTIME Oral for 90 Active Anoro Ellipta 62.5-25 MCG/INH INHALE 1 PUFF BY MOUTH DAILY Inhalation for 60 Active OXcarbazepine 300 MG TAKE 1 TABLET BY MO UTH TWICE A DAY Oral for 90 Active IMMUNIZATIONS Vaccine Route Administration Date Status Comme nts Influenza Unknown 07/28/2023 Refused SOCIAL HISTORY Tobacco [...] Never (0 point) Points 0 Interpretation Negative VITAL SIGNS Temperature 97.7 degrees Fahrenheit 07/28/19 24 Blood pressure systolic 000 mm Hg 07/28/19 24 Blood pressure diastolic 00 mm Hg 024 Height 64.5 in 07/28/2023 Weight 182 lb 8 oz lbs 07/28/2023 BMI 30.84 kg/m2 07/28/2023 Encounters Encounter Location Date Provider Diagnosis [facility] [address] [place] [address] 07/28/2023 Angelito Adler Jr Gastroesophageal reflux disease without esophagitis K21.9 and Diarrhea, unspecified type R19.7 ASSESSMENTS Encounter Date Diagnosis Assessment Notes Treatment Notes Treatment Clinical Notes 07/28/2023 Gastroesophageal ref lux disease without esophagitis (ICD-10 - K21.9) COVID-19 vaccines - what to expect material was printed 07/28/2023 Diarrhea, unspecifie d type (ICD-10 - R19.7) PLAN OF TREATMENT Treatment Notes Assessment Notes Gastroesophageal reflux dise ase without esophagitis COVID-19 vaccines - what to expect material was printed Next Appt Details Follow Up: 1 Year, Reason: Provider Name:Angelito frausto Jr, 07/28/2024 09:40:00 AM, [address], [address], [place], [address],
--- OUTSIDE RECORDS SUMMARY | 2024-07-12 16:19 | XMS_ITS ---
Author Organization [facility] Address [address] [place] [address] Care Team Providers Care Driller Brake Lining Name Role Phone Lala Myers Primary Care Provider Unavailab Angelito Gilbert Jr REASON FOR VISIT Patient presents today for gerd Encounters Encounter Location Date Provider Diagnosis [facility] [address] [place] [address] 04/21/2023 Angelito Adler Jr PLAN OF TREATMENT Next Appt Details Provider Name:Angelito frausto Jr, 07/28/2024 09:40:00 AM, [address], [address], [place], [address],
== END 2024-07-12 15:02 | disposition home or self-care (01) ==
PROVIDERS: PCP Internal Medicine; Visit Provider Psychiatry & Neurology Neurology
DX: G24.01 Drug induced subacute dyskinesia (principal); T43.505A Adverse effect of unspecified antipsychotics and neuroleptics, initial encounter; R26.9 Unspecified abnormalities of gait and mobility
CPT/HCPCS: 99204; G2211

== ENCOUNTER → 2024-07-12 14:10 | Outpatient (BNVA) | payer MEDICARE, MEDICAID, SELFPAY | PROVIDERS: PCP Internal Medicine; Visit Provider Psychiatry & Neurology Neurology | DX: G24.01 Drug induced subacute dyskinesia (principal); T43.505A Adverse effect of unspecified antipsychotics and neuroleptics, initial encounter; R26.9 Unspecified abnormalities of gait and mobility | CPT/HCPCS: 99202 ==

== ENCOUNTER 2024-07-21 07:35 | Outpatient (REF) | payer MEDICARE, MEDICAID, SELFPAY ==
--- NOTE | ~2024-07-21 | MR_ITS ---
EXAMINATION: MR BRAIN WITHOUT CONTRAST CLINICAL INFORMATION: Unspecified abnormal involuntary movements. COMPARISON: December 01, 2018. TECHNIQUE: MRI of the brain was obtained using routine sequences without contrast. FINDINGS: No susceptibility signal abnormality within the substancia nigra. No restricted diffusion. No acute intracranial hemorrhage, mass effect, midline shift, hydrocephalus or herniation. Cortes-white matter differentiation is normal. Posterior cranial fossa contents demonstrated no acute intracranial hemorrhage or mass effect. Flow-void signal within the main vessels is normal. Sellar/suprasellar region is normal. Craniocervical junction is intact and normal. Prominence of the extra-axial CSF spaces cerebral sulci and ventricles likely mild central volume loss. MR/MR head/brain wo con IMPRESSION: No acute brain abnormality. No imaging findings to correspond to Parkinson's disease. Electronically signed by: Rocco Pryor MD 07/21/2024 03:09 PM FANNY
--- OUTSIDE RECORDS SUMMARY | 2024-07-21 07:38 | XMS_ITS | Patient Health Record ---
Author Organization [facility] Address [address] [place] [address] Care Team Providers Care Battery Charger Name Role Phone Lala Myers Primary Care Provider Angelito Vergara Jr Unavailable Allergies No Known Allergies Reason For Referral No Information Medications Medication SIG (Take, Route, Frequency, Duration) Notes [...] 300 MG TAKE 1 TABLET BY MO [facility] TWICE A DAY Oral for 90 [...] MORNING ONCE A DAY for 30 Active Immunizations Vaccine Route Administration Date Status Comme nts Influenza Unknown 03/01/2020 Administered Influenza Unknown 04/18/2022 Administered Influenza Unknown 07/28/2023 Refused Social History Tobacco Use: Social History Observation Description Date Details (start date - stop date) Current Smoker NA - NA Tobacco Use/Smoking Question Answer Notes Patient is [...] Never (0 point) Points 0 Interpretation Negative Problems Problem Type SNOMED Code ICD Code Onset Dates Problem Status W/U Status Risk Notes Problem 759923839 Colon cancer screening (Z12.11) Active confirmed Problem Dysphagia (04912852) Dysphagia (R13.10) Active confirmed Problem 267110227 Gastroesophageal reflux disease without esophagitis (K21.9) Active confirmed Problem Gastroesophageal reflux disease (060433638) GERD (gastroesophageal reflux disease) (K21.9) Active confirmed Problem 37316050 Dysphagia, unspecified type (R13.10) Active confirmed Problem 13484288 Diarrhea, unspecified type (R19.7) Active confirmed Problem 132154156 Gastroesophageal reflux disease, unspecified whether esophagitis present (K21.9) Active confirmed Vital Signs Temperature 97.7 degrees Fahrenheit 07/28/2023 Blood pressure diastolic 00 mm Hg 07/28/2023 Height 64.5 in 07/28/2023 Blood pressure systolic 000 mm Hg 07/28/2023 Weight 182 lb 8 oz lbs 07/28/2023 BMI 30.84 kg/m2 07/28/2023 Encounters Encounter Location Date Provider Diagnosis [facility] [address] [place] [phone] 07/28/2023 Angelito Adler Jr Gastroesophageal reflux disease without esophagitis K21.9 and Diarrhea, unspecified type R19.7 Assessments Encounter Date Diagnosis (ICD Code) Assessment Notes Treatment Notes Treatment Clinical Notes Section Notes 07/28/2023 Gastroesophageal reflux disease without esophagitis (ICD-10 - K21.9) COVID-19 vaccines - what to expect material was printed Currently, she is doing well. Reflux symptoms are under good control with diet. We discussed diet, lifestyle modifications , and weight management regarding the treatment of reflux. She will continue these measures. Stools are currently formed and she is doing well on mesalamine/Im odium. She will continue her present regimen. Followup in one year. 07/28/2023 Diarrhea, unspecified type (ICD-10 - R19.7) Currently, she is doing well. Reflux symptoms are under good control with diet. We discussed diet, lifestyle modifications , and weight management regarding the treatment of reflux. She will continue these measures. Stools are currently formed and she is doing well on mesalamine/Im odium. She will continue her present regimen. Followup in one year. Plan Of Treatment Future Test Test Name Order Date UPPER GI ENDOSCOPY 11/01/2020 COLONOSCOPY 11/01/2020 Next Appt Details Provider Name:Angelito frausto , 07/28/2024 09:40:00 AM, [address] [place] [address], [address], [place], [address], Insurance Providers Payer Name Payer Address Payer Phone Subscriber Number Group Number Insured Name Patient Relationship to Insured Coverage Start Date Coverage End Date MEDICARE OF [place] [address] [place] [address] [id number] DIDIER JIMENEZ Self - patient is the insured MEDICAID OF [facility] [address] [place] [address] [phone] [id number] DIDIER JIMENEZ Self - patient is the insured Medical (General) History Medical History History ICD Code Tardive dyskinesia [...]
--- OUTSIDE RECORDS SUMMARY | 2024-07-21 07:38 | XMS_ITS ---
Author Organization [facility] Address [address] [facility] [address] [place] [address] Care Team Providers Care Garage Door Technician Name Role Phone Lala Myers Primary Care Provider Angelito Vergara Jr REASON FOR VISIT Patient presents today for gerd Encounters Encounter Location Date Provider Diagnosis [facility] [address] [address] 04/21/2023 Angelito Adler Jr Plan Of Treatment Next Appt Details Provider Name:Angelito frausto Jr, 07/28/2024 09:40:00 AM, [address] [place] [address], Suite [facility], [place], [address], Progress Notes * DIDIER JIMENEZDOB:1960 (64 yo F)Acc No.[id number]:04/21/2023 Progress Notes Patient:?DIDIER JIMENEZ Provider:?Angelito Adler MD :1960???Age:63 Y???Sex:Female D ate:04/21/2023 Address:[address] [place] [address] Pcp:Lala Montalvo Subjective: * Chief Complaints: * ???1. Patient presents today for gerd. * Medical History:? Objective: * Vitals:? Assessment: Plan: * Treatment: * * The named appointment provid er may or may not be the originator of this progress note, and it is not deemed complete until electronically signed by the appointment provider. Sign off status: Pending * Provider:?Angelito Adler MD Date:?1 06/22/2022 Generated for Vishal west/Iris/Phylicia on:?07/21/2024 07:38 AM EST
--- OUTSIDE RECORDS SUMMARY | 2024-07-21 07:38 | XMS_ITS ---
Author Organization [facility] Address [address] [place] [address] Care Team Providers Care Administrative Aide Name Role Phone Lala Myers Primary Care Provider UnavailAngelito Kent Jr Unavailable Allergies No Known Allergies REASON FOR VISIT Patient presents today for gerd Medications Medication SIG (Take, Route, Frequency, Duration) [...] TWICE A DAY Oral for 90 Active Immunizations Vaccine Route Administration Date Status Comme nts Influenza Unknown 07/28/2023 Refused Social History Tobacco [...] Never (0 point) Points 0 Interpretation Negative Vital Signs Temperature 97.7 degrees Fahrenheit 07/28/19 24 Blood pressure systolic 000 mm Hg 07/28/19 24 Blood pressure diastolic 00 mm Hg 024 Height 64.5 in 07/28/2023 Weight 182 lb 8 oz lbs 07/28/2023 BMI 30.84 kg/m2 07/28/2023 Encounters Encounter Location Date Provider Diagnosis [facility] [address] [facility] [address] [place] [phone] 07/28/2023 Angelito Adler Jr Gastroesophageal reflux disease [...] Followup in one year. Plan Of Treatment Treatment Notes Assessment Notes Gastroesophageal reflux dise ase without esophagitis COVID-19 vaccines - what to expect material was printed Next Appt Details Follow Up: 1 Year, Reason: Provider Name:Angelito frausto Jr, 07/28/2024 09:40:00 AM, [address] [facility], [address], [place], [address], Progress Notes * DIDIER JIMENEZDOB:1960 (63 yo F)Acc No.[id number]:07/28/2023 Progress Notes Patient:?JIMENEZ, DIDIER Provider:?Angelito Adler MD :1960???Age:63 Y???Sex:Female D ate:07/28/2023 Address:[address] [place], [place] [phone] Pcp:Lala Montalvo Subjective: * Chief Complaints: * ???1. Patient presents today for gerd. * HPI: ???New symptom(s):? The patient is a 63-year-old woman seen today in followup of gastroesophageal reflux disease and colitis. She has been using mesalamine regularly. She takes this with Imodium. Stools are formed. She has occasional heartburn. There is no diarrhea, dysphagia, hematemesis, or melena. Weight and appetite have been stable. * Medical History:?Tardive dys kinesia, Anxiety/depression, Asthma, Seizure disorder, GERD, Gallstones, Fatty liver, Diverticulosis, Memory loss, Lumbar disc disease, Lung nodule - multiple, Irritable bowel syndrome, Hiatal hernia, Ascending Aorta Dilatation , Arnold- Chiari malformation , Chronic diastolic heart failure , Agorophobia , Essential Thrombocytosis , Vitamin D deficiency, Prolonged QT interval, Subclinical Hypothyroidism , Colonoscopy, 12/06, mild active colitis, current therapy mesalamine., EGD 12/06, no H. pylori or Ruelas's esophagus.. * Surgical History:?ORIF ankle 06/10, Laparoscopic cholecystectomy 12/07. * Hospitalization/Major Diagno stic Procedure:?Denies Past Hospitalization. * Family History:?Father: dece ased.?Mother: , diagnosed with HTN (hypertension).? Mother had thyroid disorder and passed from pancreatic cancer Paternal uncle passed from colon cancer Denies famly hx of liver ds. * Social History:?Tobacco Use:?Tobacco Use/Smoking?Patient is a?current smoker,?When did you start smoking??18 years old ,?How often do you smoke cigarettes??every day,?How many cigarettes a day do you smoke??11-20,?How soon after you wake up do you smoke your first cigarette??within 5 minutes,?Are you interested in quitting??Not ready to quit.?Drugs/Alcohol:?Alcohol Screen?Did you have a drink containing alcohol in the past year??Yes,?How often did you have a drink containing alcohol in the past year??Never (0 point),?How many drinks did you have on a typical day when you were drinking in the past year??1 or 2 drinks (0 point),?How often did you have 6 or more drinks on one occasion in the past year??Never (0 point),?Points?0,?Interpretation?Negative.?Miscellaneous:?Marital status: single. 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 * Medications:?Taking Potassim in , Taking Escitalopram Oxalate 20 MG Tablet TAKE 1 TABLET BY MOUTH DAILY Oral , Taking Gabapentin 600 MG Tablet TAKE 1 TABLET BY MOUTH EVERYDAY AT BEDTIME Oral , Taking Anoro Ellipta 62.5-25 MCG/INH Aerosol Powder Breath Activated INHALE 1 PUFF BY MOUTH DAILY Inhalation , Taking OXcarbazepine 300 MG Tablet TAKE 1 TABLET BY MOUTH TWICE A DAY Oral , Taking ALPRAZolam 0.5 MG Tablet (Schedule IV Drug) TAKE 1 TO 2 TABLETS TWICE A DAY NEEDED Oral , Taking Aspirin 81 81 MG Tablet Delayed Release 1 tablet Orally Once a day, Taking Biotin , Taking Vitamin D , Taking Ingrezza 80 MG Capsule Orally , Taking MiraLax (colon prep) 8.3 ounce ((238) grams mixed with Gatorade or Crystal Light orally begin at 5:00 p.m. the day before the procedure, Taking Trelegy Ellipta 100-62.5-25 MCG/ACT Aerosol Powder Breath Activated Inhalation , Taking Furosemide 20 MG Tablet Oral , Taking Jardiance 10 MG Tablet Oral , Taking Mesalamine ER 0.375 GM Capsule Extended Release 24 Hour TAKE 4 CAPSULES BY MOUTH IN THE MORNING ONCE A DAY , Medication List reviewed and reconciled with the patient * Allergies:?N.K.D.A. Objective: * Vitals:?Wt: 182 lb 8 oz, Ht: 64.5 in, BMI:30.84 Index, BP: 000/00 mm Hg, Temp: 97.7. * Examination: ???General Examination: ???On examination today, she appears well. Skin is anicteric. Lungs are clear. Heart shows regular rate and rhythm. Abdomen is soft without focal masses or tenderness. Extremities are without edema. Assessment: * Assessment: 1.?Gastroesophageal reflux d isease without esophagitis - K21.9 (Primary)?2.?Diarrhea, unspecified type - R19.7? Currently, she is doing well . Reflux symptoms are under good control with diet. We discussed diet, lifestyle modifications, and weight management regarding the treatment of reflux. She will continue these measures. Stools are currently formed and she is doing well on mesalamine/Imodium. She will continue her present regimen. Followup in one year. Plan: * Treatment: * Immunizations:? Influenza (Not administered - Refused: Patient decision) * Procedure Codes:?3017F COLOR ECTAL CA SCREEN DOC REV, G9902 Pt scrn tbco and id as user, G9744 PATIENT NOT ELIG D/T ACTIVE DX HTN, G9745 DOC RSN FOR NOT SCREEN/REC F/U HBP * Preventive Medicine:? ??Counseling:?Care goal follow-up plan:?Above Normal BMI Follow-up?Giving encouragement to exercise,?BMI management provided?Yes.? ??Urinary Incontinence:?Urinary Incontinence?Assessment:?Present,?Plan of care documented:?Yes,?Type of plan of care:?Modification of medications contributing to UI.? * Follow Up:?1 Year * * Sign off status: Completed true * Provider:?Angelito Adler MD Date:?0 07/28/2023 Generated for Vishal west/Iris/eTransmitting on:?07/21/2024 07:37 AM EST History and Physical Notes * HPI (History of Present Illness) Category Sub-Category Detail Notes Category Not es New symptom(s) The patient i s a 63-year-old woman seen today in followup of gastroesophageal reflux disease and colitis. She has been using mesalamine regularly. She takes this with Imodium. Stools are formed. She has occasional heartburn. There is no diarrhea, dysphagia, hematemesis, or melena. Weight and appetite have been stable. Examination Category Sub-Category Detail Notes Category Not es General Examination On exami nation today, she appears well. Skin is anicteric. Lungs are clear. Heart shows regular rate and rhythm. Abdomen is soft without focal masses or tenderness. Extremities are without edema.
[2024-07-21 07:51] LABS: MANUAL DIFF FLAG NO
[2024-07-21 08:18] LABS: Basophils Absolute Auto 0.2 X10*3/uL (0.0-0.2); Basophils Percent Auto 2.2 % (0-2); Eosinophils Absolute Auto 0.4 X10*3/uL (0.0-0.4); Eosinophils Percent Auto 5.4 % (0-4); Hematocrit 47.8 % (37.0-47.0); Imm Gran Abs Auto 0.02 X10*3/uL (0.00-0.03); Imm Gran Pct Auto 0.3 % (0.0-0.4); Lymphocytes Absolute Auto 1.3 X10*3/uL (1.2-4.9); Lymphocytes Percent Auto 16.4 % (20-40); Mean Corpuscular HGB Conc 33.5 g/dl (31.0-35.0); Mean Corpuscular Hemoglobin 29.5 pg (27.0-33.0); Mean Platelet Volume 9.7 fL (9.4-12.3); Monocytes Absolute Auto 0.7 X10*3/uL (0.1-1.2); Neutrophils Absolute Auto 5.1 x10*3/uL (2.0-8.3); Neutrophils Percent Auto 66.7 % (45-73); Platelet Count 499 X10*3/uL (160-400); Red Blood Count 5.43 X10*6/uL (4.20-5.50); Red Cell Distribution Width 14.5 % (11.0-16.0); White Blood Count 7.6 X10*3/uL (4.8-10.8)
[2024-07-21 09:09] LABS: Alanine Aminotransferase 27 U/L (0-31); Alkaline Phosphatase 135 U/L (39-117); Anion Gap 12 (12-20); Aspartate Amino Transferase 23 U/L (5-31); Bilirubin Total 0.2 mg/dL (0.0-1.0); Blood Urea Nitrogen 11 mg/dL (9-16); Calcium 9.5 mg/dL (8.4-10.2); Carbon Dioxide 30 mmol/L (22-29); Chloride 106 mmol/L (96-108); Estimated Glomerular Filt Rate 54; Glucose Random 66 mg/dL (60-115); Potassium 4.2 mmol/L (3.3-5.1); Sodium 144 mmol/L (135-145); Total Protein 7.4 g/dL (6.5-8.0)
[2024-07-21 09:30] LABS: Folate 6.5 ng/mL (> or = 4.0); Vitamin B12 1156 pg/mL (200-900)
== END 2024-07-21 07:36 | disposition home or self-care (01) ==
LOC: HO.MRI 07:35
PROVIDERS: PCP Internal Medicine; Visit Provider Psychiatry & Neurology Neurology
DX: R26.9 Unspecified abnormalities of gait and mobility (principal); R25.9 Unspecified abnormal involuntary movements
CPT/HCPCS: 36415; 70551; 80053; 82306; 82607; 82746; 85025

== ENCOUNTER → 2024-07-21 08:09 | Outpatient (BNV) | payer MEDICARE, MEDICAID, SELFPAY | PROVIDERS: PCP Internal Medicine; Visit Provider Radiology Diagnostic Radiology | DX: R25.9 Unspecified abnormal involuntary movements (principal) | CPT/HCPCS: 70551 ==

== ENCOUNTER 2024-08-04 15:16 | Outpatient (REF) | payer MEDICARE, MEDICAID, SELFPAY | END 2024-08-04 15:17 | disposition home or self-care (01) | LOC: HO.LNP 15:16 | PROVIDERS: Visit Provider Internal Medicine Gastroenterology | DX: Z13.89 Encounter for screening for other disorder (principal) ==

== ENCOUNTER 2024-10-22 10:36 | Outpatient (AMB) | payer MEDICARE, MEDICAID, SELFPAY ==
[2024-10-22 10:52] VITALS: BP 110/82; PULSE 71; BMI 30.4
--- NOTE | 2024-10-22 10:52 | MHC.OFFVIS ---
Vital Signs 10/22/24 10:52 Height 5 ft 4 in Weight 177 lb BMI 30.4 BP 110/82 Blood Pressure Location Lt brachial Position Sitting Pulse 71 Pulse Source Pulse Oximeter Intake Visit Reasons: follow up RESCHED Intake Note: patient presents for follow up MRI and labs done 07/21/24 Wooling Machine Operator Required: No Accompanied by: Self / Same As Patient Allergies latex Allergy (Mild, Verified 10/22/24 11:00) Rash Medication List - Last Reconciled 10/22/24 by Madelaine Mccarthy MD albuterol sulfate 90 mcg/actuation 2 puffs inhalation Q4-6H PRN alprazolam 0.5 mg PO BID PRN biotin 10,000 mcg PO DAILY calcium carbonate (Calcium 600) 600 mg PO DAILY cholecalciferol (vitamin D3) (Vitamin D3) 25 mcg PO DAILY clonazepam 0.25 mg PO BEDTIME diphenhydramine HCl (Benadryl Allergy) 25 mg PO BEDTIME PRN escitalopram oxalate 20 mg PO DAILY Farxiga (dapagliflozin propanediol) 5 mg PO DAILY 90 days NS [id number] 100-62.5-25 mcg (Trelegy Ellipta) 1 ea inhalation DAILY furosemide 20 mg PO DAILY ketoconazole 2% 1 appl topical mesalamine ER 1.5 grams PO DAILY oxcarbazepine 300 mg PO BID phenazopyridine (Pyridium) 100 mg PO TID PRN spironolactone 25 mg PO DAILY valbenazine (Ingrezza) 80 mg PO DAILY varenicline tartrate (Chantix Starting Month Box) PO PER PKG DIR HPI Comments Details: 64y/o with abnormal movements comes for follow up. she took clonazepam for 1month and stopped as she thought it affected her sleep. she has h/o major depression and was on aripiprazole and brexpiprazole. she started noticing abnormal mouth , tongue movements about 5 years ago. Her brexpiprazole was stopped, the movements improved initially .But later it worsened and she was tried on austedo which she did not tolerate. She is currently on ingrezza - 80 mg qd and she does not think it helps. she also reports poor balance and gait and has had multiple falls she has h/o seizures and follows up with . Her last seizure was 5 years ago. she also has hypersomnia. PFSH Medical History Gait disturbance Neuroleptic-induced tardive dyskinesia Ascending aorta dilatation Nicotine dependence, cigarettes, uncomplicated Osteoporosis Wrist fracture, right Pulmonary nodules COPD (chronic obstructive pulmonary disease) Bronchiolitis Dyskinesia Complex partial seizure disorder History of seizure (HFpEF) heart failure with preserved ejection fraction Edema of both lower extremities PFO (patent foramen ovale) Anxiety and depression Low back pain Fatty liver Asthma COVID-19 vaccine series started Surgical History History of cholecystectomy History of colonoscopy History of ankle surgery History of loop electrical excision procedure (LEEP) History of esophagogastroduodenoscopy (EGD) Family History Mother Pancreatic cancer Social History Alcohol intake: current Alcohol intake frequency: holidays/special occasions only Comment: hematoma mid chest & broken collar bone Patient Tobacco Use Status: Current everyday Tobacco user Tobacco use type: Cigarette Cigarettes Per Day: 10 Years Smoked: (onset 16yo, 1/2ppd x 47yrs 20+PYH) Second Hand Smoke Exposure: Yes Substance Use Type: Marijuana 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al status: 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 Physical Exam Vital Signs: Last Vital Signs Pulse 71 10/22/24 10:52 BP 110/82 10/22/24 10:52 BMI result Body Mass Index 30.4 Const Orientation/consciousness: patient oriented x3 Eyes Pupils: Equal, round and reactive pupils present Neuro Other: severe lower jaw, tongue movements Truncal rocking movements Gait- off balance , narrow based Decreased facial expression and blink speech - slurred. General: patient oriented x3, moves all extremities and no focal motor deficits Cranial nerves: Yes Facial sensation intact/muscles of mastication intact, Yes Equal, round and reactive pupils present, Yes Bilaterally intact EOM present, Yes Nystagmus not present, Yes Normal facial strength present and Yes Midline tongue present Cognition (Neuro): normal cognition Gait exam (Neuro): Shuffling gait present Motor exam (neuro): 5/5 motor strength present throughout and Normal motor muscle tone present throughout Deep tendon reflexes (DTR's): Right triceps reflex intensity grade: 2+, Left triceps reflex intensity grade: 2+, Rt Biceps (C5, C6): 2+, Left biceps reflex intensity grade: 2+, Right brachioradialis reflex intensity grade: 2+, Left brachioradialis reflex intensity grade: 2+, Right patellar reflex intensity grade: 2+ and Left patellar reflex intensity grade: 2+ Coordination: [id number] test normal Assessment & Plan Assessment & Plan (1) Neuroleptic-induced tardive dyskinesia: Code(s): G24.01 - Drug induced subacute dyskinesia; T43.505A - Adverse effect of unspecified antipsychotics and neuroleptics, initial encounter Category: Medical (2) Gait disturbance: Comment: dyskinesia, polypharmacy Code(s): R26.9 - Unspecified abnormalities of gait and mobility Category: Medical Plan MRI Brain - normal Labs - normal Continue ingrezza 80mg qd D/c gabapentin ( was given for menopausal hot flashes ) to improve balance Restart Clonazepam 0.25mg qhs Medications: New clonazepam administer 30 minutes before bedtime 0.25 mg PO BEDTIME 30 tabs 1RF Coding Level of Care Code Est Pt Level 4 (33245) Diagnoses Neuroleptic-induced tardive dyskinesia G24.01; T43.505A Gait disturbance R26.9
--- OUTSIDE RECORDS SUMMARY | 2024-10-22 11:25 | XMS_ITS ---
Author Organization [facility] Address [address] [place] [address] Care Team Providers Care Sider Name Role Phone Charbel Burdick MD Primary Care Provider Angelito Franz Jr Unavailable [phone] Allergies No Known Allergies REASON FOR VISIT [...] 07/28/2023 Encounters Encounter Location Date Provider Diagnosis [facility] [address] [address] 07/28/2023 Angelito Adler Jr Gastroesophageal reflux disease [...] 1 Year, Reason: Provider Name:Angelito frausto Jr, 08/01/2025 10:20:00 AM, [address] [place] [address], [address], [place], [address], Progress Notes * DIDIER JIMENEZDOB:1960 (63 yo F)Acc No.[id number]:07/28/2023 Progress Notes Patient:?JIMENEZ, DIDIER Provider:?Angelito Adler MD :1960???Age:63 Y???Sex:Female D ate:07/28/2023 Address:[address] [place], [place] [id number] Pcp:Lala Montalvo Subjective: * Chief Complaints: * [...] Provider:?Angelito Adler MD Date:?0 07/28/2023 Generated for Vishla west/Iris/eTransmitting on:?10/22/2024 11:25 AM EDT History and Physical Notes * HPI (History [...]
== END 2024-10-22 11:36 | disposition home or self-care (01) ==
LOC: HO.HSMS 10:37
PROVIDERS: PCP Internal Medicine; Visit Provider Psychiatry & Neurology Neurology
DX: G24.01 Drug induced subacute dyskinesia (principal); T43.505A Adverse effect of unspecified antipsychotics and neuroleptics, initial encounter; R26.9 Unspecified abnormalities of gait and mobility
CPT/HCPCS: 99214

== ENCOUNTER → 2024-10-22 10:36 | Outpatient (BNVA) | payer MEDICARE, MEDICAID, SELFPAY | PROVIDERS: PCP Internal Medicine; Visit Provider Psychiatry & Neurology Neurology | DX: G24.01 Drug induced subacute dyskinesia (principal); R26.9 Unspecified abnormalities of gait and mobility; T43.505A Adverse effect of unspecified antipsychotics and neuroleptics, initial encounter | CPT/HCPCS: 99212 ==

== ENCOUNTER → 2024-11-22 07:55 | Outpatient (REF) | payer MEDICARE, MEDICAID, SELFPAY ==
--- OUTSIDE RECORDS SUMMARY | 2024-11-22 07:58 | XMS_ITS | Patient Health Record ---
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 the day before the procedure for 1 day 11/01/2020 Active Ingrezza 80 MG Orally Activ e Vitamin D Active Loperamide HCl 1 MG/7.5ML 15 mL Orally F our times a day 07/28/2024 Active Biotin Active Aspirin 81 81 MG 1 tablet Orally Once a day for 30 day(s) Active Mesalamine ER 0.375 GM 4 capsules in the morning Orally Once a day for 30 days 07/28/2024 Active ALPRAZolam 0.5 MG (Schedule IV Drug) T MASOOD 1 TO 2 TABLETS TWICE A DAY NEEDED Oral for 90 Active OXcarbazepine 300 MG TAKE 1 TABLET BY MO UTH TWICE A DAY Oral for 90 Active Anoro Ellipta 62.5-25 MCG/INH INHALE 1 PUFF BY MOUTH DAILY Inhalation for 60 Active Mesalamine ER 0.375 GM TAKE 4 CAPSULES B Y MOUTH IN THE MORNING ONCE A DAY for 30 Active Jardiance 10 MG Oral for 36 Ac tive Furosemide 20 MG Oral for 60 A ctive Immunizations Vaccine Route Administration Date Status Comme [...] Problem Status W/U Status Risk Notes Problem 924847708 Colon cancer screening (Z12.11) Active confirmed Problem Dysphagia (68131395) Dysphagia (R13.10) Active confirmed Problem 585567708 Gastroesophageal reflux disease without esophagitis (K21.9) Active confirmed Problem Gastroesophageal reflux disease (384481332) GERD (gastroesophageal reflux disease) (K21.9) Active confirmed Problem 16943437 Dysphagia, unspecified type (R13.10) Active confirmed Problem 23882059 Diarrhea, unspecified type (R19.7) Active confirmed Problem 449247431 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) Active confirmed Problem 450242037 Gastroesophageal reflux disease, unspecified whether esophagitis present (K21.9) Active confirmed Vital Signs Temperature 96.9 degrees Fahrenheit 07/28/2024 Blood pressure diastolic 01 mm Hg 07/28/2024 Height 64.5 in 07/28/2024 Blood pressure systolic 001 mm Hg 07/28/2024 Weight 180 lbs 07/28/2024 BMI 30.42 kg/m2 07/28/2024 Encounters Encounter Location Date Provider Diagnosis [facility] 10 [facility] [address] [place] [phone] 07/28/2024 Angelito Adler Jr Indeterminate colitis K52.3 [facility] [address] [place] [address] 08/04/2024 Angelito Adler Jr Assessments Encounter Date Diagnosis (ICD Code) Assessment Notes Treatment Notes Treatment Clinical Notes Section Notes 07/28/2024 Indeterminate colitis (ICD-10 - K52.3) We discussed colitis today. We recommended she continue mesalamine, and this will be refilled. She can increase her Imodium usage to 2-3 times per day. Stool testing will be obtained. She will let us know how she is doing in a month.Today's visit was 30 minutes Plan Of Treatment Pending Test Test Name Order Date STOOL WBC 07/28/2024 OVA & PARASITES (O&P) 07/28/2024 C DIFFICILE RFLX PCR 07/28/2024 CALPROTECTIN, STOOL 07/28/2024 GI PANEL 07/28/2024 Future Test Test Name Order Date UPPER GI ENDOSCOPY 11/01/2020 COLONOSCOPY 11/01/2020 Next Appt Details Provider Name:Angelito frausto Jr, 08/01/2025 10:20:00 AM, [address], [address], [place], [address], Insurance Providers Payer Name Payer Address Payer Phone Subscriber Number Group Number Insured Name Patient Relationship to Insured Coverage Start Date Coverage End Date MEDICARE OF [place] [address] [place] [address] [phone] [id number] DIDIER JIMENEZ Self - patient is the insured MEDICAID OF [facility] [address] [place] [address] [id number] DIDIER JIMENEZ Self - patient is the [...] Ruelas's esop hagus. Surgical History Surgery Date(Month/Year) Laparoscopic cholecystectomy 12/07 ORIF ankle 06/10
--- NOTE | 2024-11-22 07:59 | CA_ITS ---
Transthoracic Echocardiogram Patient (Last, First, Middle): Kayleigh Grossman, Gender: Female Date of : 1960 Age: 64 Procedure Date: 11/22/2024 Procedure Type: Transthoracic Echocardiogram Location: OP Height: 165. cm Weight: 81.65 kg BSA: 1.89 m2 Heart Rate: 61 bpm BP: 110 / 60 mmHg Deputy Chief Magistrate: JEMAL Referring MD: Saad Bernal MD Buyer Internship: Saad Bernal MD Symptoms: I50.30 - Unspecified diastolic (congestive) heart failure Study Quality: Adequate w/Contrast ECG Rhythm: Sinus Conclusions: - Hyperdynamic LV systolic function with LVEF of greater than 70% otherwise normal study Findings Procedure Information Contrast agent, definity, is being given per protocol without apparent complications. Left Ventricle Normal left ventricular cavity size. There is normal left ventricular wall thickness. The left ventricular systolic function is hyperdynamic. The visually estimated ejection fraction is >70%. Spectral Doppler is indicative of a normal filling pattern. Right Ventricle Normal right ventricular cavity size and systolic function. Atria The left atrium is normal in size. There is no evidence of interatrial shunt. The right atrium is normal in size. Aortic Valve Normal aortic valve structure and function. There is no aortic valve stenosis. There is no aortic valve regurgitation. Mitral Valve Normal mitral valve structure and function. There is trace mitral valve regurgitation. There is no mitral valve stenosis. Pulmonic Valve The pulmonic valve is likely normal. Tricuspid Valve Normal tricuspid valve structure. There is trace tricuspid valve regurgitation. The right ventricular systolic pressure is 20 mmHg. Normal right atrial pressure. There is no evidence of pulmonary hypertension. Great Vessels All visible segments of the aorta are normal in size. The pulmonary artery was not well visualized. Venous The inferior vena cava is normal in size and collapses greater than 50% with inspiration. Pericardium/Pleural There is no evidence of pericardial effusion. Measurements 2D Linear Measurements IVSd: 1.05 0.6-0.9/0.6-1.0 cm LVIDd: 4.67 3.9-5.3/4.2-5.9 cm LVIDd Index: 2.47 2.4-3.2/2.2-3.1 cm/m2 LVIDs: 2.24 2.0-3.6 cm LVPWd: 1.19 0.7-1.1 cm LA Diam: 3.60 2.7-3.8/3.0-4.0 cm LAIDs Index: 1.90 1.5-2.3 cm/m2 LV Mass: 237.22 67-162/88-224 g LV Mass Index: 125.51 43-95/49-115 g/m2 LVOT Diam: 2.00 3.0+(-)1.3 cm 2D Systolic Function EF 4C: 79.50 >55% EF 2C: 69.00 >55% EF BiP: 75.10 >55% Mitral Valve MV Pk E: 0.68 MV PK A: 0.62 MV Decel Time: 182.00 E/A: 1.10 E'Lateral: 8.59 E'Medial: 6.20 E/E' Med: 11.00 E/E' Lat: 7.90 PHT: 53.00 MVA PHT: 4.15 Decel Charles Mix: 3.74 Aortic Valve AoV Pk Rigoberto: 1.89 AoV Mn Rigoberto: 1.23 AoV VTI: 0.40 AoV Pk Grad: 14.00 Aov Mn Grad: 7.00 CAMILLA Cont.VTI: 2.59 LVOT LVOT Pk Rigoberto: 1.59 LVOT Mn Rigoberto: 1.05 LVOT VTI: 0.33 LVOT Pk Grad: 10.00 LVOT Mn Grad: 5.00 LVOT Diam: 2.00 LVOT Area: 3.14 Diastolic Function MV Pk E: 0.68 MV Pk A: 0.62 E/A: 1.10 E'Medial: 6.20 E/E' Med: 11.00 E' Laterial: 8.59 E/E' Lat: 7.90 Right Ventricle TAPSE (mm): 23.90 TVS' Rigoberto: 11.90 Tricuspid Valve TR Pk Rigoberto: 2.09 TR Pk Grad: 17.00 RA Press: 3.00 RVSP: 20.00 Great Vessels Aorta Sinus of Valsalva: 2.90 2.0-3.5 cm Ao Asc: 4.00 2.1-3.4 cm Ao Arch: 3.60 Pulmonary Valve PV Pk Rigoberto: 1.36 Peak PV Grad: 7.00 Updated in Other Vendor System with Status of Final Saad Bernal MD electronically signed on 11/22/2024 9:36:17 AM with status of Final
== END ==
LOC: HO.CARD 07:55
PROVIDERS: PCP Internal Medicine; Visit Provider Internal Medicine Cardiovascular Disease
DX: I50.30 Unspecified diastolic (congestive) heart failure (principal)
CPT/HCPCS: 93306; Q9957

== ENCOUNTER → 2024-11-22 07:59 | Outpatient (BNV) | payer MEDICARE, MEDICAID, SELFPAY | PROVIDERS: PCP Internal Medicine; Visit Provider Internal Medicine Cardiovascular Disease | DX: I50.30 Unspecified diastolic (congestive) heart failure (principal) | CPT/HCPCS: 93306 ==

== ENCOUNTER 2024-12-07 08:27 | Outpatient (AMB) | payer MEDICARE, MEDICAID, SELFPAY ==
--- OUTSIDE RECORDS SUMMARY | 2024-12-07 08:42 | XMS_ITS | Patient Health Record ---
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 Hydro Name Role Phone Charbel Burdick MD Primary [...] Problem Status W/U Status Risk Notes Problem [id number] Colon cancer screening (Z12.11) Active confirmed Problem Dysphagia (35731880) Dysphagia (R13.10) Active confirmed Problem 836894228 Gastroesophageal reflux disease without esophagitis (K21.9) Active confirmed Problem Gastroesophageal reflux disease (954136424) GERD (gastroesophageal reflux disease) (K21.9) Active confirmed Problem 77577880 Dysphagia, unspecified type (R13.10) Active confirmed Problem 78938333 Diarrhea, unspecified type (R19.7) Active confirmed Problem 909145509 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) Active confirmed Problem 666883102 Gastroesophageal reflux disease, unspecified whether esophagitis present (K21.9) Active confirmed Vital Signs Temperature 96.9 degrees Fahrenheit 07/28/2024 Blood pressure diastolic 01 mm Hg 07/28/2024 Height 64.5 in 07/28/2024 Blood pressure systolic 001 mm Hg 07/28/2024 Weight 180 lbs 07/28/2024 BMI 30.42 kg/m2 07/28/2024 Encounters Encounter Location Date Provider Diagnosis [facility] 10 [facility] [address] [place] [phone] 07/28/2024 Angelito Adler Jr Indeterminate colitis K52.3 [facility] [address] [place] [address] 08/04/2024 Angelito Adler Jr Assessments Encounter Date [...] 10:20:00 AM, [address], [address], [place], [address], Insurance Providers Payer Name Payer Address Payer Phone Subscriber Number Group Number Insured Name Patient Relationship to Insured Coverage Start Date Coverage End Date MEDICARE OF [place] [address] [place] [address] [id number] DIDIER JIMENEZ Self - patient is the insured MEDICAID OF [facility] [address] [place] [address] [id number] DIDIER JIMENEZ Self - patient is the [...]
--- NOTE | 2024-12-07 08:43 | MHC.OFFVIS ---
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 Allergies latex Allergy (Mild, Verified 10/22/24 11:00) Rash Medication List - Last Reconciled 12/07/24 by Saad Bernal MD albuterol sulfate 90 mcg/actuation 2 puffs inhalation Q4-6H PRN alprazolam 0.5 mg PO BID PRN atorvastatin 40 mg PO DAILY biotin 10,000 mcg PO DAILY calcium carbonate (Calcium 600) 600 mg PO DAILY cholecalciferol (vitamin D3) (Vitamin D3) 25 mcg PO DAILY clonazepam 0.25 mg PO BEDTIME diphenhydramine HCl (Benadryl Allergy) 25 mg PO BEDTIME PRN escitalopram oxalate 20 mg PO DAILY Farxiga (dapagliflozin propanediol) 5 mg PO DAILY 90 days NS eamidimqvgm-iicnacani-snqykzkv 100-62.5-25 mcg (Trelegy Ellipta) 1 ea inhalation DAILY furosemide 20 mg PO DAILY ketoconazole 2% 1 appl topical mesalamine ER 1.5 grams PO DAILY oxcarbazepine 300 mg PO BID phenazopyridine (Pyridium) 100 mg PO TID PRN spironolactone 25 mg PO DAILY valbenazine (Ingrezza) 80 mg PO DAILY HPI Comments Details: Kayleigh comes for follow-up. She has had no hospitalization related to heart failure in the last 1 year. She does not weigh herself on a regular basis. She understands signs and symptoms of heart failure though. She takes her diuretics on a regular basis. She says she has recently been diagnose with diabetes as well as hyperlipidemia and currently taking medications for the same. She also has been treated for targeted dyskinesia. She denies any orthopnea, PND. No lightheadedness, syncope. No prolonged palpitation irregular heartbeat. Recent echocardiogram showed hyperdynamic LV ejection fraction. Ascending aortic size was reported to be within normal limits. [facility] Medical History Gait disturbance Neuroleptic-induced tardive dyskinesia Ascending aorta dilatation Nicotine dependence, cigarettes, uncomplicated Osteoporosis Wrist fracture, right Pulmonary nodules COPD (chronic obstructive pulmonary disease) Bronchiolitis Dyskinesia Complex partial seizure disorder History of seizure (HFpEF) heart failure with preserved ejection fraction Edema of both lower extremities PFO (patent foramen ovale) Anxiety and depression Low back pain Fatty liver Asthma COVID-19 vaccine series started Surgical History History of cholecystectomy History of colonoscopy History of ankle surgery History of loop electrical excision procedure (LEEP) History of esophagogastroduodenoscopy (EGD) Family History Mother Pancreatic cancer Social History Alcohol intake: current Alcohol intake frequency: holidays/special occasions only Comment: hematoma mid chest & broken collar bone Patient Tobacco Use Status: Current everyday Tobacco user Tobacco use type: Cigarette Cigarettes Per Day: 10 Years Smoked: (onset 16yo, 1/2ppd x 45yrs 20+PYH) Second Hand Smoke Exposure: Yes Substance Use Type: Marijuana 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al status: 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 Review of Systems Const Denies chills, Denies fatigue, Denies fever(s), Denies frequent falls, Denies weakness, Denies weight gain and Denies weight loss ENT Denies dizziness Card Denies chest pain, Denies leg edema, Denies lightheadedness, Denies palpitations, Denies dyspnea, Denies dyspnea on exertion, Denies orthopnea and Denies other (loss of consciousness) Resp Denies cough, Denies dyspnea and Denies dyspnea on exertion GI Denies hematochezia and Denies change in stool character Musc Denies abnormal gait, Denies muscle weakness, Denies numbness, Denies radiating pain into limb and Denies tingling Neuro Denies abnormal gait, Denies dizziness, Denies frequent falls, Denies numbness, Denies tingling and Denies weakness Endo Denies fatigue and Denies palpitations Physical Exam Vital Signs: Last Vital Signs Pulse 69 12/07/24 08:44 BP 130/80 12/07/24 08:44 BMI result Body Mass Index 29.9 Const General: cooperative, comfortable, no acute distress, alert and awake Nutritional Appearance: obese Orientation/consciousness: patient oriented x3 Limitations: no limitations Neck Neck: Yes trachea midline, Yes supple and Yes no JVD Resp Effort & Inspection: normal respiratory effort Auscultation: clear to auscultation bilaterally Cardio Jugular venous distension: no JVD Palpation: normal PMI Rate: regular rate Rhythm: regular rhythm Heart sounds: S1 normal heart sound present, S2 normal heart sound present, no click, no gallops, no murmurs and no rubs GI Auscultation: normal bowel sounds Skin General skin exam: no rashes or lesions noted Neuro General: patient oriented x3 and no focal motor deficits Extrem General: Yes no clubbing, cyanosis or edema, Yes pedal edema, Yes venous stasis dermatitis and Yes other (Bilateral mild varicosities) Psych Appearance: grossly normal Office Procedures EKG Details: EKG shows normal sinus rhythm with right bundle-branch block, unchanged from before [id number], Complete Assessment & Plan Assessment & Plan (1) (HFpEF) heart failure with preserved ejection fraction: Code(s): I50.30 - Unspecified diastolic (congestive) heart failure Category: Medical Plan: Heart failure with preserved ejection fraction with limited exercise capacity. Encouraged to increase activity level. Clinically appears to be euvolemic well compensated current diuretic dose. Heart failure management was discussed. Importance of daily weight monitoring avoidance salt loading was discussed. Additional diuretics as need be. Her pulmonary status also seems to be well optimized. Continue to optimize pulmonary function. Strongly discussed smoking cessation to help with lung function. She understands. Continue current neurohormonal modulators with spironolactone as well as Farxiga. She understands management well. Blood pressure is currently well optimized. Echocardiogram shows preserved LV ejection fraction. Encouraged to increase activity level. Will follow up in the clinic in 1 year's time, sooner p.r.n.. Thank you for allowing me to partake in her care Coding Level of Care Code Est Pt Level 4 (80585) Complex EM visit Add On G2211 Diagnoses (HFpEF) heart failure with preserved ejection fraction I50.30 CPT Codes EKG - CPT: 06564-[id number], Complete ([id number])
[2024-12-07 08:44] VITALS: BP 130/80; PULSE 69; BMI 29.9
== END 2024-12-07 09:04 | disposition home or self-care (01) ==
LOC: HO.HCS 08:28
PROVIDERS: PCP Internal Medicine; Visit Provider Internal Medicine Cardiovascular Disease
DX: I50.30 Unspecified diastolic (congestive) heart failure (principal)
CPT/HCPCS: 93010; 99214; G2211

== ENCOUNTER → 2024-12-07 08:27 | Outpatient (BNVA) | payer MEDICARE, MEDICAID, SELFPAY | PROVIDERS: PCP Internal Medicine; Visit Provider Internal Medicine Cardiovascular Disease | DX: I50.30 Unspecified diastolic (congestive) heart failure (principal); I45.10 Unspecified right bundle-branch block; R94.31 Abnormal electrocardiogram [ECG] [EKG] | CPT/HCPCS: 93005; 99212 ==

== ENCOUNTER 2025-01-10 10:46 | Outpatient (AMB) | payer MEDICARE, MEDICAID, SELFPAY ==
--- NOTE | 2025-01-10 10:54 | A.OFFVIS_ITS ---
Vital Signs 01/10/25 10:55 Height 5 ft 4 in Weight 171 lb 15.369 oz BMI 29.5 BP 114/68 Blood Pressure Location Lt brachial Position Sitting Pulse 70 Pulse Source Pulse Oximeter Pulse Oximetry (%) 94 Oxygen Delivery Method Room Air Intake Visit Reasons: copd Scoreboard Operator Required: No Accompanied by: Self / Same As Patient Allergies latex Allergy (Mild, Verified 01/10/25 10:57) Rash HPI Comments Details: The patient is a 64 year woman with a known history of tobacco dependency in addition to COPD who was referred to us for evaluation of an abnormal CT scan of the chest. Apparently the patient has had pulmonary nodules now for many years. Ultimately she was placed on Anoro with good response. She has a rescue inhaler that she does not use. More recently in January 14 she did undergo a repeat CT scan of the chest at [facility]. I personally reviewed the CT scan myself with the patient. It appears that she does have evidence of tree-in-bud which in this case appears to be bronchiolitis. This involving the upper lung zones in addition to the right middle lobe. The right middle lobe appears to have some degree of atelectasis in addition to more extensive airspace disease. We talked about the differential. The patient understands that smoking related interstitial lung conditions is in the differential. In addition to smoldering infections. The patient is not expectorating significant amount of mucus. The patient denies any weight loss or night sweats. Denies any hemoptysis. No evidence of any concerning findings suggest a malignant process. It also appears that the treating budding or bronchiolitis was also present last year. At this point will try to maximize her respiratory therapy by adding an inhaled cortical steroid to minimize the bronchiolitis component. The patient also needs to work on her smoking cessation. She is motivated to quitting although she understands that she is going to have a hard time. We did talk about the Nicotrol inhaler and she is willing to try that. Initially she can alternate a regular cigarette with the Nicotrol inhaler and hopefully wean off completely from the cigarette smoke. The patient also will try to provide us with a sputum sample for AFB in culture to further assess for non tuberculosis mycobacterial infections which can manifest in this form. 01/01/2023 the patient is here for pulmonary follow-up visit. She is still smoking. She has had a hard time because her psychiatric medications were changed. She also has significant stresses in her home. She was not able to quit. I did send of the Nicotrol inhaler although I am not sure is going to be covered. I do believe will be a good option for her since she likes the habit of holding on to the cigarette. The patient also had a recent CT scan of the chest at [facility]. I do not have the results as of yet. I am going to be able to look at him later on. The patient has had pulmonary nodules and has a question of smoldering infection. We were able to send a sputum culture for AFB back last year and was negative for AFB which is reassuring although not 100%. The patient has been using the Trelegy inhaler and this has been more effective for her breathing. She does take it with good adherence. At this point the patient did fall she hurt her right wrist. She did not have any x-rays. I did put in for some x-rays she can have that looked at. Otherwise patient is to follow-up with her primary care doctor regarding that. 06/24/2023 the patient is here for a pulmonary follow-up visit. The patient has been struggling with smoking. She still enjoying the smoking. She gets very anxious when she stops smoking. She did try the Nicotrol inhaler but that was not helpful. She is tried multiple prescription medications for smoking cessation without any benefit. I did provide her with a pamphlet where she can call and seek further smoking cessation counseling through a [facility] program. She also recently was diagnosed with tardive dyskinesia and she is struggling with the diagnosis. The patient did have a CT scan done at [facility] which we personally reviewed. The patient does have evidence of numerous micronodular densities in distribution consistent with respiratory bronchiolitis. Likely respiratory bronchiolitis interstitial lung disease which is interstitial lung disease related to her smoking. The patient understands that if this is capped untreated by her continues smoking then she can develop inflammation of the lungs and potentially lung fibrosis. Will continue to evolve monitor the evolution of this process. She is participating in the mn reening CT scans at [facility]. The patient is responding well to Trelegy inhaler. She does use it once a day. She also has a rescue inhaler. She does have a cough productive in nature typically in the morning consistent with her smoker's cough. 02/04/2024 the patient is here for a pulmonary follow-up visit. Overall she is doing okay. Unfortunately she has not been able to quit smoking. She still motivated does want to quit. She did try Chantix in the past twice. The 1st time was very effective. Then the 2nd time she got nauseous and she could not tolerate it. She never really got depression from. She does have a diagnosed the depression she does have a psychiatrist. Therefore, I do feel comfortable sending the prescription of the Chantix to the pharmacy started pack. However, I did request that she can call her psychiatrist to make sure that is okay with them. In the meantime the patient continues with respiratory therapy. She is responding well to the Trelegy. She has not had to use her rescue inhaler. In addition to that she continues to participate in the lung cancer screening program. However, she no longer going to [facility] since [facility] no longer takes her insurance. Will go ahead and refer her to our program here. The patient follow-up in 6 months. If she develops any issues prior to that she will call for an earlier assessment. She also needs to call to make sure that she continues on the maintenance Chantix when she completes the starter pack. 01/10/2025 the patient is here for a pulmonary follow-up visit. Overall the gigi ent is doing fairly well. Still complains of cough. Iisu-ku-owzveixd severity. Typically productive in the morning. Unfortunately she continues to smoke cigarettes. She is looking into hypnosis. The meantime the patient his willing to accept a nicotine patch. We did talk about other non nicotine supplements she can try to help her decrease her cravings. For now she is doing well on Trelegy. She does use it daily. She has not required her rescue inhaler. She is also participating in the lung cancer screening program. Her last CT scan was back in March 2024 with rads 2. Therefore the patient will have another CT scan in the fall of 2024. Will follow-up in the spring. If any issues arise she can always call for further recommendations. [facility] Medical History Gait disturbance Neuroleptic-induced tardive dyskinesia Ascending aorta dilatation Nicotine dependence, cigarettes, uncomplicated Osteoporosis Wrist fracture, right Pulmonary nodules COPD (chronic obstructive pulmonary disease) Bronchiolitis Dyskinesia Complex partial seizure disorder History of seizure (HFpEF) heart failure with preserved ejection fraction Edema of both lower extremities PFO (patent foramen ovale) Anxiety and depression Low back pain Fatty liver Asthma COVID-19 vaccine series started Surgical History History of cholecystectomy History of colonoscopy History of ankle surgery History of loop electrical excision procedure (LEEP) History of esophagogastroduodenoscopy (EGD) Family History Mother Pancreatic cancer Social History Alcohol intake: current Alcohol intake frequency: holidays/special occasions only Comment: hematoma mid chest & broken collar bone Patient Tobacco Use Status: Current everyday Tobacco user Tobacco use type: Cigarette Cigarettes Per Day: 10 Years Smoked: (onset 16yo, 1/2ppd x 47yrs 20+PYH) Second Hand Smoke Exposure: Yes Substance Use Type: Marijuana 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al status: 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 Review of Systems Const Denies fever(s) and Denies weight loss Eyes Denies change in vision and Denies itchy eyes ENT Denies change in voice and Denies lip swelling Card Denies chest pain, Denies dyspnea and Reports dyspnea on exertion Resp Denies chest congestion, Reports cough, Denies hemoptysis, Denies dyspnea and Reports dyspnea on exertion GI Reports no additional complaints Musc Reports as per HPI, Reports abnormal gait, Reports arthralgias and Reports joint swelling Skin/Breast Denies rash Neuro Reports no additional complaints and Reports abnormal gait Psych Reports anxiety Lucius/Lymph Denies easy bleeding, Denies easy bruising and Denies lymphadenopathy Aller/Immun Denies itchy eyes and Denies lip swelling Physical Exam Vital Signs: Last Vital Signs Pulse 70 01/10/25 10:55 BP 114/68 01/10/25 10:55 Pulse Ox 94 01/10/25 10:55 Oxygen Delivery Method Room Air 01/10/25 10:55 BMI result Body Mass Index 29.5 Const General: comfortable HEENT Head: Yes normal to inspection Eyes General: appearance normal, both eyes and all related structures Neck Neck: Yes supple Chest Chest palpation & inspection: normal inspection of the chest Resp Effort & Inspection: normal respiratory effort Auscultation: no rales, no rhonchi, no wheezes and diminished lung sounds Cardio Rate: regular rate Rhythm: regular rhythm Heart sounds: S1 normal heart sound present and S2 normal heart sound present GI Auscultation: normal bowel sounds Skin General skin exam: no rashes or lesions noted Extrem General: Yes no clubbing, cyanosis or edema Right upper extremity: wrist Details: tenderness, swelling and warmth; no deformity Assessment & Plan Assessment & Plan (1) Bronchiolitis: Comment: RB ILD related to smoking Code(s): J21.9 - Acute bronchiolitis, unspecified Category: Medical (2) COPD (chronic obstructive pulmonary disease): Code(s): J44.9 - Chronic obstructive pulmonary disease, unspecified Category: Medical Qualifiers: COPD type: chronic bronchitis Chronic bronchitis type: mixed simple and mucopurulent Qualified Code(s): J41.8 - Mixed simple and mucopurulent chronic bronchitis (3) Tobacco dependence: Code(s): F17.200 - Nicotine dependence, unspecified, uncomplicated Category: Medical (4) Cough: Code(s): R05 - Cough Category: Medical Qualifiers: Cough type: chronic Qualified Code(s): R05.3 - Chronic cough (5) Pulmonary nodules: Code(s): R91.8 - Other nonspecific abnormal finding of lung field Category: Medical Plan continue Trelegy MAYTE as needed stopped nicotrol inhaler infotmation provided for smoking cessation program start nicotine patch, considering hypnosis CT chest RADS 2 F/U 6-8 months Medications: New nicotine 1 patch transdermal Q24H 28 ea 4RF 28 days albuterol sulfate 90 mcg/actuation 2 puffs inhalation Q4-6H PRN 8.5 grams 11RF Shortness Of Breath Or Wheezing Refilled iygdqecdiqm-gfdytcanb-nfbfgnao 100-62.5-25 mcg (Trelegy Ellipta) 1 ea inhalation DAILY 60 ea 11RF J44.9 - Chronic obstructive pulmonary disease, unspecified Coding Level of Care Code Est Pt Level 4 (76667) Complex EM visit Add On G2211 Diagnoses Bronchiolitis J21.9 Mixed simple and mucopurulent chronic bronchitis J41.8 COPD type: chronic bronchitis Chronic bronchitis type: mixed simple and mucopurulent Tobacco dependence F17.200 Chronic cough R05.3 Cough type: chronic Pulmonary nodules R91.8 Time Spent (min) 16
[2025-01-10 10:55] VITALS: BP 114/68; PULSE 70; O2SAT 94; BMI 29.5
--- OUTSIDE RECORDS SUMMARY | 2025-01-10 12:00 | XMS_ITS | Patient Health Record ---
Author Organization [facility] Address [address] [place] [phone] Care Team Providers Care Coverage Analyst Name Role Phone Charbel Burdick MD Primary [...] Problem Status W/U Status Risk Notes Problem 115499504 Colon cancer screening (Z12.11) Active confirmed Problem Dysphagia (16925568) Dysphagia (R13.10) Active confirmed Problem 549014626 Gastroesophageal reflux disease without esophagitis (K21.9) Active confirmed Problem Gastroesophageal reflux disease (917158412) GERD (gastroesophageal reflux disease) (K21.9) Active confirmed Problem 51125554 Dysphagia, unspecified type (R13.10) Active confirmed Problem 68172603 Diarrhea, unspecified type (R19.7) Active confirmed Problem 091777975 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) Active confirmed Problem 617930212 Gastroesophageal reflux disease, unspecified whether esophagitis present (K21.9) Active confirmed Vital Signs Temperature 96.9 degrees Fahrenheit 07/28/2024 Blood pressure diastolic 01 mm Hg 07/28/2024 Height 64.5 in 07/28/2024 Blood pressure systolic 001 mm Hg 07/28/2024 Weight 180 lbs 07/28/2024 BMI 30.42 kg/m2 07/28/2024 Encounters Encounter Location Date Provider Diagnosis [facility] [address] [place] [phone] 07/28/2024 Angelito Adler Jr Indeterminate colitis K52.3 [facility] [address] [place] [address] 08/04/2024 Angelito Adler Jr Assessments Encounter Date [...] 10:20:00 AM, [address], [address], [place], [address], Insurance Providers Payer Name Payer Address Payer Phone Subscriber Number Group Number Insured Name Patient Relationship to Insured Coverage Start Date Coverage End Date MEDICARE OF [place] [address] [place] [address] [phone] [id number] DIDIER JIMENEZ Self - patient is the insured MEDICAID OF [facility] [address] [place] [address] [id number] DIDIER JIMENEZ Self - patient is the [...]
== END 2025-01-10 11:24 | disposition home or self-care (01) ==
LOC: HO.HPS 10:46
PROVIDERS: PCP Internal Medicine; Visit Provider Hospitalist
DX: J21.9 Acute bronchiolitis, unspecified (principal); J41.8 Mixed simple and mucopurulent chronic bronchitis; F17.200 Nicotine dependence, unspecified, uncomplicated; R05.3 Chronic cough; R91.8 Other nonspecific abnormal finding of lung field
CPT/HCPCS: 99214; G2211

== ENCOUNTER → 2025-01-10 10:46 | Outpatient (BNVA) | payer MEDICARE, MEDICAID, SELFPAY | PROVIDERS: PCP Internal Medicine; Visit Provider Hospitalist | DX: J41.8 Mixed simple and mucopurulent chronic bronchitis (principal); J21.9 Acute bronchiolitis, unspecified; R05.3 Chronic cough; R91.8 Other nonspecific abnormal finding of lung field; F17.210 Nicotine dependence, cigarettes, uncomplicated | CPT/HCPCS: 99212 ==

== ENCOUNTER → 2025-01-11 11:20 | Outpatient (BNV) | payer MEDICARE, MEDICAID, SELFPAY | PROVIDERS: PCP Internal Medicine; Referring Provider Internal Medicine; Visit Provider Internal Medicine Medical Oncology | DX: D75.839 Thrombocytosis, unspecified (principal) | CPT/HCPCS: 99204 ==

== ENCOUNTER 2025-02-23 10:44 | Outpatient (AMB) | payer MEDICARE, MEDICAID, SELFPAY ==
[2025-02-23 10:46] VITALS: BP 124/82; PULSE 62; O2SAT 97; BMI 28.7
--- NOTE | 2025-02-23 10:46 | A.OFFVIS_ITS ---
Vital Signs 02/23/25 10:46 Height 5 ft 4 in Weight 167 lb BMI 28.7 BP 124/82 Blood Pressure Location Rt brachial Position Sitting Pulse 62 Pulse Source Pulse Oximeter Pulse Oximetry (%) 97 Oxygen Delivery Method Room Air Intake Visit Reasons: 4m follow up Intake Note: Follow up Drug induced subacute dyskinesia, Unspecified abnormalities of gait and mobility Turner Machine Operator Required: No Accompanied by: Sister Allergies latex Allergy (Mild, Verified 02/23/25 10:50) Rash HPI Comments Details: 64y/o with abnormal movements comes for follow up. No change since last visit . The mouth movements bother her .since stopping gabapentin her balance is better and no falls. she has h/o major depression and was on aripiprazole and brexpiprazole. History from last visit-she started noticing abnormal mouth , tongue movements about 5 years ago. Her brexpiprazole was stopped, the movements improved initially .But later it worsened and she was tried on austedo which she did not tolerate. She is currently on ingrezza - 80 mg qd and she does not think it helps. she also reports poor balance and gait and has had multiple falls she has h/o seizures and follows up with . Her last seizure was 5 years ago. she also has hypersomnia. [facility] Medical History Gait disturbance Neuroleptic-induced tardive dyskinesia Ascending aorta dilatation Nicotine dependence, cigarettes, uncomplicated Osteoporosis Wrist fracture, right Pulmonary nodules COPD (chronic obstructive pulmonary disease) Bronchiolitis Dyskinesia Complex partial seizure disorder History of seizure (HFpEF) heart failure with preserved ejection fraction Edema of both lower extremities PFO (patent foramen ovale) Anxiety and depression Low back pain Fatty liver Asthma COVID-19 vaccine series started Surgical History History of cholecystectomy History of colonoscopy History of ankle surgery History of loop electrical excision procedure (LEEP) History of esophagogastroduodenoscopy (EGD) Family History Mother Pancreatic cancer Social History Household Members: Family Housing: House Are you a primary nurse care manager to a significant other at home: Yes Do you presently have visiting nurse or other home services: No Alcohol intake: current Alcohol intake frequency: holidays/special occasions only Comment: hematoma mid chest & broken collar bone Patient Tobacco Use Status: Current everyday Tobacco user Tobacco use type: Cigarette Years Smoked: (onset 16yo, 1/2ppd x 47yrs 20+PYH) Second Hand Smoke Exposure: Yes Substance Use Type: Marijuana service: No 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al status: 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 General: patient oriented x3, moves all extremities and no focal motor deficits Cranial nerves: Yes Facial sensation intact/muscles of mastication intact, Yes Equal, round and reactive pupils present, Yes Bilaterally intact EOM present, Yes Nystagmus not present, Yes Normal facial strength present and Yes Midline tongue present Cognition (Neuro): normal cognition Gait exam (Neuro): Shuffling gait present Motor exam (neuro): 5/5 motor strength present throughout and Normal motor muscle tone present throughout Deep tendon reflexes (DTR's): Right triceps reflex intensity grade: 2+, Left triceps reflex intensity grade: 2+, Rt Biceps (C5, C6): 2+, Left biceps reflex intensity grade: 2+, Right brachioradialis reflex intensity grade: 2+, Left brachioradialis reflex intensity grade: 2+, Right patellar reflex intensity grade: 2+ and Left patellar reflex intensity grade: 2+ Coordination: vwomek-bc-pavz test normal Assessment & Plan Assessment & Plan (1) Neuroleptic-induced tardive dyskinesia: Code(s): G24.01 - Drug induced subacute dyskinesia; T43.505A - Adverse effect of unspecified antipsychotics and neuroleptics, initial encounter Category: Medical (2) Gait disturbance: Comment: dyskinesia, polypharmacy Code(s): R26.9 - Unspecified abnormalities of gait and mobility Category: Medical Plan MRI Brain - normal Labs - normal Continue ingrezza 80mg qd Restart Clonazepam 0.25mg qhs Coding Level of Care Code Est Pt Level 4 (58043) Diagnoses Neuroleptic-induced tardive dyskinesia G24.01; T43.505A Gait disturbance R26.9
== END 2025-02-23 11:38 | disposition home or self-care (01) ==
LOC: HO.HSMS 10:45
PROVIDERS: PCP Internal Medicine; Visit Provider Psychiatry & Neurology Neurology
DX: G24.01 Drug induced subacute dyskinesia (principal); T43.505A Adverse effect of unspecified antipsychotics and neuroleptics, initial encounter; R26.9 Unspecified abnormalities of gait and mobility
CPT/HCPCS: 99214

== ENCOUNTER → 2025-02-23 10:44 | Outpatient (BNVA) | payer MEDICARE, MEDICAID, SELFPAY | PROVIDERS: PCP Internal Medicine; Visit Provider Psychiatry & Neurology Neurology | DX: G24.01 Drug induced subacute dyskinesia (principal); T43.505A Adverse effect of unspecified antipsychotics and neuroleptics, initial encounter; R26.9 Unspecified abnormalities of gait and mobility; Z72.0 Tobacco use | CPT/HCPCS: 99212 ==

== ENCOUNTER 2025-04-08 08:57 | Outpatient (REF) | payer MEDICARE, MEDICAID, SELFPAY ==
--- NOTE | ~2025-04-08 | CT_ITS ---
EXAMINATION: CT LUNG SCREENING HISTORY: F17.210 - Nicotine dependence, cigarettes, uncomplicated TECHNIQUE: Low dose axial images were obtained from the sternal notch to upper abdomen without IV contrast per standard departmental protocol. Sagittal and coronal reformatted images were also obtained and reviewed. One or more of the following techniques was used for dose reduction: Automated exposure control, adjustment of the mA and/or kV according to patient size, use of iterative reconstruction technique. DLP: 50 mGy-cm COMPARISON: Previous chest CT most recent March 2024 FINDINGS: Lung nodules: Mild biapical pleural and parenchymal scarring. Mild emphysema. Scattered small bilateral upper lobe 2 to 3 mm noncalcified micronodules unchanged. See marked images. Stable small calcified left upper lobe nodules, largest measuring 4 mm, probably representing a granuloma axial image 192 series 6. There is increasing medial segment right middle lobe atelectasis with question central nodule measuring approximately 1.6 x 2.8 cm axial image 341 series 6. There is linear subsegmental atelectasis in the insula that appears unchanged. There is new increased groundglass attenuation, increased interstitial markings and small clustered nodules in the right lower lobe lobe for example axial image 339 series 6 measuring 6 mm. Infectious or inflammatory process is favored. Central airways are clear. Coronary Calcification: mild Aortic Arch Calcification: mild No thyroid nodule. Normal heart size. No pericardial effusion. Upper normal size ascending thoracic aorta measuring 4 x 4.2 cm. No aortic valve calcification. No enlarged hilar or mediastinal lymph nodes. There is no pleural effusion or pneumothorax No axillary lymphadenopathy or chest wall mass. Visualized upper abdomen: The visualized portions of the liver, spleen, and adrenals have an unremarkable unenhanced appearance. Cholecystectomy. Old left rib fractures. Moderate T12 and L1 vertebral body compression fractures unchanged. Degenerative changes of the spine. CT/CT lung screening IMPRESSION: Increasing medial segment right middle lobe atelectasis. Increasing more central soft tissue, question more central nodule in the right middle lobe measuring 1.6 x 2.8 cm. New increased attenuation, increased interstitial markings and clustered semisolid nodules in the right lower lobe. LUNG-RADS ASSESSMENT: MANAGEMENT: 3 month LDCT Category S: N/A Electronically signed by: Alexandra Richardson MD 04/08/2025 01:54 PM FANNY FERRIS
--- OUTSIDE RECORDS SUMMARY | 2025-04-08 09:09 | XMS_ITS | Patient Health Record ---
Author Organization [facility] Address [address] [place] [address] Care Team Providers Care Ear Nose And Throat Specialist Name Role Phone Charbel Burdick MD Primary Care Provider Angelito Franz Jr Unavailable Allergies No Known Allergies Reason For Referral No Information Medications Medication SIG (Take, Route, Frequency, Duration) Notes Start Date End Date Status Apriso 0.375 GM Capsule Extended Release 24 Hour TAKE 4 CAPSULES BY MOUTH EVERY MORNING; Duration: 30 Active Escitalopram Oxalate 20 MG Tablet TAKE 1 TABLET BY MOUTH DAILY Oral; Duration: 90 Active Potassimin Active Trelegy Ellipta 100-62.5-25 MCG/ACT Aerosol Powder Breath Activated Inhalation; Duration: 30 Active MiraLax (colon prep) 8.3 ounce ((238) grams mixed with Gatorade or Crystal Light orally begin at 5:00 p.m. the day before the procedure; Duration: 1 day 11/01/2020 Active Ingrezza 80 MG Capsule Orally Active Vitamin D Active Loperamide HCl 1 MG/7.5ML Solution 15 mL Orally Four times a day 07/28/2024 Active Biotin Active Aspirin 81 81 MG Tablet Delayed Release 1 tablet Orally Once a day; Duration: 30 day(s) Active ALPRAZolam 0.5 MG Tablet (Schedule IV Dr gomez) TAKE 1 TO 2 TABLETS TWICE A DAY NEEDED Oral; Duration: 90 Active OXcarbazepine 300 MG Tablet TAKE 1 TABLE T BY MOUTH TWICE A DAY Oral; Duration: 90 Active Anoro Ellipta 62.5-25 MCG/INH Aerosol Powder Breath Activated INHALE 1 PUFF BY MOUTH DAILY Inhalation; Duration: 60 Active Jardiance 10 MG Tablet Oral; Duration: 36 Active Furosemide 20 MG Tablet Oral; Duration: 60 Active Immunizations Vaccine Route Administration Date Status Comme nts Influenza Unknown 03/01/2020 Administered Influenza Unknown 04/18/2022 Administered Influenza Unknown 07/28/2023 Refused Social History Tobacco Use: Social History Observation Description Date Details (start date - stop date) Current Smoker NA - NA Social History Drugs/Alcohol: Social Info Question Answer Notes Alcohol Screen Did you have a drink containing alcohol in the past year? Yes How often did you have a drink containing alcohol in the past year? Never (0 point) How many drinks did you have on a typical day when you were drinking in the past year? 1 or 2 drinks (0 point) How often did you have 6 or more drinks on one occasion in the past year? Never (0 point) Points 0 Interpretation Negative Tobacco Use: Social Info Question Answer Notes Tobacco Use/Smoking Patient is a current smoker When did you start smoking? 18 years old How often do you smoke cigarettes? every day How many cigarettes a day do you smoke? 11-20 How soon after you wake up do you smoke your first cigarette? within 5 minutes Are you interested in quitting? 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 - [employer] Problems Problem Type SNOMED Code ICD Code Onset Dates Problem Status W/U Status Risk Notes Problem Colon cancer screening (267313791) Colon cancer screening (Z12.11) Active confirmed Problem Dysphagia (64198658) Dysphagia (R13.10) Active confirmed Problem Gastroesophageal reflux disease without esophagitis (427818272) Gastroesophageal reflux disease without esophagitis (K21.9) Active confirmed Problem Gastroesophageal reflux disease (636207936) GERD (gastroesophageal reflux disease) (K21.9) Active confirmed Problem Dysphagia (36237699) Dysphagia, unspecified type (R13.10) Active confirmed Problem Diarrhea (69875691) Diarrhea, unspecified type (R19.7) Active confirmed Problem Indeterminate colitis (147157789) 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) Active confirmed Problem Gastroesophageal reflux disease (322729295) Gastroesophageal reflux disease, unspecified whether esophagitis present (K21.9) Active confirmed Vital Signs Temperature 96.9 degrees Fahrenheit 07/28/2024 Blood pressure diastolic 01 mm Hg 07/28/2024 Height 64.5 in 07/28/2024 Blood pressure systolic 001 mm Hg 07/28/2024 Weight 180 lbs 07/28/2024 BMI 30.42 kg/m2 07/28/2024 Encounters Encounter Location Date Provider Diagnosis [facility] [address] [place] [address] 07/28/2024 Angelito Adler Jr Indeterminate colitis K52.3 [facility] [address] [place] [address] 08/04/2024 Angelito Adler Jr Assessments Encounter Date [...] Appt Details Provider Name:Angelito Deena frausto Jr, 08/01/2025 10:20:00 AM, [address] [facility], [address], [place], [address], Insurance Providers Payer Name Payer Address Payer Phone Subscriber Number Group Number Insured Name Patient Relationship to Insured Coverage Start Date Coverage End Date MEDICARE OF [place] [address] [place] [address] [id number] DIDIER JIMENEZ Self - patient is the insured [id number] [address] [place] [phone] [id number] DIDIER JIMENEZ Self - patient is the [...]
== END 2025-04-08 08:58 | disposition home or self-care (01) ==
LOC: HO.CT 08:57
PROVIDERS: PCP Internal Medicine; Visit Provider Physician Assistant Medical
DX: F17.210 Nicotine dependence, cigarettes, uncomplicated (principal); Z12.2 Encounter for screening for malignant neoplasm of respiratory organs
CPT/HCPCS: 71271

== ENCOUNTER → 2025-04-08 08:58 | Outpatient (BNV) | payer MEDICARE, MEDICAID, SELFPAY | PROVIDERS: PCP Internal Medicine; Visit Provider Radiology Diagnostic Radiology | DX: Z12.2 Encounter for screening for malignant neoplasm of respiratory organs (principal); Z87.891 Personal history of nicotine dependence; J98.11 Atelectasis | CPT/HCPCS: 71271 ==

== ENCOUNTER 2025-04-21 09:52 | Outpatient (AMB) | payer MEDICARE, MEDICAID, SELFPAY ==
--- NOTE | 2025-04-21 09:56 | A.OFFVIS_ITS ---
Intake Visit Reasons: 6 Months CPS Allergies latex Allergy (Mild, Verified 04/21/25 10:01) Rash Medication List - Last Reconciled 04/21/25 by Jackelyn Macias CNP albuterol sulfate 90 mcg/actuation 2 puffs inhalation Q4-6H PRN alprazolam mg PO atorvastatin 40 mg PO DAILY biotin 10,000 mcg PO DAILY calcium carbonate (Calcium 600) 600 mg PO DAILY cholecalciferol (vitamin D3) (Vitamin D3) 25 mcg PO DAILY clonazepam 0.25 mg PO BEDTIME Held on 01/13/25. Instructions: on back order clonazepam (Klonopin) 0.25 mg (1/2 x 0.5 mg) PO BEDTIME 30 days diphenhydramine HCl (Benadryl Allergy) 25 mg PO BEDTIME PRN escitalopram oxalate 20 mg PO DAILY Farxiga (dapagliflozin propanediol) 5 mg PO DAILY 90 days NS xoqncusrpkf-abjwtgewr-lqrxpgnk 100-62.5-25 mcg (Trelegy Ellipta) 1 ea inhalation DAILY furosemide 20 mg PO DAILY ketoconazole 2% 1 appl topical DAILY mesalamine ER 1.5 grams PO DAILY nicotine 1 patch transdermal Q24H 28 days oxcarbazepine 600 mg PO BID spironolactone 25 mg PO DAILY valbenazine (Ingrezza) 80 mg PO DAILY HPI Comments Details: 65-year-old woman with depression, anxiety, tardive dyskinesia, and complex partial seizure disorder (episodes of transient confusion with EEG revealing left temp sharps). She was doing okay. She was taking oxcarbazepine 600mg twice a day. Her dose increased from 300mg twice a day earlier this year by psychiatrist. No seizures. Mood was okay, but she was bothered by tardive dyskinesia symptoms and did not like to go out in public because of it. She was seeing Dr. Mccarthy for this. [facility] Medical History (Updated 04/21/25 @ 10:00 by Jackelyn Macias CNP) Alzheimer disease Gait disturbance Neuroleptic-induced tardive dyskinesia Ascending aorta dilatation Nicotine dependence, cigarettes, uncomplicated Osteoporosis Wrist fracture, right Pulmonary nodules COPD (chronic obstructive pulmonary disease) Bronchiolitis Dyskinesia Complex partial seizure disorder History of seizure (HFpEF) heart failure with preserved ejection fraction Edema of both lower extremities PFO (patent foramen ovale) Anxiety and depression Low back pain Fatty liver Asthma COVID-19 vaccine series started Surgical History History of cholecystectomy History of colonoscopy History of ankle surgery History of loop electrical excision procedure (LEEP) History of esophagogastroduodenoscopy (EGD) Family History Mother Pancreatic cancer Social History Household Members: Family Housing: House Are you a primary rn progressive care unit to a significant other at home: Yes Do you presently have visiting nurse or other home services: No Alcohol intake: current Alcohol intake frequency: holidays/special occasions only Comment: hematoma mid chest & broken collar bone Patient Tobacco Use Status: Current everyday Tobacco user Tobacco use type: Cigarette Years Smoked: (onset 16yo, 1/2ppd x 47yrs 20+PYH) Second Hand Smoke Exposure: Yes Substance Use Type: Marijuana service: No 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al status: 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 Review of Systems Const Denies chills, Denies daytime sleepiness, Denies difficulty sleeping, Denies fatigue, Denies fever(s), Denies frequent falls, Denies headache(s), Denies increased appetite, Denies poor appetite, Denies snoring, Denies weakness, D enies weight gain and Denies weight loss Eyes Denies loss of vision ENT Denies vertigo, Denies dizziness and Denies headache(s) Card Denies chest pain at rest, Denies chest pain with activity, Denies syncope, Denies leg edema and Denies palpitations Resp Denies snoring GI Denies constipation, Denies heartburn, Denies diarrhea and Denies nausea Denies urinary frequency, Denies urinary incontinence and Denies urinary urgency Musc Denies abnormal gait, Denies numbness and Denies tingling Skin/Breast Denies dry skin and Denies rash Neuro Denies abnormal gait, Denies vertigo, Denies dizziness, Denies syncope, Denies frequent falls, Denies headache(s), Denies lack of coordination, Denies loss of vision, Denies memory loss, Denies numbness, Denies restless legs, Denies seizure-like activity, Denies tingling, Denies paresthesias, Denies tremor(s) and Denies weakness Psych Reports anxiety, Reports depression, Denies auditory hallucinations, Denies memory loss, Denies visual hallucinations and Denies suicidal ideation Endo Denies fatigue and Denies palpitations Physical Exam Const Other: General Appearance:? normal, in no acute distress. Skin:? no rashes, no significant birthmarks. Heart:? S1, S2 normal, no murmurs. Lungs:? clear anteriorly and posteriorly. Extremities:? no edema. Psych:? alert, oriented, cognitive function intact, cooperative with exam. Neuro Other: Mental Status:?Normal attention, orientation, memory and affect.? Cranial Nerves:?Pupils are equal, round and reactive to light. External occular muscles are intact. Visual albright are full. Face is symmetrical. Facial sensations are normal. Tongue is midline. Palate elevates symmetrically. Shoulder shrugging is normal. Hearing to bedside conversation is normal. Sensory Exam:?....? Coordination:?No ataxia,?no titubation.? Gait Exam: Within normal limits. Extrapyramidal System:?Mod dyskinetic movements of hips and jaw Pronator Drift:?Not present.? Involuntary Movements:?No tremors seen.? Speech:?Normal.? Results Reviewed Results Reviewed: EEG at [facility] [place] in November 2018: left hemispheric sharps and slow with P3 phase reversal CT brain WO at [facility] [place] in November 2018: mild atropy MRI brain WO at [facility] [place] in November 2018: mild atrophy. Assessment & Plan Assessment & Plan (1) Complex partial seizure disorder: Comment: sees Dr Linton last visit 11/06/2020 not on chart Code(s): G40.209 - Localization-related (focal) (partial) symptomatic epilepsy and epileptic syndromes with complex partial seizures, not intractable, without status epilepticus Category: Medical Plan: Continue oxcarbazepine 600mg 1 tablet twice a day. Follow up in 6 months or sooner as needed. (2) Neuroleptic-induced tardive dyskinesia: Code(s): G24.01 - Drug induced subacute dyskinesia; T43.505A - Adverse effect of unspecified antipsychotics and neuroleptics, initial encounter Category: Medical Plan: Following with Dr. Mccarthy. Coding Level of Care Code Est Pt Level 3 (12147) Diagnoses Complex partial seizure disorder G40.209 Neuroleptic-induced tardive dyskinesia G24.01; T43.505A
--- OUTSIDE RECORDS SUMMARY | 2025-04-21 11:33 | XMS_ITS | Patient Health Record ---
Author Organization [facility] Address [address] [place] [address] Care Team Providers Care [employer]or Name Role Phone Charbel Burdick MD Primary Care Provider Angelito Franz Jr Unavailable [phone] Allergies No Known Allergies Reason For Referral [...] Status Risk Notes Problem Colon cancer screening (701039670) Colon cancer screening (Z12.11) Active confirmed Problem Dysphagia (62532092) Dysphagia (R13.10) Active confirmed Problem Gastroesophageal reflux disease without esophagitis (853821768) Gastroesophageal reflux disease without esophagitis (K21.9) Active confirmed Problem Gastroesophageal reflux disease (595374602) GERD (gastroesophageal reflux disease) (K21.9) Active confirmed Problem Dysphagia (55749431) Dysphagia, unspecified type (R13.10) Active confirmed Problem Diarrhea (00108607) Diarrhea, unspecified type (R19.7) Active confirmed Problem Indeterminate colitis (410662558) 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 [address] [place] [address] 07/28/2024 Angelito Adler Jr Indeterminate colitis K52.3 [facility] [address] [place] [address] 08/04/2024 Angelito Adler Jr Assessments Encounter Date [...] Deena frausto Jr, 08/01/2025 10:20:00 AM, [address] [facility], [address], [place], [address], Insurance Providers Payer Name Payer Address Payer Phone Subscriber Number Group Number Insured Name Patient Relationship to Insured Coverage Start Date Coverage End Date MEDICARE OF [place] [address] [place] [address] [phone] [id number] DIDIER JIMENEZ Self - patient is the insured [facility] [address] [place] [id number] [id number] DIDIER JIMENEZ Self - patient is the [...]
== END 2025-04-21 10:19 | disposition home or self-care (01) ==
LOC: HO.HSM 09:53
PROVIDERS: PCP Internal Medicine; Visit Provider Registered Nurse
DX: G40.209 Localization-related (focal) (partial) symptomatic epilepsy and epileptic syndromes with complex partial seizures, not intractable, without status epilepticus (principal); G24.01 Drug induced subacute dyskinesia; T43.505A Adverse effect of unspecified antipsychotics and neuroleptics, initial encounter
CPT/HCPCS: 99213

== ENCOUNTER → 2025-04-21 09:52 | Outpatient (BNVA) | payer MEDICARE, MEDICAID, SELFPAY | PROVIDERS: PCP Internal Medicine; Visit Provider Registered Nurse | DX: G40.209 Localization-related (focal) (partial) symptomatic epilepsy and epileptic syndromes with complex partial seizures, not intractable, without status epilepticus (principal); G24.01 Drug induced subacute dyskinesia; T43.505A Adverse effect of unspecified antipsychotics and neuroleptics, initial encounter | CPT/HCPCS: 99212 ==